=== PATIENT | male | born 1945 | race Asian ===

== ENCOUNTER 2017-09-19 14:56 | Inpatient (IN) | payer MEDICARE, BC ==
[~2017-09-19] VITALS: Ht 167.6 cm; Wt 39.5 kg
--- NOTE | 2017-09-19 15:08 | NUR ---
ANGEL FROM HOME DT SOB AND GENERALIZED WEAKNESS X 4 WEEKS. PATIENT IS AWAKE AND ALERT. NOT IN DISTRESS. SKIN IS WARM TO TOUCH AND NON DIAPHORETIC. PT IS AFEBRILE, PATIENT REPORTED HAVING POOR APETITE. GOWNED PT AND PLACED ON TELE MONITOR. VSS.
--- NOTE | 2017-09-19 15:39 | NUR ---
EKG IN PROGRESS
--- NOTE | 2017-09-19 15:41 | NUR ---
CALLED RT FOR BREATHING TX
[2017-09-19 15:45] LABS: BASOPHILS # (AUTO) 0.2 /CMM (0.0-0.2); BASOPHILS % (AUTO) 3.1 % (0.0-2.0); HEMATOCRIT 34 % (39-51); HEMOGLOBIN 11.6 g/dL (13.5-17.5); LYMPHOCYTES # (AUTO) 0.4 /CMM (0.8-4.8); LYMPHOCYTES % (AUTO) 5.8 % (20.0-44.0); MEAN CORPUSCULAR HEMOGLOBIN 28 PG (26.0-33.0); MEAN CORPUSCULAR HGB CONC 34 g/dl (31.0-36.0); MEAN CORPUSCULAR VOLUME 82 fL (80-96); MONOCYTES # (AUTO) 0.6 /CMM (0.1-1.30); MONOCYTES % (AUTO) 7.7 % (2.0-12.0); NEUTROPHILS # (AUTO) 6.3 /CMM (1.8-8.9); NEUTROPHILS % (AUTO) 82.4 % (43.0-81.0); PLATELET COUNT (AUTO) 554 /CMM (150-450); RDW COEFFICIENT OF VARIATION 15.5 (11.5-15.0); WHITE BLOOD COUNT (AUTO) 7.6 K/uL (4.3-11.0)
[2017-09-19] MEDS ORDERED: IPRATROPIUM NEB FS 0.5 MG/2.5 ML AMPUL.NEB ONE (15:52)
[2017-09-19] MEDS ORDERED: ALBUTEROL FS 2.5 MG/3 ML VIAL.NEB ONE (15:52)
[2017-09-19 15:57] LABS: CARBON DIOXIDE 25 mmol/L (21-32); CHLORIDE 96 mmol/L (98-107); CREATININE 0.8 mg/dL (0.6-1.3); GLUCOSE 112 mg/dL (74-106); POTASSIUM 4.1 mmol/L (3.5-5.1); SODIUM SERUM 127 mmol/L (136-145); UREA NITROGEN, BLOOD 18 mg/dL (7-18)
[2017-09-19] MEDS ORDERED: ALBUTEROL FS 2.5 MG/3 ML VIAL.NEB NEB ONE (16:00)
[2017-09-19] MEDS ORDERED: IPRATROPIUM NEB FS 0.5 MG/2.5 ML AMPUL.NEB NEB ONE (16:00)
[2017-09-19] MEDS ORDERED: IV NS 0.9% 1,000 ML BAG IV ONE (16:00)
[2017-09-19 16:05] LABS: TROPONIN I < 0.017 ng/mL (0.00-0.056)
[2017-09-19 16:09] LABS: ALANINE AMINOTRANSFERASE 20 U/L (12-78); ALBUMIN 1.6 g/dL (3.4-5.0); ALKALINE PHOSPHATASE 180 U/L (46-116); ASPARTATE AMINOTRANSFERASE 16 U/L (15-37); B-TYPE NATRIURETIC PEPTIDE 832 PG/ML (0-125); BILIRUBIN,DIRECT 0.1 mg/dL (0.0-0.2); BILIRUBIN,TOTAL 0.3 mg/dL (0.2-1.0); TOTAL PROTEIN, SERUM 5.9 g/dL (6.4-8.2)
--- NOTE | 2017-09-19 16:32 | NUR ---
CALLED NURSING SUP. FOR TELE BED
[2017-09-19] MEDS ORDERED: BECL10.62 IH (16:34)
[2017-09-19] MEDS ORDERED: ALBU18HF2 INH (16:34)
[2017-09-19] MEDS ORDERED: FERR325T24 PO (16:34)
[2017-09-19] MEDS ORDERED: CEFD300C3 PO (16:34)
[2017-09-19] MEDS ORDERED: MELO-105 PO (16:34)
[2017-09-19] MEDS ORDERED: TRIA1CAP2 PO (16:34)
--- NOTE | 2017-09-19 16:36 | NUR ---
TELE 104 FOR COPD EXACERBATION, GENERALIZED WEAKNESS, FAILURE TO THRIVE, ALLY PEREZ ADMITTING
--- NOTE | 2017-09-19 17:51 | NUR ---
PT TRANSPORTED TO [facility]
[2017-09-19 18:26] VITALS: BP 95/60
--- NOTE | 2017-09-19 18:50 | NUR ---
TITRATOR PATIENT ADMITTED TO ROOM 104, UNDER THE CARE OF ALLY PEREZ, STILL WAITING FOR ADMISSION ORDERS. PATIENT A/OX4, AZERBAIJANI AND YAKUT SPEAKER, DENIES PAIN OR DISCOMFORT AT THIS TIME, ON O2 AT 2LPM VIA NC, SKIN ASSESSMENT DONE, PHOTOS AND TAKEN AND PLACED IN CHART. PATIENT VERBALIZED FEELING SHORT OF BREATH, NEEDS ATTENDED, CALL LIGHT WITHIN REACH, WILL ENDORSE TO SONG PLUGGER FOR ERNESTINA.
[2017-09-19] MEDS ORDERED: IV NS 0.9% 1,000 ML IV PRN (18:57)
[2017-09-19] MEDS ORDERED: MAG HYDROX/AL HYDROX/SIMETH 30 ML UDC PO PRN (19:00)
[2017-09-19] MEDS ORDERED: ONDANSETRON HCL/PF 4 MG/2 ML VIAL IVP PRN (19:00)
[2017-09-19] MEDS ORDERED: MAGNESIUM HYDROXIDE 30 ML UDC PO PRN (19:00)
[2017-09-19] MEDS ORDERED: Z GUARD REMEDY 2 OZ OINT TP PRN (19:00)
[2017-09-19] MEDS ORDERED: HYDROCODONE/APAP 5/325MG 1 EACH TABLET PO PRN (19:00)
[2017-09-19] MEDS ORDERED: ZOLPIDEM TARTRATE 5 MG TABLET PO PRN (19:00)
[2017-09-19 20:00] VITALS: BP 112/58
[2017-09-19] MEDS ORDERED: LEVOFLOXACIN 500 MG /D5W 100ML 500 MG in PREMIX 1 EA IV SCH (20:00)
--- NOTE | 2017-09-19 20:00 | NUR ---
GERMAN RN NOTES RECEIVED PATIENT REPORT FROM AM NURSE. PT. IS A/O X4 ON 2L OXYGEN VIA NC WITH SPO2 OF 98%. PT DENIES ANY PAIN OR DISCOMFORT AT THIS TIME. SPUTUM AND URINE SPECIMENS ARE COLLECTED BY MD ORDER. PT IS PLACED ON AIRBORNE PRECAUTION BY MD ORDER. ALL SAFETY PRECAUTIONS ARE IMPLEMENTED, BED IN LOW, LOCKED POSITION, CALL LIGHT IN REACH. WILL CONT. TO MONITOR.
[2017-09-19] MEDS: ENOXAPARIN SODIUM 30 MG/0.3 ML DISP.SYRIN SQ SCH (21:04)
--- NOTE | 2017-09-19 23:00 | NUR ---
2300 BRANDON PEREZ CALLED WITH ORDER TO PUT PATIENT ON AIRBORNE ISOLATION FOR R/O TB, ORDER NOTED AND CARRIED OUT.
[2017-09-20] VITALS: BP 95/60
[2017-09-20 04:00] VITALS: BP 92/60
[2017-09-20 07:10] LABS: APPEARANCE,URINE TURBID (CLEAR); BILIRUBIN,URINE NEGATIVE (NEGATIVE); BLOOD, URINE NEGATIVE Ery/uL (NEGATIVE); COLOR,URINE DARK YELLO (YELLOW); KETONES,URINE NEGATIVE (NEGATIVE); LEUKOCYTE ESTERASE ,URINE NEGATIVE (NEGATIVE); NITRITE, URINE NEGATIVE (NEGATIVE); UGLUCOSE NEGATIVE (NEGATIVE); UROBILINOGEN,URINE 0.2 EU/dL (0.2)
--- NOTE | 2017-09-20 07:10 | NUR ---
RN INITIAL NOTES: REC'D AWAKE ON BED, NOT IN ANY DISTRESS, A/O X 4, DENIES ANY PAIN/DISCOMFORT. ON NC/2LPM, NO SOB. ON TELEMONITOR, SR 89 BPM. HAS R AC G20, PL, NS X 75 CC/HR INFUSING WELL, NO S/SX OF INFECTION/INFILTRATION NOTED. ISOLATION PREC OBSERVED. PROVIDED COMFORT & SAFETY MEASURES. BED KEPT LOW & IN LOCKED POS. CALL LIGHT PLACED W/IN REACH. WILL CONT TO MONITOR & ATTEND PT NEEDS.
[2017-09-20 07:13] LABS: PROTEIN,URINE TRACE mg/dl (NEGATIVE)
[2017-09-20 07:17] LABS: BACTERIA,URINE Few /HPF (None Seen); RBC,URINE 0-2 /HPF (0-2); WBC,URINE 0-2 /HPF (0-3)
[2017-09-20 07:18] LABS: CALCIUM OXALATE CRYSTALS,UR Many /HPF (None Seen); SQUAMOUS EPITHELIAL CELL,UR Rare /HPF (None Seen); URINE AMORPHOUS URATE Many /HPF (None Seen)
[2017-09-20 07:31] LABS: BILIRUBIN,TOTAL 0.2 mg/dL (0.2-1.0); CALCIUM, SERUM 7.5 mg/dL (8.5-10.1); CREATININE 0.7 mg/dL (0.6-1.3); MAGNESIUM 1.7 mg/dL (1.8-2.4); PHOSPHORUS 2.8 mg/dL (2.5-4.9); POTASSIUM 3.9 mmol/L (3.5-5.1); TOTAL PROTEIN, SERUM 5.5 g/dL (6.4-8.2)
[2017-09-20 07:32] LABS: BASOPHILS % (AUTO) 0.4 % (0.0-2.0); EOSINOPHILS % (AUTO) 0.5 % (0.0-6.0); HEMATOCRIT 33 % (39-51); HEMOGLOBIN 10.8 g/dL (13.5-17.5); LYMPHOCYTES # (AUTO) 0.4 /CMM (0.8-4.8); LYMPHOCYTES % (AUTO) 6.6 % (20.0-44.0); MEAN CORPUSCULAR HEMOGLOBIN 28 PG (26.0-33.0); MEAN CORPUSCULAR HGB CONC 33 g/dl (31.0-36.0); MEAN CORPUSCULAR VOLUME 87 fL (80-96); MONOCYTES # (AUTO) 0.6 /CMM (0.1-1.30); NEUTROPHILS # (AUTO) 5.3 /CMM (1.8-8.9); NEUTROPHILS % (AUTO) 83.5 % (43.0-81.0); PLATELET COUNT (AUTO) 460 /CMM (150-450); RDW COEFFICIENT OF VARIATION 16.8 (11.5-15.0); RED BLOOD CELL COUNT(AUTO) 3.82 MIL/uL (4.5-6.0); WHITE BLOOD COUNT (AUTO) 6.3 K/uL (4.3-11.0)
[2017-09-20 07:46] LABS: ALBUMIN 1.4 g/dL (3.4-5.0)
--- NOTE | 2017-09-20 07:49 | NUR ---
WOUND CARE CONSULT: PT PRESENTS EXTREMELY CACHECTIC WITH VERY BONY SACRAL AREA AND BLANCHABLE REDNESS, PRESENT ON ADMISSION. PT ON FIRST STEP MATTRESS. ALL SKIN PROTECTION MEASURES IN PLACE AND DISCUSSED WITH NURSING STAFF. WILL SEE PRN. ARMANDO IN AGREEMENT WITH PLAN OF CARE. Addendum: 09/20/17 at 0750 by JUAQUIN BELL WNDNU Amended: Links added.
[2017-09-20 08:00] VITALS: BP 135/60
[2017-09-20] MEDS: PANTOPRAZOLE 40 MG TABLET.DR PO SCH (08:17)
[2017-09-20] MEDS: MEGESTROL ACETATE SUSP 400 MG/10 ML UDC PO SCH ×2 (08:17→17:05)
[2017-09-20] MEDS: FERROUS SULFATE (325 MG) 325 MG/TAB TABLET PO SCH (08:17)
[2017-09-20] MEDS: methylPREDNISolone SOD SUCC 40 MG/ML VIAL IV SCH ×2 (08:17→17:05)
[2017-09-20] MEDS: MELOXICAM 7.5 MG TABLET PO SCH (08:17)
[2017-09-20] MEDS: ENSURE ENLIVE CHOC 237 ML CAN PO SCH ×2 (09:02→17:06)
[2017-09-20] MEDS ORDERED: FUROSEMIDE 20 MG/2 ML VIAL IV ONE (09:30)
--- NOTE | 2017-09-20 11:00 | NUR ---
RN NOTES: REC'D INSTRUCTIONS FROM CN TO ORDER AFB W/ CS FOR TODAY & AFB TOMORROW AT 6AM & 6PM. SPUTUM COLLECTED BY RT.
[2017-09-20] MEDS: Magnesium 1GM/D5W 100ML PREMIX 100 ML IV SCH ×2 (11:24→12:23)
[2017-09-20 12:00] VITALS: BP 109/73
[2017-09-20 15:31] LABS: URINE SODIUM, RANDOM 30 mmol/l (40-220)
--- NOTE | 2017-09-20 15:45 | NUR ---
RN NOTES: PT INFORMED THAT DR. NIETO WANTED PREVIOUS CXR RESULTS PRIOR TO HOSPITALIZATION. PER PT, HE WILL CALL HIS EX- MARJORIE TO ASK FOR THIS RECORDS. CONSENT SECURED FOR CT SCAN OF THE CHEST W/ CONTRAST. Addendum: 09/20/17 at 1755 by RENE MERCADO RN ADDENDUM: MARJORIE WAS ABLE TO BRING PT'S PREVIOUS CT SCAN W/ CD. PLACED IN THE CHART.
[2017-09-20] MEDS ORDERED: IOHEXOL-300 100 ML VIAL IV ONE (15:47)
[2017-09-20] MEDS ORDERED: IV NS 0.9% 250 ML IV ONE (15:47)
[2017-09-20] MEDS ORDERED: CT SWABBABLE VALVE TRANS SET 1 EA INFUS.SET MC ONE (15:47)
[2017-09-20 16:00] VITALS: BP 97/68
[2017-09-20 17:43] LABS: OSMOLALITY,URINE 685 mOS/kg (340-1090)
--- NOTE | 2017-09-20 18:30 | NUR ---
RN CLOSING NOTES: NO ACUTE CHANGES NOTED W/IN SHIFT. PT TOLERATED NC/2LPM, NO SOB. ON TELEMONITOR, STILL SR. R AC G20, SL, KEPT PATENT & INTACT. ISOLATION PREC OBSERVED. KEPT WELL RESTED. NEEDS ATTENDED. BED KEPT LOW & IN LOCKED POS. CALL LIGHT PLACED W/IN REACH. WILL ENDORSE TO PM RN FOR ERNESTINA.
[2017-09-20 20:00] VITALS: BP 98/68
[2017-09-20] MEDS ORDERED: LEVOFLOXACIN 250 MG /D5W 50 ML 250 MG in PREMIX 1 EA IV SCH (20:00)
--- NOTE | 2017-09-20 20:50 | NUR ---
RN NOTES PATIENT WITH LOW TEMPERATURE RECTALLY. OBTAINED NEW ORDER FOR NITZA HUGGER AND APPLIED TO PATIENT. WILL CONTINUE TO MONITOR
[2017-09-20] MEDS ORDERED: ACETYLCYSTEINE 20% ORAL SOLN 6,000 MG/30 ML VIAL PO SCH (21:00)
[2017-09-20] MEDS: ENOXAPARIN SODIUM 30 MG/0.3 ML DISP.SYRIN SQ SCH (21:22)
[2017-09-21] VITALS: BP 125/75
[2017-09-21 04:00] VITALS: BP 113/67
--- NOTE | 2017-09-21 06:35 | NUR ---
RN NOTES RT SESAR ATTEMPTED TO COLLECT AFB SPUTUM CULTURE. UNABLE TO COLLECT DUE TO NOT ENOUGH SECRETIONS AND PATIENT REFUSED DEEP SUCTIONING PER RT. RN EXPLAINED RISKS AND BENEFITS X 3 AND STILL REFUSED
[2017-09-21 07:06] LABS: CALCIUM, SERUM 8.7 mg/dL (8.5-10.1); CREATININE 0.8 mg/dL (0.6-1.3); MAGNESIUM 2.4 mg/dL (1.8-2.4); PHOSPHORUS 3.8 mg/dL (2.5-4.9); POTASSIUM 3.8 mmol/L (3.5-5.1)
--- NOTE | 2017-09-21 07:10 | NUR ---
RN INITIAL NOTES: REC'D PT ASLEEP ON BED, EASILY AROUSABLE, NOT IN ANY DISTRESS, A/O X 4, DENIES ANY PAIN/DISCOMFORT AT THIS TIME. ON NC/2LPM, NO SOB. ON TELEMONITOR, SR 78 BPM. HAS R AC G20, SL, PATENT & INTACT, NO S/SX OF INFECTION/INFILTRATION NOTED. ISOLATION PREC OBSERVED. PROVIDED COMFORT & SAFETY MEASURES. BED KEPT LOW & IN LOCKED POS. CALL LIGHT PLACED W/IN REACH. WILL CONT TO MONITOR & ATTEND PT NEEDS. RT INFORMED TO COLLECT SPUTUM SPECIMEN FOR AFB TEST.
[2017-09-21 07:15] LABS: THYROID STIMULATING HORMONE 1.17 uIU/mL (0.358-3.74); URIC ACID 5.4 mg/dL (2.6-7.2)
[2017-09-21 07:17] LABS: THYROID STIMULATING HORMONE 1.13 uIU/mL (0.358-3.74)
[2017-09-21 08:00] VITALS: BP 120/76
[2017-09-21] MEDS: MELOXICAM 7.5 MG TABLET PO SCH (08:17)
[2017-09-21] MEDS: MEGESTROL ACETATE SUSP 400 MG/10 ML UDC PO SCH ×2 (08:17→16:56)
[2017-09-21] MEDS: PANTOPRAZOLE 40 MG TABLET.DR PO SCH (08:17)
[2017-09-21] MEDS: FERROUS SULFATE (325 MG) 325 MG/TAB TABLET PO SCH (08:17)
[2017-09-21] MEDS: methylPREDNISolone SOD SUCC 40 MG/ML VIAL IV SCH ×2 (08:17→16:56)
[2017-09-21] MEDS: ENSURE ENLIVE CHOC 237 ML CAN PO SCH ×2 (08:22→18:30)
[2017-09-21] MEDS: ACETYLCYSTEINE 20% ORAL SOLN 6,000 MG/30 ML VIAL PO SCH ×2 (08:23→22:59)
--- NOTE | 2017-09-21 10:45 | NUR ---
RN NOTES: DR. NIETO MADE AWARE THAT WE TRIED CONTACTING PT'S PREVIOUS MD RE: CXR RESULTS. BUT PER NETWORK CONTROL TECHNICIAN, PT DOESN'T HAVE ANY CXR RESULT. (ONLY CT SCAN - WHICH DR. NIETO ALREADY REVIEWED)
[2017-09-21 12:00] VITALS: BP 114/72
[2017-09-21] MEDS ORDERED: CT SWABBABLE VALVE TRANS SET 1 EA INFUS.SET MC ONE (14:03)
[2017-09-21] MEDS ORDERED: IV NS 0.9% 250 ML IV ONE (14:03)
[2017-09-21] MEDS ORDERED: IOHEXOL-300 100 ML VIAL IV ONE (14:03)
[2017-09-21 16:00] VITALS: BP 141/95
[2017-09-21 16:48] LABS: OCCULT BLOOD STOOL POSITIVE (NEGATIVE)
--- NOTE | 2017-09-21 18:30 | NUR ---
RN CLOSING NOTES: NO ACUTE CHANGES NOTED W/IN SHIFT. PT TOLERATED NC/2LPM, NO SOB. ON TELEMONITOR, STILL SR. LFA G20, SL, KEPT PATENT & INTACT. ISOLATION PREC OBSERVED. KEPT WELL RESTED. NEEDS ATTENDED. BED KEPT LOW & IN LOCKED POS. CALL LIGHT PLACED W/IN REACH. WILL ENDORSE TO PM RN FOR ERNESTINA.
--- NOTE | 2017-09-21 19:30 | NUR ---
RN/TELE NOTES: RECEIVED PT. IN BED W/ HOB ELEVATED. A/O X 4. W/ O2 @ 2LPM VIA N/C SAT 95%. ON TELE MONITOR W/ SR @70. DENIES ANY C/O CHEST PAIN OR SOB AT PRESENT. CONTINENT OF B/B. USES URINAL AND ABLE TO AMBULATE TO BATHROOM. LFA G 20 PATENT AND INTACT W/ NO S/S OF INFECTION/INFILTRATION NOTED. BEDS LOCKED AND IN LOW POSITION. CALL LIGHT W/ REACH. ISOLATION PRECAUTION OBSERVED. WILL CONTINUE TO MONITOR.
[2017-09-21 20:00] VITALS: BP_SYST 104; BP_SYST 121; BP_DIAS 68; BP_DIAS 75
[2017-09-21] MEDS: LEVOFLOXACIN (250MG) 250 MG TABLET PO SCH (21:36)
[2017-09-21] MEDS: ENOXAPARIN SODIUM 30 MG/0.3 ML DISP.SYRIN SQ SCH (21:46)
[2017-09-22] VITALS: BP 108/74
[2017-09-22 04:00] VITALS: BP 107/68
--- NOTE | 2017-09-22 06:29 | NUR ---
TELE/RN NOTES: NO ACUTE CHANGES NOTED DURING THIS SHIFT. REPORT GIVEN TO AM NURSE FOR ERNESTINA.
--- NOTE | 2017-09-22 07:00 | NUR ---
RN NOTES: RECEIVED PT. ON BED , A/Ox4, RESPIRATION ZELDA AND UNLABORED, ON 2L O2 N/C , NO SOB NOTED , ON TELE HR IN 70' SR , LFA IV SITE G 20 CDI, ISOLATION PRECAUTION OBSERVED, SR UP x3, CALL LIGHT WITHIN EASY REACH, BED LOCKED AND IN LOWEST POSITION. CONTINUE TO MONITOR.
[2017-09-22 07:19] LABS: CALCIUM, SERUM 8.7 mg/dL (8.5-10.1); CREATININE 0.9 mg/dL (0.6-1.3); MAGNESIUM 2.3 mg/dL (1.8-2.4); PHOSPHORUS 3.2 mg/dL (2.5-4.9); POTASSIUM 3.9 mmol/L (3.5-5.1)
[2017-09-22 08:00] VITALS: BP 103/79
[2017-09-22 08:09] LABS: IMMUNOGLOBULIN A, SERUM 292 mg/dL (61-437); IMMUNOGLOBULIN G, SERUM 1252 mg/dL (700-1600); IMMUNOGLOBULIN M, SERUM 63 mg/dL (20-172)
[2017-09-22] MEDS: MEGESTROL ACETATE SUSP 400 MG/10 ML UDC PO SCH ×2 (08:20→16:29)
[2017-09-22] MEDS: MELOXICAM 7.5 MG TABLET PO SCH (08:20)
[2017-09-22] MEDS: PANTOPRAZOLE 40 MG TABLET.DR PO SCH (08:20)
[2017-09-22] MEDS: methylPREDNISolone SOD SUCC 40 MG/ML VIAL IV SCH ×2 (08:20→16:29)
[2017-09-22] MEDS: FERROUS SULFATE (325 MG) 325 MG/TAB TABLET PO SCH (08:20)
[2017-09-22] MEDS: ACETYLCYSTEINE 20% ORAL SOLN 6,000 MG/30 ML VIAL PO SCH ×2 (08:21→21:50)
[2017-09-22] MEDS: ENSURE ENLIVE CHOC 237 ML CAN PO SCH ×2 (08:30→16:30)
[2017-09-22 09:06] LABS: HEMATOCRIT 33 % (39-51); HEMOGLOBIN 11.3 g/dL (13.5-17.5); LYMPHOCYTES # (AUTO) 0.2 /CMM (0.8-4.8); LYMPHOCYTES % (AUTO) 1.9 % (20.0-44.0); MEAN CORPUSCULAR HEMOGLOBIN 29 PG (26.0-33.0); MEAN CORPUSCULAR HGB CONC 34 g/dl (31.0-36.0); MEAN CORPUSCULAR VOLUME 84 fL (80-96); MONOCYTES # (AUTO) 0.5 /CMM (0.1-1.30); MONOCYTES % (AUTO) 5.9 % (2.0-12.0); NEUTROPHILS # (AUTO) 7.5 /CMM (1.8-8.9); NEUTROPHILS % (AUTO) 92.2 % (43.0-81.0); PLATELET COUNT (AUTO) 471 /CMM (150-450); RDW COEFFICIENT OF VARIATION 15.9 (11.5-15.0); RED BLOOD CELL COUNT(AUTO) 3.94 MIL/uL (4.5-6.0); WHITE BLOOD COUNT (AUTO) 8.2 K/uL (4.3-11.0)
[2017-09-22 10:19] LABS: AFP, TUMOR MARKER 4.1 ng/mL (0.0-8.3)
--- NOTE | 2017-09-22 10:34 | NUR ---
RT SPUTUM SAMPLE OBTAINED AND PLACED IN [facility]. LAB CALLED FOR PHOTOENGRAVING FINISHER.
[2017-09-22 12:00] VITALS: BP 99/66
--- NOTE | 2017-09-22 12:00 | NUR ---
RN NOTES PT STABLE , CONTINUE TO MONITOR .
[2017-09-22 16:00] VITALS: BP 125/71
[2017-09-22 16:15] LABS: QFT MITOGEN VALUE 0.81 IU/mL (.); QFT TB AG MINUS NIL VALUE 0.01 IU/mL (.); QFT TB AG VALUE 0.17 IU/mL (.); QFT TB GOLD Negative (Negative)
--- NOTE | 2017-09-22 18:00 | NUR ---
RN NOTES RESPIRATION EVEN AND UNLABORED, DENIES ANY DISTRESS AT THIS TIME, TOLERATING REGULAR DIET WELL, SR UP x2, CALL LIGHT WITHIN EASY REACH , WILL ENDOSE TO LABOR SERVICE REPRESENTATIVE NURSE FOR ERNESTINA .
--- NOTE | 2017-09-22 19:20 | NUR ---
RN NOTES RECEIVED PT AWAKE, HOB ELEVATED, WITH O2 INHALATION AT 2LPM VIA NC AND TOLERATED WELL. PT ALERT ANC ORIENTED X4, DENIES ANY PAIN AND DISCOMFORT AT THIS TIME. TELEMONITOR READS SINUS RHYTHM WITH HEART RATE AT 62. ISOLATION PRECAUTION OBSERVED FOR POSSIBLE TB. KEPT COMFORTABLE AND ATTENDED. WILL CONTINUE TO MONITOR PT.
[2017-09-22 20:00] VITALS: BP 123/73
[2017-09-22] MEDS ORDERED: ACETYLCYSTEINE 20% SOLN 800 MG/4 ML VIAL ONE (21:15)
[2017-09-22] MEDS: ENOXAPARIN SODIUM 30 MG/0.3 ML DISP.SYRIN SQ SCH (21:51)
[2017-09-22] MEDS: LEVOFLOXACIN (250MG) 250 MG TABLET PO SCH (22:02)
[2017-09-23] VITALS: BP 119/68
[2017-09-23 04:00] VITALS: BP 104/65
--- NOTE | 2017-09-23 06:54 | NUR ---
RN NOTES PT ASLEEP, NO SIGNS OF DISTRESS AND DISCOMFORT, ON 2LPM O2 VIA NC AND TOLERATED WELL. VITAL SIGNS STABLE, AFEBRILE. NO SIGNIFICANT CHANGE IN CONDITION NOTED. ISOLATION PRECAUTION OBSERVED. ALL NEEDS ATTENDED. WILL ENDORSE TO MORNING RN FOR CONTINUITY OF CARE.
--- NOTE | 2017-09-23 07:00 | NUR ---
RN NOTES RECEIVED PT ON BED, A/Ox4, RESPIRATION EVEN AND UNLABORED, ON 2L O2 N/C , NO SOB NOTED, ON TELE HR IN 80'S , SR , L FA IV SITE CDI, SR UP x3, CALL LIGHT WITHIN EASY REACH, ISOLATION PRECAUTION OBSERVED , HOB ELEVATED, WILL CONTINUE TO MONITOR PT ROBIN .
[2017-09-23 07:08] LABS: EOSINOPHILS % (AUTO) 0.1 % (0.0-6.0); HEMATOCRIT 29 % (39-51); HEMOGLOBIN 9.8 g/dL (13.5-17.5); LYMPHOCYTES # (AUTO) 0.2 /CMM (0.8-4.8); MEAN CORPUSCULAR HEMOGLOBIN 29 PG (26.0-33.0); MEAN CORPUSCULAR HGB CONC 34 g/dl (31.0-36.0); MEAN CORPUSCULAR VOLUME 85 fL (80-96); MONOCYTES # (AUTO) 0.5 /CMM (0.1-1.30); MONOCYTES % (AUTO) 6.3 % (2.0-12.0); NEUTROPHILS # (AUTO) 7.6 /CMM (1.8-8.9); NEUTROPHILS % (AUTO) 90.6 % (43.0-81.0); PLATELET COUNT (AUTO) 418 /CMM (150-450); RDW COEFFICIENT OF VARIATION 15.9 (11.5-15.0); RED BLOOD CELL COUNT(AUTO) 3.43 MIL/uL (4.5-6.0); WHITE BLOOD COUNT (AUTO) 8.3 K/uL (4.3-11.0)
[2017-09-23 07:22] LABS: CALCIUM, SERUM 8.1 mg/dL (8.5-10.1); CREATININE 0.7 mg/dL (0.6-1.3); MAGNESIUM 2.1 mg/dL (1.8-2.4); PHOSPHORUS 2.3 mg/dL (2.5-4.9); POTASSIUM 4.1 mmol/L (3.5-5.1)
[2017-09-23 08:00] VITALS: BP 98/65
[2017-09-23 08:10] LABS: *SPE A/G RATIO 0.6 (0.7-1.7); *SPE ALPHA-1-GLOBULIN 0.5 g/dL (0.0-0.4); *SPE GLOBULIN, TOTAL 3.6 g/dL (2.2-3.9); *SPE M-SPIKE Not Observed g/dL (Not Observed); *SPEGAMMA GLOBULIN 1.1 g/dL (0.4-1.8)
[2017-09-23] MEDS: PANTOPRAZOLE 40 MG TABLET.DR PO SCH (08:17)
[2017-09-23] MEDS: MEGESTROL ACETATE SUSP 400 MG/10 ML UDC PO SCH ×2 (08:17→16:29)
[2017-09-23] MEDS: MELOXICAM 7.5 MG TABLET PO SCH (08:17)
[2017-09-23] MEDS: FERROUS SULFATE (325 MG) 325 MG/TAB TABLET PO SCH (08:18)
[2017-09-23] MEDS: methylPREDNISolone SOD SUCC 40 MG/ML VIAL IV SCH ×2 (08:18→16:29)
[2017-09-23] MEDS: ENSURE ENLIVE CHOC 237 ML CAN PO SCH ×2 (08:19→16:30)
[2017-09-23 12:00] VITALS: BP 93/55
--- NOTE | 2017-09-23 12:00 | NUR ---
RN NOTES PT UP TO THE BATH ROOM , STABLE , CONTINUE TO MONITOR.
[2017-09-23] MEDS ORDERED: K PHOS NEUTRAL 250 MG TABLET PO ONE (15:00)
[2017-09-23 16:00] VITALS: BP 97/58
--- NOTE | 2017-09-23 18:08 | NUR ---
RN NOTES VSS STABLE , PT AT REST , L FA IV SITE CDI, , SR UP x2, CALL LIGHT WITHIN EASY REACH, WILL ENDORSE TO SECONDARY MARKET MANAGER NURSE FOR ERNESTINA .
[2017-09-23 20:00] VITALS: BP 120/65
[2017-09-23] MEDS: LEVOFLOXACIN (250MG) 250 MG TABLET PO SCH (21:07)
[2017-09-23] MEDS: ENOXAPARIN SODIUM 30 MG/0.3 ML DISP.SYRIN SQ SCH (21:08)
[2017-09-24] VITALS: BP 106/58
[2017-09-24 04:00] VITALS: BP 127/80
--- NOTE | 2017-09-24 07:30 | NUR ---
ROPE TOW OPERATOR INITIAL NOTES: RECEIVED PT IN BED, AWAKE. A&O X4. REMAINS OR ISOLATION TO R/O TB. O2 VIA NC AT 2LPM, PT SATURATING WELL AND NO SOB NOTED AT THIS TIME. PT ON TELE MONITOR SR. IV TO LFA #20 GAUGE PATENT AND IN TACT. DENIES ANY PAIN OR DISCOMFORT AT THIS TIME. BED IN LOW LOCKED POSITION, CALL LIGHT WITHIN REACH. PLAN OF CARE DISCUSSED WITH PT. WILL CONTINUE TO MONITOR.
[2017-09-24 08:00] VITALS: BP 124/78
[2017-09-24 08:02] LABS: CALCIUM, SERUM 8.5 mg/dL (8.5-10.1); CREATININE 0.6 mg/dL (0.6-1.3); MAGNESIUM 2.1 mg/dL (1.8-2.4); PHOSPHORUS 2.6 mg/dL (2.5-4.9); POTASSIUM 3.6 mmol/L (3.5-5.1)
[2017-09-24] MEDS: MELOXICAM 7.5 MG TABLET PO SCH (08:15)
[2017-09-24] MEDS: MEGESTROL ACETATE SUSP 400 MG/10 ML UDC PO SCH ×2 (08:15→16:17)
[2017-09-24] MEDS: ENSURE ENLIVE CHOC 237 ML CAN PO SCH ×2 (08:15→16:17)
[2017-09-24] MEDS: FERROUS SULFATE (325 MG) 325 MG/TAB TABLET PO SCH (08:15)
[2017-09-24] MEDS: PANTOPRAZOLE 40 MG TABLET.DR PO SCH (08:16)
[2017-09-24] MEDS: methylPREDNISolone SOD SUCC 40 MG/ML VIAL IV SCH ×2 (08:16→16:17)
[2017-09-24 12:00] VITALS: BP 108/66
[2017-09-24 16:00] VITALS: BP 110/64
--- NOTE | 2017-09-24 18:45 | NUR ---
INTERPRETER DEAF END NOTES: PT REMAINS IN BED AWAKE, A&O X4. DENIES ANY PAIN OR DISCOMFORT AT THIS TIME. REMAINS ON O2 VIA NC, SATURATING >95%. ALL DUE MEDS GIVEN ORDERED WITHOUT COMPLICATIONS. BED IN LOW LOCKED POSITION, CALL LIGHT WITHIN REACH. WILL ENDORSE TO PM SHIFT FOR CONTINUITY OF CARE.
[2017-09-24 20:00] VITALS: BP 109/69
[2017-09-24] MEDS: LEVOFLOXACIN (250MG) 250 MG TABLET PO SCH (21:16)
[2017-09-24] MEDS: ENOXAPARIN SODIUM 30 MG/0.3 ML DISP.SYRIN SQ SCH (21:17)
[2017-09-25] VITALS (7 sets, daily range): BP systolic 111–144; BP diastolic 60–81
--- NOTE | 2017-09-25 07:54 | NUR ---
RN NOTE: PATIENT RECEIVED ALERT AWAKE ORIENTED X4. DENIES PAIN & DISCOMFORT. ON TELE MONITOR SINUS RHYTHM. IV CATH, INTACT, DRESSING DRY & CLEAN. SAFETY MEASURES OBSERVED, CALL LIGHT WITHIN REACH. WILL CONTINUE TO MONITOR.
[2017-09-25] MEDS: FERROUS SULFATE (325 MG) 325 MG/TAB TABLET PO SCH (08:46)
[2017-09-25] MEDS: PANTOPRAZOLE 40 MG TABLET.DR PO SCH (08:47)
[2017-09-25] MEDS: methylPREDNISolone SOD SUCC 40 MG/ML VIAL IV SCH ×2 (08:47→16:55)
[2017-09-25] MEDS: MELOXICAM 7.5 MG TABLET PO SCH (08:47)
[2017-09-25] MEDS: MEGESTROL ACETATE SUSP 400 MG/10 ML UDC PO SCH ×2 (08:47→16:55)
[2017-09-25] MEDS: ENSURE ENLIVE CHOC 237 ML CAN PO SCH ×2 (08:54→16:56)
[2017-09-25 10:17] LABS: CALCIUM, SERUM 8.2 mg/dL (8.5-10.1); CREATININE 0.6 mg/dL (0.6-1.3); MAGNESIUM 1.9 mg/dL (1.8-2.4); PHOSPHORUS 2.7 mg/dL (2.5-4.9); POTASSIUM 3.8 mmol/L (3.5-5.1)
[2017-09-25 10:22] LABS: HEMOGLOBIN 11.1 g/dL (13.5-17.5); RED BLOOD CELL COUNT(AUTO) 4.01 MIL/uL (4.5-6.0); WHITE BLOOD COUNT (AUTO) 8.2 K/uL (4.3-11.0)
[2017-09-25 10:23] LABS: BASOPHILS % (AUTO) 0.1 % (0.0-2.0); EOSINOPHILS % (AUTO) 0.1 % (0.0-6.0); HEMATOCRIT 34 % (39-51); LYMPHOCYTES % (AUTO) 5.4 % (20.0-44.0); MEAN CORPUSCULAR HEMOGLOBIN 28 PG (26.0-33.0); MEAN CORPUSCULAR HGB CONC 32 g/dl (31.0-36.0); MEAN CORPUSCULAR VOLUME 86 fL (80-96); MONOCYTES % (AUTO) 9.4 % (2.0-12.0); PLATELET COUNT (AUTO) 446 /CMM (150-450); RDW COEFFICIENT OF VARIATION 17.1 (11.5-15.0)
--- NOTE | 2017-09-25 16:31 | NUR ---
CHARGE NURSE NOTE PER DR. DALY [PULMO] AFB SMEAR REVIEWED, NEGATIVE X 3 - WILL DC ISOLATION.
--- NOTE | 2017-09-25 18:41 | NUR ---
RN NOTE: PT REMAINS ALERT AWAKE ORIENTED. DERRICK PAIN & DISCOMFORT. NO EPISODE OF COUGH NOTED. VITAL SIGNS WNL. SEEN & ASSESSED BY DR. DALY AT BEDSIDE. RECEIVED VERBAL ORDERS TO D/C ISOLATION. NO FALL/INJURY NOTED DURING SHIFT. SAFETY MEASURES OBSERVED. CALL LIGHT WITHIN REACH. WILL ENDORSE TO PM SHIFT FOR CONTINUITY OF CARE.
--- NOTE | 2017-09-25 19:30 | NUR ---
CEMETERY COUNSELOR INITIAL NOTE, RECEIVED PT IN BED, AWAKE, ALERT AND ORIENTED, ABLE TO COMMUNICATE NEEDS AND CONCERNS, ISOLATION DC ALREADY PER MD, BREATHING EVEN AND UNLABORED, NO S/S OF ACUTE DISTRESS/SOB AT THIS TIME, O2 VIA NC AT 2LPM, SR IN TELE MONITOR, IV TO LFA #20 GAUGE PATENT AND INTACT, NO S/S OF INFILTRATION AT SITE, DENIES ANY PAIN OR DISCOMFORT AT THIS TIME, BED LOCKED AND IN LOWEST POSITION, CALL LIGHT WITHIN REACH, WILL CONTINUE TO MONITOR CLOSELY.
[2017-09-25] MEDS: LEVOFLOXACIN (250MG) 250 MG TABLET PO SCH (20:47)
[2017-09-25] MEDS: ENOXAPARIN SODIUM 30 MG/0.3 ML DISP.SYRIN SQ SCH (20:48)
[2017-09-26] VITALS (8 sets, daily range): BP systolic 127–149; BP diastolic 72–93
--- NOTE | 2017-09-26 06:50 | NUR ---
RN MS CLOSING NOTES, RECEIVED PT IN BED, SLEEPING AT THIS TIME, BREATHING EVEN AND UNLABORED, NO S/S OF ACUTE DISTRESS/SOB AT THIS TIME, O2 VIA NC AT 2LPM, SR IN TELE MONITOR, IV TO LFA #20 GAUGE PATENT AND INTACT, DENIES ANY PAIN OR DISCOMFORT AT THIS TIME, BED LOCKED AND IN LOWEST POSITION, CALL LIGHT WITHIN REACH, NO SIGNIFICANT CHANGE OF CONDITION THROUGHOUT THE NIGHT, WILL ENDORSE CONTINUITY OF CARE TO ONCOMING NURSE.
--- NOTE | 2017-09-26 07:00 | NUR ---
RN NOTES RECEIVED PT ON BED, A/Ox4, RESPIRATION EVEN AND UNLABORED, ON 2L O2 N/C , NO SOB NOTED, HR IN 70'S, SR , LFA #20 IV SITE G 20 , CDI, NO S/S OF INFILTRATION NOTED, SR UP x2, BED LOCKED AND IN LOWEST POSITION, CALL LIGHT WITHIN EASY REACH, WILL CONTINUE TO MONITOR CLOSELY.
[2017-09-26] MEDS: PANTOPRAZOLE 40 MG TABLET.DR PO SCH (08:11)
[2017-09-26] MEDS: MELOXICAM 7.5 MG TABLET PO SCH (08:11)
[2017-09-26] MEDS: MEGESTROL ACETATE SUSP 400 MG/10 ML UDC PO SCH ×2 (08:11→16:09)
[2017-09-26] MEDS: methylPREDNISolone SOD SUCC 40 MG/ML VIAL IV SCH ×2 (08:11→16:09)
[2017-09-26] MEDS: FERROUS SULFATE (325 MG) 325 MG/TAB TABLET PO SCH (08:11)
[2017-09-26] MEDS: ENSURE ENLIVE CHOC 237 ML CAN PO SCH ×2 (08:12→16:11)
[2017-09-26] MEDS ORDERED: SODIUM CL FOR INHALATION 3% 15 ML VIAL.NEB IH ONE (10:30)
--- NOTE | 2017-09-26 11:10 | NUR ---
RN NOTES SPUTUM FOR AFB AND CYTOLOGY ALONG WITH THE REQUEST FORM SENT TO THE LAB PER DR GERSON MENESES .
--- NOTE | 2017-09-26 14:00 | NUR ---
KRYSTAL KAMARA CONSENT OBTAINED FOR BRONCHOSCOPY IN AM .
--- NOTE | 2017-09-26 17:00 | NUR ---
RN NOTES VSS STABLE , PT REFUSED AM LAB FOR SECOND TIME , ALLY PEREZ BRANCH BILLING PAYROLL CLERK NOTIFED
--- NOTE | 2017-09-26 18:26 | NUR ---
RN NOTES PT STABLE , NO DISTRESS NOTED, OUT OF BED TO BR , VSS STABLE , NO SIGNIFICANT CHANGES NOTED ON THIS SHIFT.
--- NOTE | 2017-09-26 19:30 | NUR ---
COMB FIXER INITIAL NOTE, RECEIVED PT IN BED, AWAKE, ALERT AND ORIENTED, ABLE TO COMMUNICATE NEEDS AND CONCERNS, BREATHING EVEN AND UNLABORED, NO S/S OF ACUTE DISTRESS/SOB AT THIS TIME, NO C/O PAIN OER DISCOMFORT REPORTED, O2 VIA NC AT 2LPM, SR IN THE TELE MONITOR, IV TO LFA #20 GAUGE PATENT AND INTACT, NO S/S OF INFILTRATION AT SITE, DENIES ANY PAIN OR DISCOMFORT AT THIS TIME, WILL START IVF AT MIDNIGHT ORDERED, BED LOCKED AND IN LOWEST POSITION, CALL LIGHT WITHIN REACH, WILL HAVE BRONCHOSCOPY IN THE MORNING, PATIENT EDUCATION PROVIDED REGARDING PROCEDURE AND THAT WILL BE NPO AFTER SPECIFIC TIME, PATIENT VERBALIZED UNDERSTANDING, WILL CONTINUE TO MONITOR CLOSELY.
[2017-09-26] MEDS: LEVOFLOXACIN (250MG) 250 MG TABLET PO SCH (20:32)
[2017-09-26] MEDS: ENOXAPARIN SODIUM 30 MG/0.3 ML DISP.SYRIN SQ SCH (20:32)
[2017-09-26] MEDS: TEMAZEPAM 15 MG CAPSULE PO PRN (23:45)
[2017-09-26] MEDS ORDERED: IV D5/ 0.9% NACL 1,000 ML IV SCH (23:59)
[2017-09-27] VITALS: BP 123/69
[2017-09-27 04:00] VITALS: BP 130/82
--- NOTE | 2017-09-27 05:10 | NUR ---
TOOL CARRIER NOTES, ATTEMPTED TO COLLECT SPUTUM AT THIS TIME, AND PATIENT REFUSED, HE STATED THAT HE WILL DO THAT LATER IN THE MORNING.
--- NOTE | 2017-09-27 05:30 | NUR ---
PUNCHING MACHINE OPERATOR NOTES, PATIENT WILLING TO ATTEMPT COLLECTION OF SPUTUM, COLLECTED.
--- NOTE | 2017-09-27 06:24 | NUR ---
SUPERVISOR PHOTOSTAT CLOSING NOTES, PATIENT AWAKE, ALERT AND ORIENTED, ABLE TO COMMUNICATE NEEDS AND CONCERNS, BREATHING EVEN AND UNLABORED, NO S/S OF ACUTE DISTRESS/SOB AT THIS TIME, O2 VIA NC AT 2LPM, SR IN TELE MONITOR, IV TO LFA #20 GAUGE PATENT AND INTACT, IVF INFUSING WELL AND PATIENT TOLERATED WELL, NPO SINCE 5AM FOR BRONCHOSCOPY TODAY, DENIES ANY PAIN OR DISCOMFORT AT THIS TIME, BED LOCKED AND IN LOWEST POSITION, CALL LIGHT WITHIN REACH, NO SIGNIFICANT CHANGE OF CONDITION THROUGHOUT THE NIGHT, SPUTUM COLLECTED, WILL ENDORSE CONTINUITY OF CARE TO ONCOMING NURSE.
--- NOTE | 2017-09-27 07:00 | NUR ---
RN NOTES RECEIVED PT ON BED, A/Ox4. ON RA ,RESPIRATION EVEN AND UNLABORED, NO DISTRESS NOTED, ON TELE HR IN 90'S , SR , PT IS NPO FOR BRONCHOSCOPY TODAY , D5NS AT 75CC/HR RUNNING VIA L FA IV SITE, SR UP x3, CALL LIGHT WITHIN EASY REACH , BED LOCKED AND IN LOWEST POSITION, CONTINUE TO MONITOR
[2017-09-27 07:19] LABS: CALCIUM, SERUM 7.9 mg/dL (8.5-10.1); CREATININE 0.5 mg/dL (0.6-1.3); POTASSIUM 3.6 mmol/L (3.5-5.1)
[2017-09-27 07:20] LABS: BASOPHILS % (AUTO) 0.1 % (0.0-2.0); EOSINOPHILS % (AUTO) 0.1 % (0.0-6.0); HEMATOCRIT 28 % (39-51); HEMOGLOBIN 9.7 g/dL (13.5-17.5); LYMPHOCYTES # (AUTO) 0.2 /CMM (0.8-4.8); LYMPHOCYTES % (AUTO) 4.4 % (20.0-44.0); MEAN CORPUSCULAR HEMOGLOBIN 30 PG (26.0-33.0); MEAN CORPUSCULAR HGB CONC 34 g/dl (31.0-36.0); MEAN CORPUSCULAR VOLUME 86 fL (80-96); MONOCYTES # (AUTO) 0.6 /CMM (0.1-1.30); MONOCYTES % (AUTO) 11.4 % (2.0-12.0); NEUTROPHILS # (AUTO) 4.5 /CMM (1.8-8.9); PLATELET COUNT (AUTO) 346 /CMM (150-450); RDW COEFFICIENT OF VARIATION 16.5 (11.5-15.0); RED BLOOD CELL COUNT(AUTO) 3.29 MIL/uL (4.5-6.0); WHITE BLOOD COUNT (AUTO) 5.3 K/uL (4.3-11.0)
[2017-09-27 08:00] VITALS: BP 146/83
[2017-09-27] MEDS: ENSURE ENLIVE CHOC 237 ML CAN PO SCH ×2 (08:00→16:50)
[2017-09-27] MEDS: MELOXICAM 7.5 MG TABLET PO SCH (08:19)
[2017-09-27] MEDS: MEGESTROL ACETATE SUSP 400 MG/10 ML UDC PO SCH ×2 (08:19→16:49)
[2017-09-27] MEDS: PANTOPRAZOLE 40 MG TABLET.DR PO SCH (08:19)
[2017-09-27] MEDS: FERROUS SULFATE (325 MG) 325 MG/TAB TABLET PO SCH (08:19)
[2017-09-27] MEDS: methylPREDNISolone SOD SUCC 40 MG/ML VIAL IV SCH ×2 (08:19→16:49)
[2017-09-27] MEDS ORDERED: IV D5/ 0.9% NACL 1,000 ML IV PRN (09:56)
[2017-09-27 11:18] LABS: LYMPHOCYTES % (MANUAL) 14 % (16-48); MONOCYTES % (MANUAL) 3 % (0-11.0); NEUTROPHILS % (MANUAL) 83 (42-76)
[2017-09-27 12:00] VITALS: BP 136/83
--- NOTE | 2017-09-27 14:31 | NUR ---
RN NOTES PT TO OR FOR BRONCHOSCOPY AT THIS TIME IN STABLE CONDITION .
[2017-09-27] MEDS ORDERED: FENTANYL PF 100MCG/2ML AMPUL ONE (14:32)
[2017-09-27] MEDS ORDERED: ROCURONIUM BROMIDE 50 MG/5 ML ONE (14:32)
[2017-09-27] MEDS ORDERED: MIDAZOLAM HCL 2 MG/2ML VIAL ONE (14:32)
[2017-09-27] MEDS ORDERED: ALBUTEROL FS 2.5 MG/3 ML VIAL.NEB ONE (15:31)
[2017-09-27] MEDS ORDERED: ALBUTEROL 17GM INHALER ONE (15:33)
[2017-09-27] MEDS ORDERED: ALBUTEROL HALF STRENGTH 1.25 MG/3 ML VIAL.NEB ONE (15:46)
[2017-09-27] MEDS ORDERED: ALBUTEROL HALF STRENGTH 1.25 MG/3 ML VIAL.NEB NEB ONE (16:00)
[2017-09-27 16:49] VITALS: BP 140/89
--- NOTE | 2017-09-27 16:49 | NUR ---
RN NOTES PT BACK FROM OR , VSS STABLE , CONTINUE TO MONITOR
[2017-09-27] MEDS ORDERED: IPRATROPIUM NEB FS 0.5 MG/2.5 ML AMPUL.NEB NEB ONE (17:30)
[2017-09-27] MEDS ORDERED: ALBUTEROL FS 2.5 MG/3 ML VIAL.NEB NEB ONE (17:30)
--- NOTE | 2017-09-27 18:26 | NUR ---
RN NOTES VSS STABLE , PT STABLE , EATING DINNER , IVF D/LANE PER ALLY WASTE REDUCTION COORDINATOR. BED LOCKED AND IN LOWEST POSITION , WILL ENDORSE TO RUBBER MOLD MAKER NURSE FOR ERNESTINA .
[2017-09-27 20:00] VITALS: BP 122/80
--- NOTE | 2017-09-27 20:00 | NUR ---
RN INITIAL NOTES RECEIVED PT AWAKE ON BED, FAMILY AT BEDSIDE. PT IS A/O X3, ON 2L NASAL CANNULA, NO S/S OF RESP DISTRESS, SATURATING WELL. COMPLAINTS OF ACHING THROAT PAIN 5/10 DUE TO BRONCHOSCOPY THAT WAS DONE EARLIER TODAY. CURRENTLY SINUS TACH ON THE MONITOR, HR 120'S. PT IS CONTINENT AND ABLE TO USE THE URINAL NEEDED. LEFT FOREARM 20G SL FLUSHED AND PATENT, NO S/S OF INFILTRATION/INFECTION, DRESSING CDI. BED LOW AND LOCKED, SIDERAILS UP, BED ALARM ON, CALL LIGHT WITHIN REACH. WILL MONITOR
[2017-09-27] MEDS: HYDROCODONE BIT/HOMATROPINE 5 ML UDC PO PRN ×2 (20:07→23:30)
[2017-09-27] MEDS: LEVOFLOXACIN (250MG) 250 MG TABLET PO SCH (20:07)
[2017-09-27] MEDS: ENOXAPARIN SODIUM 30 MG/0.3 ML DISP.SYRIN SQ SCH (20:08)
[2017-09-27] MEDS: IPRATROPIUM NEB FS 0.5 MG/2.5 ML AMPUL.NEB NEB PRN ×2 (20:16→23:12)
[2017-09-27] MEDS: ALBUTEROL FS 2.5 MG/0.5 ML VIAL.NEB NEB PRN ×2 (20:17→23:12)
[2017-09-27] MEDS: TEMAZEPAM 15 MG CAPSULE PO PRN (23:33)
[2017-09-28] VITALS: BP 113/66
[2017-09-28 04:00] VITALS: BP 122/83
--- NOTE | 2017-09-28 06:35 | NUR ---
RN CLOSING NOTES PT REMAINS STABLE OF THE MOMENT. ALL DUE MEDS GIVEN, AM CARE PROVIDED. WILL ENDORSE ERNESTINA TO AM RN
--- NOTE | 2017-09-28 07:10 | NUR ---
TELE/RN INITIAL NOTES RECEIVED PT IN BED, A/O X4, ON 2L O2 VIA NC, TOLERATING WELL, NO SOB NOTED. SINUS TACHY ON TELEMONITOR. NO C/O PAIN AT THIS TIME. WITH INTACT AND PATENT LFA SL, NO SIGNS OF INFECTION/INFILTRATION NOTED. HOB ELEVATED. SAFETY MEASURES IN PLACED. CALL LIGHT WITHIN REACH. WILL CONT TO MONITOR
[2017-09-28 08:00] VITALS: BP 127/89
[2017-09-28] MEDS: ENSURE ENLIVE CHOC 237 ML CAN PO SCH ×2 (08:17→16:34)
[2017-09-28] MEDS: PANTOPRAZOLE 40 MG TABLET.DR PO SCH (08:21)
[2017-09-28] MEDS: methylPREDNISolone SOD SUCC 40 MG/ML VIAL IV SCH ×2 (08:41→16:34)
[2017-09-28] MEDS: HYDROCODONE BIT/HOMATROPINE 5 ML UDC PO PRN ×2 (08:41→16:54)
[2017-09-28] MEDS: MEGESTROL ACETATE SUSP 400 MG/10 ML UDC PO SCH ×2 (08:41→16:34)
[2017-09-28] MEDS: MELOXICAM 7.5 MG TABLET PO SCH (08:41)
[2017-09-28] MEDS: FERROUS SULFATE (325 MG) 325 MG/TAB TABLET PO SCH (08:41)
[2017-09-28] MEDS: IPRATROPIUM NEB FS 0.5 MG/2.5 ML AMPUL.NEB NEB PRN (09:28)
[2017-09-28] MEDS: ALBUTEROL FS 2.5 MG/0.5 ML VIAL.NEB NEB PRN (09:28)
--- NOTE | 2017-09-28 09:30 | NUR ---
RN NOTES NOTIFIED RT SARAHI THAT PT FOR AFB. UNABLE TO COLLECT SAMPLE AT THIS TIME.
--- NOTE | 2017-09-28 10:30 | NUR ---
RN NOTES ATTEMPTED TO COLLECT SPUTUM, STILL UNABLE TO COLLECT SAMPLE. WILL FOLLOW UP
--- NOTE | 2017-09-28 11:15 | NUR ---
RN NOTES RECEIVED TELEPHONE ORDER FROM CONDITIONER TUMBLER OPERATOR AMY: START ON CLEAR LIQUIDS DIET; NPO POST MIDNIGHT; STAT GOLYTELY X1 BOTTLE, STAT MAGNESIUM CITRATE X 1 BOTTLE; FLEET ENEMA X2 PRN IF STOOL NOT CLEAR BY TOMORROW AM; CONSENT FOR EGD AND COLONOSCOPY
[2017-09-28] MEDS ORDERED: MAGNESIUM CITRATE 296 ML BOTTLE PO STA ×2 (11:20→11:56)
[2017-09-28] MEDS ORDERED: NA PHOS,M-B/NA PHOS,DI-BA 1 EA ENEMA RC PRN (11:30)
[2017-09-28] MEDS ORDERED: PEG 3350/NA SULF,BICARB,CL/KCL 4,000 ML BOTTLE PO STA (11:38)
[2017-09-28 12:00] VITALS: BP 129/76
[2017-09-28] MEDS ORDERED: LORAZEPAM INJ 2 MG/ML VIAL IV PRN (12:30)
[2017-09-28] MEDS ORDERED: MORPHINE SULFATE SOLN CONCENTRATED 20 MG/ML SL PRN (12:30)
[2017-09-28] MEDS ORDERED: ATROPINE SULFATE OPHTH SOLN 15 ML BOTTLE SL PRN (12:30)
[2017-09-28] MEDS: LEVOFLOXACIN (750 MG) 750 MG TABLET PO SCH (15:40)
[2017-09-28 16:00] VITALS: BP 129/83
--- NOTE | 2017-09-28 16:35 | NUR ---
RN NOTES HELD DUE ENSURE. PT IS ON CLEAR LIQUID DIET
--- NOTE | 2017-09-28 19:03 | NUR ---
RN NOTES PT REMAINED IN STABLE CONDITION. NO ACUTE DISTRESS NOTED THROUGHOUT SHIFT. SAFETY MEASURES OBSERVED AT ALL TIMES. ALL NEEDS ANTICIPATED, ENDORSED TO PM SHIFT NURSE FOR ERNESTINA
--- NOTE | 2017-09-28 19:30 | NUR ---
MEDICAL SALES ASSOCIATE NOTE PT RECEIVED AWAKE AND ALERT. ON 2L OF O2 VIA NC AND SATURATING WELL. EXPLAINED TO PT ABOUT DRINKING ALL OF GOLYTELY BOTTLE UNTIL HAVING CLEAR BOWEL MOVEMENTS. PT VERBALIZED UNDERSTANDING. NPO AT MIDNIGHT. WILL MONITOR.
[2017-09-28 20:00] VITALS: BP 135/82
[2017-09-28] MEDS: ENOXAPARIN SODIUM 30 MG/0.3 ML DISP.SYRIN SQ SCH (20:56)
--- NOTE | 2017-09-28 22:00 | NUR ---
PLATE MAKER NOTE PT REFUSING TO DRINK GOLYTELY C/O DIZZINESS. EXPLAINED RISKS AND BENEFITS. PT SAID HE WOULD DRINK A LITTLE BIT MORE.
[2017-09-29] VITALS: BP 145/77
--- NOTE | 2017-09-29 03:30 | NUR ---
DIGGING MACHINE OPERATOR NOTE PT REFUSING TO DRINK GOLYTELY. ENCOURAGED TO DRINK. LEFT MESSAGE TO DR. MILLS. AWAITING CALL BACK.
[2017-09-29 04:00] VITALS: BP 136/74
[2017-09-29] MEDS ORDERED: MAGNESIUM CITRATE 296 ML BOTTLE PO ONE (04:00)
[2017-09-29] MEDS ORDERED: NA PHOS,M-B/NA PHOS,DI-BA 1 EA ENEMA RC ONE (04:00)
--- NOTE | 2017-09-29 04:00 | NUR ---
RESIDENTIAL REAL ESTATE SALES MANAGER NOTE RECEIVED CALL BACK FROM DR MILLS WITH ORDERS FOR 2 FLEET ENEMAS NOW AND 1 BOTTLE OF MAG CITRATE. ORDERS NOTED AND CARRIED OUT. PT WELL TOLERATED. WILL MONITOR.
--- NOTE | 2017-09-29 07:13 | NUR ---
CHECKROOM ATTENDANT NOTES: RECEIVED PT ON BED ALERT, AWAKE AND ORIENTED X3. ABLE TO MAKE NEEDS KNOWN. NO ACUTE DISTRESS NOTED. NO COMPLAINTS OF PAIN OR DISCOMFORT AT THIS TIME. BREATHING EVEN AND UNLABORED WITH NORMAL RESPIRATIONS. IV ON LEFT FOREARM G20 INTACT AND PATENT. KEPT CLEAN, DRY AND COMFORTABLE. SAFETY AND FALL PRECAUTIONS OBSERVED AND MAINTAINED. CALL LIGHT WITHIN REACH. ALL NEEDS ATTENDED. WILL CONTINUE TO MONITOR PT.
[2017-09-29] MEDS: PANTOPRAZOLE 40 MG TABLET.DR PO SCH (07:30)
[2017-09-29 08:00] VITALS: BP 135/75
[2017-09-29] MEDS: ENSURE ENLIVE CHOC 237 ML CAN PO SCH ×2 (08:00→17:55)
--- NOTE | 2017-09-29 09:00 | NUR ---
CRYPTOANALYSIS TEACHER NOTES: PT CAME BACK FROM OR, ALERT AND AWAKE. IN NO APPARENT DISTRESS. VITAL SIGNS WNL. SINUS RHYTHM IN TELE MONITOR, HR 89. DENIES PAIN AT THIS TIME. NO SOB NOTED. CALL LIGHT WITHIN REACH. SAFETY AND FALL PRECAUTIONS OBSERVED AND MAINTAINED. WILL CONTINUE TO MONITOR PT.
[2017-09-29] MEDS: MELOXICAM 7.5 MG TABLET PO SCH (09:20)
[2017-09-29] MEDS: MEGESTROL ACETATE SUSP 400 MG/10 ML UDC PO SCH ×2 (09:20→17:45)
[2017-09-29] MEDS: FERROUS SULFATE (325 MG) 325 MG/TAB TABLET PO SCH (09:20)
[2017-09-29] MEDS: methylPREDNISolone SOD SUCC 40 MG/ML VIAL IV SCH ×2 (09:20→17:45)
[2017-09-29 12:00] VITALS: BP 130/73
[2017-09-29 16:00] VITALS: BP 120/74
--- NOTE | 2017-09-29 18:28 | NUR ---
TOP CAGER ENDING NOTES PT RESTING IN BED WITH NO ACUTE DISTRESS OR SOB, ALL DUE MEDS GIVEN, ALL NEEDS MET, PTS IV SITE LT FA 20 G IS INFILTRATED, CHECKED AND IV SITE IS NOT PATENT ANYMORE, WILL NEED NEW IV INSERTION, A&O X4 THAI, WILL CONTINUE CARE.
[2017-09-29 20:00] VITALS: BP 133/85
[2017-09-29] MEDS: ENOXAPARIN SODIUM 30 MG/0.3 ML DISP.SYRIN SQ SCH (21:43)
[2017-09-30] VITALS: BP 134/93
[2017-09-30] MEDS: TEMAZEPAM 15 MG CAPSULE PO PRN ×2 (00:44→22:50)
[2017-09-30] MEDS: HYDROCODONE BIT/HOMATROPINE 5 ML UDC PO PRN (00:46)
[2017-09-30 04:00] VITALS: BP 126/79
[2017-09-30 06:56] LABS: EOSINOPHILS % (AUTO) 0.1 % (0.0-6.0); HEMATOCRIT 27 % (39-51); HEMOGLOBIN 8.5 g/dL (13.5-17.5); LYMPHOCYTES # (AUTO) 0.3 /CMM (0.8-4.8); LYMPHOCYTES % (AUTO) 3.5 % (20.0-44.0); MEAN CORPUSCULAR HEMOGLOBIN 28 PG (26.0-33.0); MEAN CORPUSCULAR HGB CONC 32 g/dl (31.0-36.0); MEAN CORPUSCULAR VOLUME 88 fL (80-96); MONOCYTES # (AUTO) 0.6 /CMM (0.1-1.30); NEUTROPHILS # (AUTO) 6.6 /CMM (1.8-8.9); NEUTROPHILS % (AUTO) 88.4 % (43.0-81.0); PLATELET COUNT (AUTO) 315 /CMM (150-450); RDW COEFFICIENT OF VARIATION 19.1 (11.5-15.0); RED BLOOD CELL COUNT(AUTO) 3.03 MIL/uL (4.5-6.0); WHITE BLOOD COUNT (AUTO) 7.5 K/uL (4.3-11.0)
--- NOTE | 2017-09-30 07:09 | NUR ---
CHILD CARE WORKER NOTES: RECEIVED PT ON BED ALERT AND AWAKE, NO ACUTE DISTRESS NOTED. DENIES PAIN AT THIS TIME. BREATHING EVEN AND UNLABORED WITH NORMAL RESPIRATIONS. ON TELE MONITOR, SINUS RHYTHM HR 75. KEPT CLEAN, DRY AND COMFORTABLE. CALL LIGHT PLACED WITHIN REACH. SAFETY AND FALL PRECAUTIONS OBSERVED AND MAINTAINED. ENCOURAGED TO VERBALIZE NEEDS AND CONCERNS AND TO CALL FOR ASSISTANCE IF NEEDED. WILL CONTINUE TO MONITOR PT.
[2017-09-30 07:12] LABS: CALCIUM, SERUM 7.5 mg/dL (8.5-10.1); CREATININE 0.5 mg/dL (0.6-1.3); POTASSIUM 4.2 mmol/L (3.5-5.1)
[2017-09-30] MEDS: PANTOPRAZOLE 40 MG TABLET.DR PO SCH (07:53)
[2017-09-30 08:00] VITALS: BP 127/73
--- NOTE | 2017-09-30 08:00 | NUR ---
COMMERCIAL PRINT SALESMAN NOTES: RECEIVED A CALL FROM INFECTIOUS DSE REGARDING PATIENT'S POSITIVE RESULT FROM BRONCHIAL BRUSHING. AIRBORNE ISOLATION IMPLEMENTED. WILL CONTINUE TO MONITOR PT.
[2017-09-30] MEDS: methylPREDNISolone SOD SUCC 40 MG/ML VIAL IV SCH ×2 (08:18→16:36)
[2017-09-30] MEDS: FERROUS SULFATE (325 MG) 325 MG/TAB TABLET PO SCH (08:18)
[2017-09-30] MEDS: MELOXICAM 7.5 MG TABLET PO SCH (08:18)
[2017-09-30] MEDS: ENSURE ENLIVE CHOC 237 ML CAN PO SCH ×2 (08:18→16:38)
[2017-09-30] MEDS: MEGESTROL ACETATE SUSP 400 MG/10 ML UDC PO SCH ×2 (08:18→16:36)
[2017-09-30 12:00] VITALS: BP 120/78
--- NOTE | 2017-09-30 14:00 | NUR ---
CALENDERER NOTES: RECEIVED A CALL FROM THE LAB REGARDING PTS POSITIVE AFB RESULT ON SPUTUM SAMPLE THAT WAS SENT LAST . PRODUCT DEMONSTRATOR ALLY PEREZ AND ID NURSE MADE AWARE. WILL CONTINUE TO MONITOR PT.
[2017-09-30] MEDS: LEVOFLOXACIN (750 MG) 750 MG TABLET PO SCH (15:04)
[2017-09-30 16:00] VITALS: BP 129/79
--- NOTE | 2017-09-30 16:14 | NUR ---
MARKING CLERK NOTES: SPOKE TO MENA FROM LAB REGARDING DR. WYNN'S ORDER FOR TB AND MAC PCR PROBE TESTING ON RECENT AFB POS STAIN FROM [facility], PER MENA SHE WILL TRY TO CALL [facility] AND ASK IF THEY CAN DO THE TEST. WILL FOLLOW UP.
[2017-09-30] MEDS: AZITHROMYCIN 250 MG TABLET PO SCH (16:36)
--- NOTE | 2017-09-30 17:12 | NUR ---
RN GYNECOLOGY NOTES: RECEIVED A CALL FROM LAB REGARDING THE RESPONSE OF [facility] STATING THAT FRESH SPECIMEN SHOULD BE COLLECTED AGAIN AND THEY CAN'T DO AN ADD ON ON THE TEST THAT THEY ALREADY RECEIVED. DR. WYNN NOTIFIED.
[2017-09-30] MEDS: ETHAMBUTOL HCL (400 MG) 400 MG TABLET PO SCH (18:11)
[2017-09-30] MEDS: CEFTRIAXONE 1 G in IV D5W 50 ML IV SCH (18:11)
--- NOTE | 2017-09-30 18:30 | NUR ---
SALES DEVELOPMENT EXECUTIVE NOTES: SPOKE WITH DR. WYNN, NEW ORDER FOR AF[employer] SPUTUM TB AND MAC PCR PROBE TESTING. ORDER CARRIED OUT.
--- NOTE | 2017-09-30 19:30 | NUR ---
REGIONAL MERCHANDISING MANAGER NOTES: PT ON BED. NO ACUTE DISTRESS NOTED. NO COMPLAINTS OF PAIN OR DISCOMFORT. NO SOB NOTED. WILL ENDORSE TO SENIOR COMPLIANCE OFFICER FOR CONTINUITY OF CARE.
--- NOTE | 2017-09-30 19:30 | NUR ---
TELE/RN NOTES: RECEIVED PT. IN BED W/ RESPIRATIONS EVEN AND UNLABORED. A/O X 3-4. W/ O2 @2LPM VIA N/C SAT. 98%. ON TELE MONITOR W/ SR @ 84. ON NEGATIVE PRESSURE FOR TB. USES URINAL AND BRP NEEDED. HAS RFA G #22 SL PATENT AND INTACT W/ NO S/S OF INFECTION/INFILTRATION NOTED. CALL LIGHT W/REACH. WILL CONTINUE TO MONITOR.
[2017-09-30 20:00] VITALS: BP 110/67
[2017-09-30] MEDS: ENOXAPARIN SODIUM 30 MG/0.3 ML DISP.SYRIN SQ SCH (21:24)
[2017-09-30] MEDS: PYRAZINAMIDE 500 MG TABLET PO SCH (21:25)
[2017-09-30] MEDS: ISONIAZID (300 MG) 300 MG TABLET PO SCH (21:25)
[2017-09-30] MEDS: RIFAMPIN 300 MG CAPSULE PO SCH (21:25)
[2017-09-30] MEDS: ALBUTEROL FS 2.5 MG/0.5 ML VIAL.NEB NEB PRN (22:38)
[2017-09-30] MEDS: IPRATROPIUM NEB FS 0.5 MG/2.5 ML AMPUL.NEB NEB PRN (22:38)
--- NOTE | 2017-09-30 23:30 | NUR ---
MORTGAGE ORIGINATOR OPENING NOTES: RECEIVED PT FROM RN, MARGE. PT IS ON 2LPM VIA NC. PT HAS IV ON R FOREARM #22G AND IS PATENT AND INTACT. CURRENTLY S/L. PT ON TELE BOX AND READING SHOWS SR 81. NO SOB NOTED. NO S/S OF DISTRESS. PT IS A/OX4. PT IS ABOUT TO GO TO SLEEP. CALL LIGHT WITHIN PT'S REACH. BED KEPT IN LOW, LOCKED POSITION, AND SIDE RAILSX 2 UP. WILL CONTINUE TO MONITOR PT.
--- NOTE | 2017-09-30 23:30 | NUR ---
SPECIAL DELIVERY WORKER NOTES: REPORT GIVEN TO RN. VILLEDA FOR ERNESTINA.
[2017-10-01] VITALS: BP 144/80
[2017-10-01 04:00] VITALS: BP 133/72
[2017-10-01 06:52] LABS: HEMATOCRIT 29 % (39-51); HEMOGLOBIN 9.2 g/dL (13.5-17.5); LYMPHOCYTES # (AUTO) 0.2 /CMM (0.8-4.8); LYMPHOCYTES % (AUTO) 2.3 % (20.0-44.0); MEAN CORPUSCULAR HEMOGLOBIN 29 PG (26.0-33.0); MEAN CORPUSCULAR HGB CONC 32 g/dl (31.0-36.0); MEAN CORPUSCULAR VOLUME 89 fL (80-96); MONOCYTES # (AUTO) 0.5 /CMM (0.1-1.30); MONOCYTES % (AUTO) 6.7 % (2.0-12.0); NEUTROPHILS # (AUTO) 7.2 /CMM (1.8-8.9); PLATELET COUNT (AUTO) 324 /CMM (150-450); RDW COEFFICIENT OF VARIATION 19.3 (11.5-15.0); RED BLOOD CELL COUNT(AUTO) 3.23 MIL/uL (4.5-6.0); WHITE BLOOD COUNT (AUTO) 7.9 K/uL (4.3-11.0)
--- NOTE | 2017-10-01 06:59 | NUR ---
RN PROGRESSIVE CARE UNIT CLOSING NOTES: ALL NEEDS WERE ATTENDED AND ANTICIPATED FOR. PT ON 2LPM VIA NC AND IS TOLERATING WELL. PT ASLEEP AT THIS TIME. PT IS ASLEEP AT THIS TIME. PT ON TELE BOX AND READING SHOWS ST 117. CALL LIGHT WITHIN PT'S REACH. BED KEPT IN LOW, LOCKED POSITION, AND SIDE RAILS X 2UP. AFB SPUTUM COLLECTED AND COLLECTED BY LAB. TB PRECAUTIONS MADE. WILL ENDORSE TO AM NURSE FOR ERNESTINA.
[2017-10-01 07:09] LABS: CALCIUM, SERUM 7.8 mg/dL (8.5-10.1); CREATININE 0.6 mg/dL (0.6-1.3); POTASSIUM 3.7 mmol/L (3.5-5.1)
[2017-10-01 08:00] VITALS: BP 103/72
--- NOTE | 2017-10-01 08:30 | NUR ---
SOLAR TECH NOTES PT IN BED, AWAKE, ALERT AND ORIENTED, NO COMPLAINT OF PAIN, RESPIRATIONS NORMAL, CALL LIGHT WITHIN REACH, NEEDS ATTENDED, ISOLATION PRECAUTIONS OBSERVED.
[2017-10-01] MEDS: methylPREDNISolone SOD SUCC 40 MG/ML VIAL IV SCH (09:34)
[2017-10-01] MEDS: PANTOPRAZOLE 40 MG TABLET.DR PO SCH (09:34)
[2017-10-01] MEDS: FERROUS SULFATE (325 MG) 325 MG/TAB TABLET PO SCH (09:34)
[2017-10-01] MEDS: MELOXICAM 7.5 MG TABLET PO SCH (09:35)
[2017-10-01] MEDS: ENSURE ENLIVE CHOC 237 ML CAN PO SCH ×2 (09:35→17:32)
[2017-10-01] MEDS: MEGESTROL ACETATE SUSP 400 MG/10 ML UDC PO SCH ×2 (09:35→17:32)
[2017-10-01 12:00] VITALS: BP_SYST 135; BP_SYST 97; BP_DIAS 72; BP_DIAS 75
[2017-10-01] MEDS: HYDROCODONE BIT/HOMATROPINE 5 ML UDC PO PRN (12:17)
--- NOTE | 2017-10-01 13:30 | NUR ---
LEAN MANUFACTURING SPECIALIST NOTES PT IN BED, AWAKE, ALERT AND ORIENTED, NOT IN PAIN OR DISTRESS, SEEN BY ALLY HAT FINISHING MATERIALS PREPARER, PLAN OF CARE DISCUSSED WITH PT, VERBALIZED UNDERSTANDING, CALL LIGHT WITHIN REACH, NEEDS ATTENDED.
[2017-10-01] MEDS: AZITHROMYCIN 250 MG TABLET PO SCH (15:06)
[2017-10-01 16:00] VITALS: BP 134/75
[2017-10-01] MEDS: ETHAMBUTOL HCL (400 MG) 400 MG TABLET PO SCH (17:32)
[2017-10-01] MEDS: CEFTRIAXONE 1 G in IV D5W 50 ML IV SCH (17:34)
--- NOTE | 2017-10-01 18:47 | NUR ---
CROWN IRONER NOTES PT IN BED, AWAKE, ALERT AND ORIENTED, WATCHING TV, DENIES PAIN, NOT IN DISTRESS, ON O2 AT 2LPM VIA NASAL CANULA, PM MEDS GIVEN, TOLERATING CURRENT DIET WELL, NOTED WITH GOOD APPETITE, COMPLIANT WITH NURSING CARE AND INTERVENTIONS, ALL NEEDS ATTENDED.
[2017-10-01 20:00] VITALS: BP 147/91
--- NOTE | 2017-10-01 20:00 | NUR ---
RN INITIAL NOTES: RECEIVED PT RESTING IN BED. PT IS ON 2LPM VIA NC. PT HAS IV ON R FOREARM #22G AND IS PATENT AND INTACT. CURRENTLY S/L. PT ON TELE BOX AND READING SHOWS ST 100-115. NO SOB NOTED. NO S/S OF DISTRESS. PT IS A/OX4. CALL LIGHT WITHIN PT'S REACH. BED KEPT IN LOW, LOCKED POSITION, AND SIDE RAILSX 2 UP. WILL CONTINUE TO MONITOR PT.
[2017-10-01] MEDS: TEMAZEPAM 15 MG CAPSULE PO PRN (21:31)
[2017-10-01] MEDS: PYRAZINAMIDE 500 MG TABLET PO SCH (21:31)
[2017-10-01] MEDS: RIFAMPIN 300 MG CAPSULE PO SCH (21:31)
[2017-10-01] MEDS: ISONIAZID (300 MG) 300 MG TABLET PO SCH (21:32)
[2017-10-01] MEDS: ENOXAPARIN SODIUM 30 MG/0.3 ML DISP.SYRIN SQ SCH (21:34)
[2017-10-02] VITALS: BP 139/84
[2017-10-02] MEDS: GUAIFENESIN/D-METHORPHAN HB 5 ML UDC PO PRN ×2 (01:31→05:10)
[2017-10-02 04:00] VITALS: BP 179/99
[2017-10-02] MEDS: HYDROCODONE/APAP 10/325MG 1 EA TABLET PO PRN (05:10)
--- NOTE | 2017-10-02 06:08 | NUR ---
RN CLOSING NOTES: ALL NEEDS WERE ATTENDED AND ANTICIPATED. PT ON 2LPM VIA NC AND IS TOLERATING WELL. PT IS ASLEEP AT THIS TIME. PT ON TELE BOX AND READING SHOWS ST 100-138. CALL LIGHT WITHIN PT'S REACH. BED KEPT IN LOW, LOCKED POSITION, AND SIDE RAILS X 2UP. TB PRECAUTIONS TAKEN. WILL ENDORSE TO AM NURSE FOR ERNESTINA.
[2017-10-02 08:00] VITALS: BP 117/69
[2017-10-02] MEDS: PANTOPRAZOLE 40 MG TABLET.DR PO SCH (08:08)
[2017-10-02] MEDS: FERROUS SULFATE (325 MG) 325 MG/TAB TABLET PO SCH (08:08)
[2017-10-02] MEDS: MEGESTROL ACETATE SUSP 400 MG/10 ML UDC PO SCH ×2 (08:08→16:33)
[2017-10-02] MEDS: MELOXICAM 7.5 MG TABLET PO SCH (08:08)
[2017-10-02] MEDS: ENSURE ENLIVE CHOC 237 ML CAN PO SCH ×2 (08:14→16:33)
[2017-10-02] MEDS ORDERED: IV NS 0.9% 500 ML IV ONE (08:30)
--- NOTE | 2017-10-02 08:30 | NUR ---
PT NOTED WITH ELEVATED HR 140'S-150'S. PER PM SHIFT, PAIN MEDICATION AND COUGH MEDICATION ALREADY GIVEN. PT C/O DIZZINESS WELL. ALLY PEREZ AWARE WITH NEW ORDER FOR NS 500CC BOLUS X1. CARRIED OUT. WILL CONTINUE TO MONITOR
[2017-10-02] MEDS ORDERED: methylPREDNISolone SOD SUCC 40 MG/ML VIAL IV SCH ×2 (09:00)
--- NOTE | 2017-10-02 10:30 | NUR ---
PT SEEN MY ALLY PEREZ. NEW ORDER RECEIVED FOR ATIVAN PRN. PT RESTING AT THIS TIME, HR 122. WILL CONTINUE TO MONITOR.
[2017-10-02 12:00] VITALS: BP 126/77
[2017-10-02] MEDS: LORAZEPAM INJ 2 MG/ML VIAL IV PRN (12:49)
--- NOTE | 2017-10-02 12:55 | NUR ---
PRN ATIVAN 0.25ML GIVEN FOR PT C/O FEELING ANXIOUS, ELEVATED HR. PRIOR TO ATIVAN, BP 126/77, HR 122. WILL CONTINUE TO MONITOR
--- NOTE | 2017-10-02 14:30 | NUR ---
PT RESTING AT THIS TIME, HR 102-105. ATIVAN EFFECTIVE
[2017-10-02] MEDS: AZITHROMYCIN 250 MG TABLET PO SCH (15:00)
[2017-10-02 16:00] VITALS: BP 136/82
[2017-10-02] MEDS: ETHAMBUTOL HCL (400 MG) 400 MG TABLET PO SCH (17:49)
[2017-10-02] MEDS: CEFTRIAXONE 1 G in IV D5W 50 ML IV SCH (17:56)
--- NOTE | 2017-10-02 19:00 | NUR ---
CORE MACHINE TENDER END NOTES: PT REMAINS IN BED, AWAKE AT THIS TIME. O2 VIA NC IN PLACE, SATURATING >95% AND NO SOB NOTED. PT DENIES PAIN OR DISCOMFORT AT THIS TIME. ALL MEDS GIVEN ORDERED. CONTINUE WITH ISOLATION PRECAUTIONS. ON TELE MONITOR ST, HR 99. BED IN LOW LOCKED POSITION, CALL LIGHT WITHIN REACH. WILL ENDORSE TO PM SHIFT FOR CONTINUITY OF CARE.
[2017-10-02 20:00] VITALS: BP 142/82
[2017-10-02] MEDS: PYRAZINAMIDE 500 MG TABLET PO SCH (21:30)
[2017-10-02] MEDS: RIFAMPIN 300 MG CAPSULE PO SCH (21:31)
[2017-10-02] MEDS: ISONIAZID (300 MG) 300 MG TABLET PO SCH (21:31)
[2017-10-02] MEDS: ENOXAPARIN SODIUM 30 MG/0.3 ML DISP.SYRIN SQ SCH (21:32)
[2017-10-02] MEDS: TEMAZEPAM 15 MG CAPSULE PO PRN (21:38)
[2017-10-03] VITALS: BP 134/84
[2017-10-03 04:00] VITALS: BP 145/93
[2017-10-03 06:26] LABS: EOSINOPHILS % (AUTO) 0.5 % (0.0-6.0); HEMATOCRIT 33 % (39-51); HEMOGLOBIN 10.6 g/dL (13.5-17.5); LYMPHOCYTES # (AUTO) 0.5 /CMM (0.8-4.8); LYMPHOCYTES % (AUTO) 3.1 % (20.0-44.0); MEAN CORPUSCULAR HEMOGLOBIN 29 PG (26.0-33.0); MEAN CORPUSCULAR HGB CONC 32 g/dl (31.0-36.0); MEAN CORPUSCULAR VOLUME 88 fL (80-96); MONOCYTES # (AUTO) 0.9 /CMM (0.1-1.30); MONOCYTES % (AUTO) 5.7 % (2.0-12.0); NEUTROPHILS % (AUTO) 90.7 % (43.0-81.0); PLATELET COUNT (AUTO) 377 /CMM (150-450); RDW COEFFICIENT OF VARIATION 20.7 (11.5-15.0); WHITE BLOOD COUNT (AUTO) 15.5 K/uL (4.3-11.0)
[2017-10-03] MEDS: PANTOPRAZOLE 40 MG TABLET.DR PO SCH (06:32)
[2017-10-03 06:55] LABS: CALCIUM, SERUM 7.9 mg/dL (8.5-10.1); CREATININE 0.5 mg/dL (0.6-1.3)
--- NOTE | 2017-10-03 07:05 | NUR ---
COMPUTER SYSTEM SPECIALIST OPENING NOTE RECEIVED BEDSIDE SBAR REPORT ON THE PATIENT. PATIENT IN NEGATIVE PRESSURE ROOM, AIRBORNE PRECAUTIONS IN PLACE. PATIENT IS A/O X4, AWAKE AND RESPONSIVE IN BED. BED IS LOCKED IN LOWEST POSITION, SIDE RAILS UP X3, CALL LIGHT WITHIN REACH. EDUCATED THE PATIENT TO CALL FOR ASSISTANCE USING THE CALL LIGHT. PATIENT VERBALIZED UNDERSTANDING. PATIENT IS AMBULATORY AND ORIENTED TO OWN ABILITIES. DENIES PAIN/DISCOMFORT AT THIS TIME. EXTERNAL MONITOR READING ST 124BPM. PATIENT PRESENTS SOON AFTER ALBUTEROL TREATMENT. ALL NEEDS ARE MET. WILL CONTINUE TO ASSESS/MONITOR THROUGHOUT THE SHIFT.
--- NOTE | 2017-10-03 07:30 | NUR ---
a/a/o times 4, c/o of being sob, breathing tx requested.
[2017-10-03 08:00] VITALS: BP 147/86
[2017-10-03] MEDS: MEGESTROL ACETATE SUSP 400 MG/10 ML UDC PO SCH ×2 (09:07→17:18)
[2017-10-03] MEDS: ENSURE ENLIVE CHOC 237 ML CAN PO SCH ×2 (09:07→17:29)
[2017-10-03] MEDS: MELOXICAM 7.5 MG TABLET PO SCH (09:07)
[2017-10-03] MEDS: FERROUS SULFATE (325 MG) 325 MG/TAB TABLET PO SCH (09:07)
[2017-10-03] MEDS: HYDROCODONE/APAP 10/325MG 1 EA TABLET PO PRN ×2 (09:08→09:09)
[2017-10-03] MEDS: LORAZEPAM INJ 2 MG/ML VIAL IV PRN (09:08)
--- NOTE | 2017-10-03 09:08 | NUR ---
PATIENT COMPLAINED OF ANXIETY CAUSING LABORED, SHALLOW RESPIRATIONS. ATIVAN ADMINISTERED ORDERED
--- NOTE | 2017-10-03 09:10 | NUR ---
DOCUMENTED PASSED DUE MEDS FROM PREVIOUS SHIFT NON-ADMINISTERED TO RID OF RED PASSED DUE REMINDER
[2017-10-03 12:00] VITALS: BP 119/76
[2017-10-03] MEDS: AZITHROMYCIN 250 MG TABLET PO SCH (15:49)
[2017-10-03 16:00] VITALS: BP 131/84
[2017-10-03] MEDS: ETHAMBUTOL HCL (400 MG) 400 MG TABLET PO SCH (17:18)
[2017-10-03] MEDS: CEFTRIAXONE 1 G in IV D5W 50 ML IV SCH (17:30)
--- NOTE | 2017-10-03 18:49 | NUR ---
FUEL SYSTEM MAINTENANCE SUPERVISOR CLOSING NOTE RECEIVED BEDSIDE SBAR REPORT ON THE PATIENT. PATIENT IN NEGATIVE PRESSURE ROOM, AIRBORNE PRECAUTIONS IN PLACE. PATIENT IS A/O X4, AWAKE AND RESPONSIVE IN BED. BED IS LOCKED IN LOWEST POSITION, SIDE RAILS UP X3, CALL LIGHT WITHIN REACH. EDUCATED THE PATIENT TO CALL FOR ASSISTANCE USING THE CALL LIGHT. PATIENT VERBALIZED UNDERSTANDING. PATIENT IS AMBULATORY AND ORIENTED TO OWN ABILITIES. DENIES PAIN/DISCOMFORT AT THIS TIME. PATIENT PRESENTS SOON AFTER ALBUTEROL TREATMENT. ALL NEEDS ARE MET. WILL ENDORSE TO THE ROAD MACHINE RUNNER NURSE FOR ERNESTINA.
--- NOTE | 2017-10-03 19:40 | NUR ---
ABSORBER OPERATOR INITIAL NOTES: RECEIVED PATIENT RESTING IN BED, ALERT AND ORIENTED, ABKE TO COMMUNICATE CONCERNS AND NEEDS, BREATHING EVEN AND UNLABORED, NO SOB/ACUTE DISTRESS NOTED AT THIS TIME, RIGHT FOREARM #22G PATENT AND INTACT, NO IVF AT THIS TIME, . NO S/S OF DISTRESS, CALL LIGHT WITHIN REACH, BED KEPT IN LOW, LOCKED POSITION, WILL CONTINUE TO MONITOR CLOSELY.
[2017-10-03 20:00] VITALS: BP 146/82
[2017-10-03] MEDS: PYRAZINAMIDE 500 MG TABLET PO SCH (21:19)
[2017-10-03] MEDS: ISONIAZID (300 MG) 300 MG TABLET PO SCH (21:19)
[2017-10-03] MEDS: RIFAMPIN 300 MG CAPSULE PO SCH (21:20)
[2017-10-03] MEDS: ENOXAPARIN SODIUM 30 MG/0.3 ML DISP.SYRIN SQ SCH (21:27)
[2017-10-03] MEDS: IPRATROPIUM NEB FS 0.5 MG/2.5 ML AMPUL.NEB NEB PRN (23:50)
[2017-10-03] MEDS: ALBUTEROL FS 2.5 MG/0.5 ML VIAL.NEB NEB PRN (23:50)
[2017-10-04] VITALS: BP 137/85
[2017-10-04 04:00] VITALS: BP 140/59
--- NOTE | 2017-10-04 06:23 | NUR ---
MOLDER OPERATOR CLOSING NOTES: PATIENT SLEEPING IN BED AT THIS TIME ABLE TO COMMUNICATE CONCERNS AND NEEDS, BREATHING EVEN AND UNLABORED, NO SOB/ACUTE DISTRESS NOTED AT THIS TIME, RIGHT FOREARM #22G PATENT AND INTACT, NO IVF AT THIS TIME, HE WILL HAVE CT SCAN ABDOMEN/PELVIS WITH CONTRAST, NPO SINCE MIDNIGHT, TEST EXPLAINED TO PATIENT AND VERBALIZED UNDERSTANDING, CALL LIGHT WITHIN REACH, BED LOCKED AND IN LOW POSITION, WILL ENDORSE CONTINUITY OF CARE TO ONCOMING NURSE.
--- NOTE | 2017-10-04 07:30 | NUR ---
PLASTIC DOLLS MOLD FILLER INITIAL NOTES: RECEIVED PATIENT RESTING IN BED, ALERT AND ORIENTED, ABLE TO COMMUNICATE NEEDS CONCERNS, BREATHING EVEN AND UNLABORED, NO SOB/ACUTE DISTRESS NOTED AT THIS TIME, RIGHT FOREARM #22G PATENT AND INTACT, NO IVF AT THIS TIME, NO S/S OF DISTRESS, WILL HAVE DINNER AT THIS TIME, ENCOURAGED TO INTAKE AT LEAS 70% OF MEAL, CALL LIGHT WITHIN REACH, BED KEPT IN LOW, LOCKED POSITION, WILL CONTINUE TO MONITOR CLOSELY.
--- NOTE | 2017-10-04 07:30 | NUR ---
INITIAL NOTES: PATIENT SLEEPING IN BED EASILY AROUSIABLE AND ABLE TO COMMUNICATE CONCERNS AND NEEDS.pT sr ON MONITOR WITH BREATHING EVEN AND UNLABORED, NO SOB/ACUTE DISTRESS NOTED AT THIS TIME, RIGHT FOREARM #22G PATENT AND INTACT, NO IVF AT THIS TIME, PLAN FOR TODAY WILL HAVE CT SCAN OF ABDOMEN/PELVIS WITH CONTRAST CONSENT IN CELI. PT HAS BEEN NPO SINCE MIDNIGHT, TEST EXPLAINED TO PATIENT AND VERBALIZED UNDERSTANDING, CALL LIGHT WITHIN REACH, BED LOCKED AND IN LOW POSITION WILL CONTINUE TO MONITOR.
[2017-10-04] MEDS: ENSURE ENLIVE CHOC 237 ML CAN PO SCH ×2 (07:58→17:06)
[2017-10-04 08:00] VITALS: BP 146/85
[2017-10-04] MEDS: FERROUS SULFATE (325 MG) 325 MG/TAB TABLET PO SCH (08:09)
[2017-10-04] MEDS: MELOXICAM 7.5 MG TABLET PO SCH (08:09)
[2017-10-04] MEDS: MEGESTROL ACETATE SUSP 400 MG/10 ML UDC PO SCH ×2 (08:09→17:06)
[2017-10-04] MEDS: PANTOPRAZOLE 40 MG TABLET.DR PO SCH (08:09)
[2017-10-04] MEDS: ACETYLCYSTEINE 20% ORAL SOLN 6,000 MG/30 ML VIAL PO SCH ×2 (09:00→17:00)
[2017-10-04 12:00] VITALS: BP 141/85
--- NOTE | 2017-10-04 12:57 | NUR ---
SPOKE WITH MD Pearson THIS AM AND SHE WANTS TO HOLD OFF CT SCAN. ALSO TEXT MD GUTIERREZ WITH QUIANA REQUEST.
[2017-10-04 16:00] VITALS: BP 145/84
[2017-10-04] MEDS: AZITHROMYCIN 250 MG TABLET PO SCH (16:06)
--- NOTE | 2017-10-04 16:30 | NUR ---
PT NOT HAVING SCAN WITH CONTRAST NO MUCOMYST GIVEN
[2017-10-04] MEDS: CEFTRIAXONE 1 G in IV D5W 50 ML IV SCH (17:35)
[2017-10-04] MEDS: ETHAMBUTOL HCL (400 MG) 400 MG TABLET PO SCH (17:35)
--- NOTE | 2017-10-04 18:47 | NUR ---
CLOSING BEDSIDE SBAR REPORT ON THE PATIENT GIVEN. PATIENT IN NEGATIVE PRESSURE ROOM, AIRBORNE PRECAUTIONS IN PLACE. PATIENT IS A/O X4, AWAKE AND RESPONSIVE IN BED. BED IS LOCKED IN LOWEST POSITION, SIDE RAILS UP X3, CALL LIGHT WITHIN REACH. EDUCATED THE PATIENT TO CALL FOR ASSISTANCE USING THE CALL LIGHT. PATIENT VERBALIZED UNDERSTANDING. PATIENT IS AMBULATORY AND ORIENTED TO OWN ABILITIES. DENIES PAIN/DISCOMFORT AT THIS TIME. ALL NEEDS ARE MET. WILL ENDORSE TO THE CHECKER STOCKER RN .
[2017-10-04 20:00] VITALS: BP 135/82
[2017-10-04] MEDS: RIFAMPIN 300 MG CAPSULE PO SCH (21:32)
[2017-10-04] MEDS: PYRAZINAMIDE 500 MG TABLET PO SCH (21:33)
[2017-10-04] MEDS: ISONIAZID (300 MG) 300 MG TABLET PO SCH (21:33)
[2017-10-04] MEDS: ENOXAPARIN SODIUM 30 MG/0.3 ML DISP.SYRIN SQ SCH (21:34)
[2017-10-05] VITALS: BP 140/84
[2017-10-05 04:00] VITALS: BP 138/85
--- NOTE | 2017-10-05 06:50 | NUR ---
C D REACTOR OPERATOR CLOSING NOTES, PATIENT SLEEPING IN BED AT THIS TIME ABLE TO COMMUNICATE CONCERNS AND NEEDS, BREATHING EVEN AND UNLABORED, NO SOB/ACUTE DISTRESS NOTED AT THIS TIME, RIGHT FOREARM #22G PATENT AND INTACT, NO IVF AT THIS TIME, NO SIGNIFICANT CHANGE IN CONDITION DURING BLANKET WINDER HELPER, CALL LIGHT WITHIN REACH, BED LOCKED AND IN LOW POSITION, WILL ENDORSE CONTINUITY OF CARE TO ONCOMING NURSE.
[2017-10-05 07:13] LABS: EOSINOPHILS % (AUTO) 0.7 % (0.0-6.0); HEMATOCRIT 30 % (39-51); HEMOGLOBIN 9.8 g/dL (13.5-17.5); LYMPHOCYTES # (AUTO) 0.5 /CMM (0.8-4.8); LYMPHOCYTES % (AUTO) 5.3 % (20.0-44.0); MEAN CORPUSCULAR HEMOGLOBIN 30 PG (26.0-33.0); MEAN CORPUSCULAR HGB CONC 33 g/dl (31.0-36.0); MEAN CORPUSCULAR VOLUME 89 fL (80-96); MONOCYTES # (AUTO) 0.6 /CMM (0.1-1.30); MONOCYTES % (AUTO) 6.8 % (2.0-12.0); NEUTROPHILS # (AUTO) 7.7 /CMM (1.8-8.9); NEUTROPHILS % (AUTO) 87.2 % (43.0-81.0); PLATELET COUNT (AUTO) 373 /CMM (150-450); RDW COEFFICIENT OF VARIATION 20.8 (11.5-15.0); RED BLOOD CELL COUNT(AUTO) 3.34 MIL/uL (4.5-6.0); WHITE BLOOD COUNT (AUTO) 8.8 K/uL (4.3-11.0)
[2017-10-05 07:27] LABS: ALBUMIN 1.5 g/dL (3.4-5.0); BILIRUBIN,TOTAL 0.3 mg/dL (0.2-1.0); CALCIUM, SERUM 7.6 mg/dL (8.5-10.1); CREATININE 0.5 mg/dL (0.6-1.3); MAGNESIUM 1.9 mg/dL (1.8-2.4); PHOSPHORUS 2.6 mg/dL (2.5-4.9); POTASSIUM 3.8 mmol/L (3.5-5.1); TOTAL PROTEIN, SERUM 5.4 g/dL (6.4-8.2)
[2017-10-05 08:00] VITALS: BP 138/80
[2017-10-05] MEDS: ENSURE ENLIVE CHOC 237 ML CAN PO SCH ×2 (08:27→17:00)
[2017-10-05] MEDS: MEGESTROL ACETATE SUSP 400 MG/10 ML UDC PO SCH ×2 (08:27→18:10)
[2017-10-05] MEDS: FERROUS SULFATE (325 MG) 325 MG/TAB TABLET PO SCH (08:27)
[2017-10-05] MEDS: MELOXICAM 7.5 MG TABLET PO SCH (08:27)
[2017-10-05] MEDS: PANTOPRAZOLE 40 MG TABLET.DR PO SCH (08:27)
[2017-10-05] MEDS: ACETYLCYSTEINE 20% ORAL SOLN 6,000 MG/30 ML VIAL PO SCH ×2 (08:27→20:28)
[2017-10-05 12:00] VITALS: BP 132/83
[2017-10-05] MEDS: AZITHROMYCIN 250 MG TABLET PO SCH (15:02)
[2017-10-05 16:00] VITALS: BP 143/87
[2017-10-05] MEDS: ETHAMBUTOL HCL (400 MG) 400 MG TABLET PO SCH (18:10)
[2017-10-05] MEDS: CEFTRIAXONE 1 G in IV D5W 50 ML IV SCH (18:11)
--- NOTE | 2017-10-05 18:55 | NUR ---
NOTED PT WITH INCREASING SOB WITH EXERTION. INCREASED 02 TO 4L NC AND PT FELT MORE COMFORTABLE, NOTIFIED ID CHIP APPLYING MACHINE TENDER. PT ENCOURAGED TO EAT MORE AND STATED THAT HE IS TRYING, PER DR GUTIERREZ, ONC - ENCOURAGE PT TO DRINK MORE ENSURE. ISSUES WITH MTB PCR AND PCR DISCUSSED WITH ID CHIP APPLYING MACHINE TENDER AND STATED SHE WILL LOOK INTO THE RESULTS. NOTIFIED KRYSTAL THURMAN WELL AND DR ARAYA. PT HAS NO C/O PAIN. WILL CONT TO MONITOR.
[2017-10-05 20:00] VITALS: BP_SYST 114; BP_SYST 145; BP_DIAS 60; BP_DIAS 81
--- NOTE | 2017-10-05 20:05 | NUR ---
RN NOTES RECEIVED PATIENT AWAKE, LYING COMFORTABLY IN BED WATCHING TV. NOTED WITH SHORTNESS OF BREATH WHEN TALKING, ALERT AND ORIENTED. ABLE TO VERBALIZE NEEDS. AMBULATORY WITH ASSIST. VITAL SIGNS WNL. NEEDS ATTENDED. KEPT CLEAN AND DRY. WILL CONTINUE TO MONITOR.
[2017-10-05] MEDS: PYRAZINAMIDE 500 MG TABLET PO SCH (21:26)
[2017-10-05] MEDS: ISONIAZID 100 MG TABLET PO SCH (21:27)
[2017-10-05] MEDS: ENOXAPARIN SODIUM 30 MG/0.3 ML DISP.SYRIN SQ SCH (21:29)
[2017-10-05] MEDS ORDERED: RIFAMPIN 300 MG CAPSULE PO SCH (22:00)
[2017-10-06] VITALS: BP_SYST 114; BP_SYST 150; BP_DIAS 60; BP_DIAS 81
[2017-10-06 04:00] VITALS: BP 150/81
--- NOTE | 2017-10-06 06:15 | NUR ---
RN CLOSING NOTES NO SIGNIFICANT CHANGE OF CONDITION. VITAL SIGNS WNL. BREATHING EVEN AND UNLABORED. NO COMPLAINT OF PAIN OR DISCOMFORT. RESULT FOR MAC PCR (+) REPORTED BY LAB. WILL ENDORSE TO AM SHIFT FOR CONTINUITY OF CARE.
--- NOTE | 2017-10-06 07:20 | NUR ---
RN OPENING NOTES RECEIVED PATIENT AWAKE, LYING COMFORTABLY IN BED WATCHING TV. A/OX4, ABLE TO MAKE NEEDS KNOWN. ON 2LPM OXYGEN, TOLERATING WELL AT 98% SATURATION. NO ACUTE DISTRESS. NOTED WITH SHORTNESS OF BREATH WHEN TALKING. IV SITE INTACT AND PATENT. KEPT PATIENT SAFE AND COMFORTABLE. BED IN LOW/LOCKED POSITION, CALL LIGHT IN REACH. WILL CONTINUE TO MONITOR ACCORDINGLY.
[2017-10-06 07:24] LABS: BASOPHILS % (AUTO) 0.1 % (0.0-2.0); EOSINOPHILS % (AUTO) 0.6 % (0.0-6.0); HEMATOCRIT 31 % (39-51); HEMOGLOBIN 10.1 g/dL (13.5-17.5); LYMPHOCYTES # (AUTO) 0.5 /CMM (0.8-4.8); LYMPHOCYTES % (AUTO) 5.1 % (20.0-44.0); MEAN CORPUSCULAR HEMOGLOBIN 29 PG (26.0-33.0); MEAN CORPUSCULAR HGB CONC 33 g/dl (31.0-36.0); MEAN CORPUSCULAR VOLUME 90 fL (80-96); MONOCYTES # (AUTO) 0.5 /CMM (0.1-1.30); MONOCYTES % (AUTO) 5.7 % (2.0-12.0); NEUTROPHILS % (AUTO) 88.5 % (43.0-81.0); PLATELET COUNT (AUTO) 348 /CMM (150-450); RDW COEFFICIENT OF VARIATION 20.7 (11.5-15.0); RED BLOOD CELL COUNT(AUTO) 3.45 MIL/uL (4.5-6.0); WHITE BLOOD COUNT (AUTO) 9.1 K/uL (4.3-11.0)
[2017-10-06 07:29] LABS: CALCIUM, SERUM 7.6 mg/dL (8.5-10.1); CREATININE 0.5 mg/dL (0.6-1.3); MAGNESIUM 1.9 mg/dL (1.8-2.4); PHOSPHORUS 2.4 mg/dL (2.5-4.9); POTASSIUM 4.3 mmol/L (3.5-5.1)
[2017-10-06 08:00] VITALS: BP 138/87
[2017-10-06] MEDS: ENSURE ENLIVE CHOC 237 ML CAN PO SCH ×2 (08:29→16:30)
[2017-10-06] MEDS: MELOXICAM 7.5 MG TABLET PO SCH (08:30)
[2017-10-06] MEDS: MEGESTROL ACETATE SUSP 400 MG/10 ML UDC PO SCH ×2 (08:30→16:27)
[2017-10-06] MEDS: PANTOPRAZOLE 40 MG TABLET.DR PO SCH (08:30)
[2017-10-06] MEDS: FERROUS SULFATE (325 MG) 325 MG/TAB TABLET PO SCH (08:30)
[2017-10-06] MEDS ORDERED: RIFAMPIN 300 MG CAPSULE PO SCH (09:00)
[2017-10-06 12:00] VITALS: BP 138/91
--- NOTE | 2017-10-06 15:29 | NUR ---
RN NOTES PATIENT NEEDS SPUTUM SPECIMEN FOR AF[employer]. PER RT,YOLY PATIENT REFUSED TO BE SUCTIONED.
[2017-10-06] MEDS: AZITHROMYCIN 250 MG TABLET PO SCH (15:36)
--- NOTE | 2017-10-06 15:48 | NUR ---
RN NOTES PATIENT ABLE TO COUGH OUT SPUTUM SPECIMEN FOR AF[employer], COLLECTED AND CALLED LAB FOR MARKETING CLERK. Addendum: 10/06/17 at 1729 by KIERRA DAVENPORT Spoke with Kd from Lab for specimen picking machine operator.
[2017-10-06 16:00] VITALS: BP 133/76
[2017-10-06] MEDS: PYRIDOXINE HCL 50 MG TABLET PO SCH (16:27)
[2017-10-06] MEDS: ETHAMBUTOL HCL (400 MG) 400 MG TABLET PO SCH (17:09)
--- NOTE | 2017-10-06 19:07 | NUR ---
RN CLOSING NOTES PATIENT IN STABLE CONDITION. ALL NEEDS ATTENDED AND PROVIDED. KEPT PATIENT SAFE AND COMFORTABLE. BED IN LOW/LOCKED POSITION, SIDERAILS UPX2, HOB ELEVATED, CALL LIGHT IN REACH. ENDORSED TO NIGHT RN FOR ERNESTINA.
--- NOTE | 2017-10-06 19:41 | NUR ---
RN TEL INITIAL NOTES RECEIVED PATIENT AWAKE IN BED A/OX4, ABLE TO MAKE NEEDS KNOWN. ON 2LPM OXYGEN, TOLERATING WELL AT 98% SATURATION. NO ACUTE DISTRESS, OR C/O PAIN AT THIS TIME. IV SITE INTACT AND PATENT. KEPT PATIENT, LAB CALLED REGARDING AFB SPUTUM COLLECTION NOT ENOUGH, 5ML NEEDED FOR CX. WILL TRY TO COLLECT SOON POSSIBLE. BED IN LOW/LOCKED POSITION, CALL LIGHT IN REACH. WILL CONTINUE TO MONITOR ACCORDINGLY.
[2017-10-06 20:00] VITALS: BP 140/79
[2017-10-06] MEDS: ISONIAZID 100 MG TABLET PO SCH (21:57)
[2017-10-06] MEDS: RIFAMPIN 150 MG CAPSULE PO SCH (21:57)
[2017-10-06] MEDS: PYRAZINAMIDE 500 MG TABLET PO SCH (21:58)
[2017-10-06] MEDS: ENOXAPARIN SODIUM 30 MG/0.3 ML DISP.SYRIN SQ SCH (22:08)
[2017-10-07] VITALS: BP 143/80
[2017-10-07] MEDS: LORAZEPAM INJ 2 MG/ML VIAL IV PRN (00:13)
[2017-10-07 04:00] VITALS: BP 131/74
--- NOTE | 2017-10-07 06:17 | NUR ---
RN CLOSING NOTE ALL PT NEEDS MET, RESUFUSED TO BE ASSISTED WITH AM ADL'S, AFB SPUTUM CX COLLECTED, WILL ENDORSE TO AM SHIFT TO F/U.
[2017-10-07 06:40] LABS: BASOPHILS % (AUTO) 0.3 % (0.0-2.0); EOSINOPHILS % (AUTO) 0.7 % (0.0-6.0); HEMATOCRIT 30 % (39-51); HEMOGLOBIN 9.9 g/dL (13.5-17.5); LYMPHOCYTES # (AUTO) 0.4 /CMM (0.8-4.8); LYMPHOCYTES % (AUTO) 5.4 % (20.0-44.0); MEAN CORPUSCULAR HEMOGLOBIN 29 PG (26.0-33.0); MEAN CORPUSCULAR HGB CONC 33 g/dl (31.0-36.0); MEAN CORPUSCULAR VOLUME 90 fL (80-96); MONOCYTES # (AUTO) 0.6 /CMM (0.1-1.30); MONOCYTES % (AUTO) 7.6 % (2.0-12.0); NEUTROPHILS # (AUTO) 6.6 /CMM (1.8-8.9); PLATELET COUNT (AUTO) 356 /CMM (150-450); RDW COEFFICIENT OF VARIATION 19.8 (11.5-15.0); RED BLOOD CELL COUNT(AUTO) 3.38 MIL/uL (4.5-6.0); WHITE BLOOD COUNT (AUTO) 7.7 K/uL (4.3-11.0)
[2017-10-07 06:44] LABS: CALCIUM, SERUM 7.4 mg/dL (8.5-10.1); CREATININE 0.5 mg/dL (0.6-1.3); MAGNESIUM 1.9 mg/dL (1.8-2.4); PHOSPHORUS 2.3 mg/dL (2.5-4.9); POTASSIUM 3.8 mmol/L (3.5-5.1)
[2017-10-07 08:00] VITALS: BP 151/57
[2017-10-07] MEDS: PYRIDOXINE HCL 50 MG TABLET PO SCH (08:34)
[2017-10-07] MEDS: MEGESTROL ACETATE SUSP 400 MG/10 ML UDC PO SCH ×3 (08:34→16:14)
[2017-10-07] MEDS: MELOXICAM 7.5 MG TABLET PO SCH (08:34)
[2017-10-07] MEDS: FERROUS SULFATE (325 MG) 325 MG/TAB TABLET PO SCH (08:34)
[2017-10-07] MEDS: PANTOPRAZOLE 40 MG TABLET.DR PO SCH (08:34)
[2017-10-07] MEDS: ENSURE ENLIVE CHOC 237 ML CAN PO SCH ×2 (08:35→16:15)
[2017-10-07] MEDS: ALBUTEROL FS 2.5 MG/0.5 ML VIAL.NEB NEB PRN ×2 (09:06→19:09)
[2017-10-07] MEDS: IPRATROPIUM NEB FS 0.5 MG/2.5 ML AMPUL.NEB NEB PRN ×2 (09:06→19:09)
[2017-10-07 12:00] VITALS: BP 135/76
[2017-10-07] MEDS ORDERED: Sodium Phosphate 15 MMOL in IV D5W 250 ML IV ONE (13:00)
[2017-10-07 16:00] VITALS: BP_SYST 132; BP_SYST 138; BP_DIAS 65; BP_DIAS 84
[2017-10-07] MEDS ORDERED: K PHOS NEUTRAL 250 MG TABLET PO ONE (17:00)
[2017-10-07] MEDS: ETHAMBUTOL HCL (400 MG) 400 MG TABLET PO SCH (17:28)
[2017-10-07 20:00] VITALS: BP 154/79
--- NOTE | 2017-10-07 20:11 | NUR ---
RN TEL INITIAL NOTES RECEIVED PATIENT AWAKE IN BED A/OX4, ABLE TO MAKE NEEDS KNOWN. ON 2LPM OXYGEN, TOLERATING WELL AT 98% SATURATION. NO ACUTE DISTRESS, OR C/O PAIN AT THIS TIME. IV SITE INTACT AND PATENT. KEPT PATIENT, AFB SPUTUM COLLECTION X1 MORE, 5ML NEEDED FOR CX. WILL TRY TO COLLECT SOON POSSIBLE. BED IN LOW/LOCKED POSITION, CALL LIGHT IN REACH. WILL CONTINUE TO MONITOR ACCORDINGLY.
[2017-10-07] MEDS: ENOXAPARIN SODIUM 30 MG/0.3 ML DISP.SYRIN SQ SCH (21:00)
[2017-10-07] MEDS: ISONIAZID 100 MG TABLET PO SCH (22:21)
[2017-10-07] MEDS: PYRAZINAMIDE 500 MG TABLET PO SCH (22:21)
[2017-10-07] MEDS: RIFAMPIN 150 MG CAPSULE PO SCH (22:21)
[2017-10-08] VITALS (7 sets, daily range): BP systolic 126–158; BP diastolic 73–82
--- NOTE | 2017-10-08 06:00 | NUR ---
RN CLOSING NOTE PT NOT ABLE TO EXPECTORATE ENOUGH SPUTUM FOR AF[employer] CX AND REFUSES FOR RT TO ASSIST W/SUCTION TO OBTAIN CX, WILL ENDORSE TO AM SHIFT RN TO F/U.
[2017-10-08 07:06] LABS: BASOPHILS % (AUTO) 0.1 % (0.0-2.0); EOSINOPHILS % (AUTO) 0.9 % (0.0-6.0); HEMATOCRIT 28 % (39-51); HEMOGLOBIN 9.2 g/dL (13.5-17.5); LYMPHOCYTES # (AUTO) 0.4 /CMM (0.8-4.8); LYMPHOCYTES % (AUTO) 5.9 % (20.0-44.0); MEAN CORPUSCULAR HEMOGLOBIN 29 PG (26.0-33.0); MEAN CORPUSCULAR HGB CONC 32 g/dl (31.0-36.0); MEAN CORPUSCULAR VOLUME 90 fL (80-96); MONOCYTES # (AUTO) 0.6 /CMM (0.1-1.30); MONOCYTES % (AUTO) 8.1 % (2.0-12.0); NEUTROPHILS # (AUTO) 6.1 /CMM (1.8-8.9); PLATELET COUNT (AUTO) 403 /CMM (150-450); RDW COEFFICIENT OF VARIATION 20.2 (11.5-15.0); RED BLOOD CELL COUNT(AUTO) 3.13 MIL/uL (4.5-6.0); WHITE BLOOD COUNT (AUTO) 7.2 K/uL (4.3-11.0)
[2017-10-08 07:19] LABS: CALCIUM, SERUM 7.2 mg/dL (8.5-10.1); CREATININE 0.5 mg/dL (0.6-1.3); MAGNESIUM 1.8 mg/dL (1.8-2.4); PHOSPHORUS 2.3 mg/dL (2.5-4.9); POTASSIUM 3.4 mmol/L (3.5-5.1)
[2017-10-08] MEDS: ALBUTEROL FS 2.5 MG/0.5 ML VIAL.NEB NEB PRN ×2 (08:10→20:42)
[2017-10-08] MEDS: IPRATROPIUM NEB FS 0.5 MG/2.5 ML AMPUL.NEB NEB PRN ×2 (08:10→20:42)
[2017-10-08] MEDS: MEGESTROL ACETATE SUSP 400 MG/10 ML UDC PO SCH ×2 (09:00→17:09)
[2017-10-08] MEDS: PYRIDOXINE HCL 50 MG TABLET PO SCH (09:01)
[2017-10-08] MEDS: FERROUS SULFATE (325 MG) 325 MG/TAB TABLET PO SCH (09:01)
[2017-10-08] MEDS: ENSURE ENLIVE CHOC 237 ML CAN PO SCH ×2 (09:01→17:00)
[2017-10-08] MEDS: PANTOPRAZOLE 40 MG TABLET.DR PO SCH (09:01)
[2017-10-08] MEDS: MELOXICAM 7.5 MG TABLET PO SCH (09:01)
[2017-10-08] MEDS: POTASSIUM CHLORIDE 20 MEQ POWDER PACKET PO SCH ×2 (11:49→12:30)
[2017-10-08] MEDS ORDERED: K PHOS NEUTRAL 250 MG TABLET PO ONE (15:30)
[2017-10-08] MEDS: GUAIFENESIN/D-METHORPHAN HB 5 ML UDC PO PRN (17:09)
[2017-10-08] MEDS: ETHAMBUTOL HCL (400 MG) 400 MG TABLET PO SCH (17:09)
--- NOTE | 2017-10-08 20:22 | NUR ---
RN TEL INITIAL NOTES RECEIVED PATIENT AWAKE IN BED A/OX4, ABLE TO MAKE NEEDS KNOWN. ON 2LPM OXYGEN, TOLERATING WELL AT 98% SATURATION. NO ACUTE DISTRESS, OR C/O PAIN AT THIS TIME. IV SITE INTACT AND PATENT. KEPT PATIENT. BED IN LOW/LOCKED POSITION, CALL LIGHT IN REACH. WILL CONTINUE TO MONITOR ACCORDINGLY.
[2017-10-08] MEDS: PYRAZINAMIDE 500 MG TABLET PO SCH (21:36)
[2017-10-08] MEDS: ISONIAZID 100 MG TABLET PO SCH (21:36)
[2017-10-08] MEDS: RIFAMPIN 150 MG CAPSULE PO SCH (21:36)
[2017-10-08] MEDS: ENOXAPARIN SODIUM 30 MG/0.3 ML DISP.SYRIN SQ SCH (21:40)
[2017-10-09] VITALS: BP 135/88
[2017-10-09] MEDS: HYDROCODONE BIT/HOMATROPINE 5 ML UDC PO PRN ×2 (00:29→20:36)
[2017-10-09 04:00] VITALS: BP 143/71
--- NOTE | 2017-10-09 06:14 | NUR ---
RN TEL CLOSING NOTES ENDORSED PATIENT AWAKE IN BED A/OX4, ABLE TO MAKE NEEDS KNOWN. ON 2LPM OXYGEN, TOLERATING WELL AT 98% SATURATION. NO ACUTE DISTRESS, OR C/O PAIN AT THIS TIME. IV SITE INTACT AND PATENT. KEPT PATIENT. BED IN LOW/LOCKED POSITION, CALL LIGHT IN REACH. WILL CONTINUE TO MONITOR ACCORDINGLY.
[2017-10-09 08:00] VITALS: BP 134/78
[2017-10-09 08:26] LABS: CALCIUM, SERUM 7.6 mg/dL (8.5-10.1); CREATININE 0.6 mg/dL (0.6-1.3); PHOSPHORUS 2.4 mg/dL (2.5-4.9); POTASSIUM 3.4 mmol/L (3.5-5.1)
[2017-10-09] MEDS: MEGESTROL ACETATE SUSP 400 MG/10 ML UDC PO SCH ×2 (08:43→17:16)
[2017-10-09] MEDS: PYRIDOXINE HCL 50 MG TABLET PO SCH (08:43)
[2017-10-09] MEDS: PANTOPRAZOLE 40 MG TABLET.DR PO SCH (08:44)
[2017-10-09] MEDS: MELOXICAM 7.5 MG TABLET PO SCH (08:44)
[2017-10-09] MEDS: FERROUS SULFATE (325 MG) 325 MG/TAB TABLET PO SCH (08:44)
[2017-10-09] MEDS: ENSURE ENLIVE CHOC 237 ML CAN PO SCH ×2 (08:59→17:24)
--- NOTE | 2017-10-09 09:30 | NUR ---
RN OPENING NOTES RECEIVED PATIENT ON AIRBORNE ISOLATION,AWAKE, LYING COMFORTABLY IN BED WATCHING TV. A/OX4, ABLE TO MAKE NEEDS KNOWN. ON 3Lpm OXYGEN, TOLERATING WELL AT 100% SATURATION, ST ON CONTAINER MAKER WITH HR OF 120. NO ACUTE DISTRESS. NOTED WITH SHORTNESS OF BREATH WHEN TALKING. RIGHT HAND G20 IV SITE INTACT AND PATIENT, BED IN LOW/LOCKED POSITION, CALL LIGHT IN REACH. WILL CONTINUE TO MONITOR ACCORDINGLY.
[2017-10-09] MEDS: POTASSIUM CHLORIDE 20 MEQ POWDER PACKET PO SCH ×2 (11:27→12:24)
[2017-10-09 12:00] VITALS: BP 130/83
[2017-10-09] MEDS ORDERED: K PHOS NEUTRAL 250 MG TABLET PO ONE (13:30)
[2017-10-09 16:00] VITALS: BP 139/82
[2017-10-09] MEDS: ETHAMBUTOL HCL (400 MG) 400 MG TABLET PO SCH (17:17)
[2017-10-09 20:00] VITALS: BP 138/80
[2017-10-09] MEDS: TEMAZEPAM 15 MG CAPSULE PO PRN (20:37)
[2017-10-09] MEDS: PYRAZINAMIDE 500 MG TABLET PO SCH (20:37)
[2017-10-09] MEDS: ISONIAZID 100 MG TABLET PO SCH (20:38)
[2017-10-09] MEDS: RIFAMPIN 150 MG CAPSULE PO SCH (20:38)
[2017-10-09] MEDS: ENOXAPARIN SODIUM 30 MG/0.3 ML DISP.SYRIN SQ SCH (20:45)
[2017-10-10] VITALS (7 sets, daily range): BP systolic 132–150; BP diastolic 79–95
[2017-10-10] MEDS: HYDROCODONE BIT/HOMATROPINE 5 ML UDC PO PRN (03:35)
[2017-10-10] MEDS: GUAIFENESIN/D-METHORPHAN HB 5 ML UDC PO PRN ×3 (05:43→21:47)
--- NOTE | 2017-10-10 06:55 | NUR ---
pt sleeping well overnight, had 3 doses of cough medication, productive white frothy phlegm, still awaiting for another specimen ,container provided to pt for next collection. no bm, voided orange colored, still having sob when coughing oxygen 3 liters at all times.vss,afebrile,kept on airborne isolation ,strictly observed, sinus rhythm on monitor. all needs attended.
[2017-10-10] MEDS: MEGESTROL ACETATE SUSP 400 MG/10 ML UDC PO SCH ×3 (08:09→18:03)
[2017-10-10] MEDS: PANTOPRAZOLE 40 MG TABLET.DR PO SCH (08:09)
[2017-10-10] MEDS: PYRIDOXINE HCL 50 MG TABLET PO SCH (08:09)
[2017-10-10] MEDS: ENSURE ENLIVE CHOC 237 ML CAN PO SCH ×2 (08:09→17:00)
[2017-10-10] MEDS: MELOXICAM 7.5 MG TABLET PO SCH (08:09)
[2017-10-10] MEDS: FERROUS SULFATE (325 MG) 325 MG/TAB TABLET PO SCH (08:09)
[2017-10-10] MEDS ORDERED: K PHOS NEUTRAL 250 MG TABLET PO ONE (11:30)
[2017-10-10] MEDS: ETHAMBUTOL HCL (400 MG) 400 MG TABLET PO SCH (18:03)
--- NOTE | 2017-10-10 19:25 | NUR ---
RN OPENING NOTES RECEIVED PATIENT IN BED, ALERT AND ORIENTED, NOTED WITH NO SOB, BREATHING EVEN AND UNLABORED AND IN NO ACUTE DISTRESS. DENIES PAIN AT THIS TIME. ALL PATIENT'S NEEDS ATTENDED TO, PLACED BED IN LOW POSITION AND LOCKED IN PLACE. CALL LIGHT WITHIN EASY REACH.
[2017-10-10] MEDS: ACETAMINOPHEN 325 MG TABLET PO PRN (20:11)
[2017-10-10] MEDS: ENOXAPARIN SODIUM 30 MG/0.3 ML DISP.SYRIN SQ SCH (20:12)
[2017-10-10] MEDS: ISONIAZID 100 MG TABLET PO SCH (21:47)
[2017-10-10] MEDS: PYRAZINAMIDE 500 MG TABLET PO SCH (21:47)
[2017-10-10] MEDS: RIFAMPIN 150 MG CAPSULE PO SCH (21:47)
[2017-10-10] MEDS: TEMAZEPAM 15 MG CAPSULE PO PRN (23:46)
[2017-10-11] VITALS: BP 130/69
[2017-10-11 04:00] VITALS: BP 146/79
[2017-10-11] MEDS: GUAIFENESIN/D-METHORPHAN HB 5 ML UDC PO PRN (04:34)
[2017-10-11] MEDS: ACETAMINOPHEN 325 MG TABLET PO PRN (04:34)
--- NOTE | 2017-10-11 06:45 | NUR ---
ACCOUNT ANALYST CLOSING NOTES PATIENT IN BED, IN STABLE CONDITION, ALL NEEDS ATTENDED TO THROUGHOUT THE SHIFT, ALL DUE MEDICATION ADMINISTERED. PT INDEPENDENT WITH BED MOBILITY, ABLE TO AMBULATE TO BEDSIDE COMMODE. PT CONTINUES TO RECEIVE O2 VIA NC, TOLERATING WELL WITH O2 SAT WNL. PLACED CALL LIGHT WITHIN EASY REACH, BED IN LOW POSITION AND LOCKED IN PLACE. WILL ENDORSE TO AM SHIFT NURSE FOR CONTINUITY OF CARE. PT ON TELE WITH SR-ST 80-100S
--- NOTE | 2017-10-11 07:30 | NUR ---
BIOFUELS PRODUCTION MANAGER NOTE: RECEIVED PATIENT IN BED, AWAKE, ALERT AND VERBALLY RESPONSIVE. ON O2 3L/MIN VIA NC AND SATURATING 100%. NO SHORTNESS OF BREATH NOTED. HOB ELEVATED ON SEMI-BURNS'S POSITION. ON AIRBORNE PRECAUTION FOR TB. ON SPRAYER HAND SR HR= 98. AFEBRILE. BED IN LOW POSITION AND LOCKED AT ALL TIMES. CALL LIGHT WITHIN REACH. NEEDS ANTICIPATED.
[2017-10-11 08:00] VITALS: BP 125/81
[2017-10-11] MEDS: MEGESTROL ACETATE SUSP 400 MG/10 ML UDC PO SCH ×2 (08:12→17:14)
[2017-10-11] MEDS: MELOXICAM 7.5 MG TABLET PO SCH (08:13)
[2017-10-11] MEDS: PYRIDOXINE HCL 50 MG TABLET PO SCH (08:13)
[2017-10-11] MEDS: FERROUS SULFATE (325 MG) 325 MG/TAB TABLET PO SCH (08:13)
[2017-10-11] MEDS: PANTOPRAZOLE 40 MG TABLET.DR PO SCH (08:13)
[2017-10-11] MEDS: ENSURE ENLIVE CHOC 237 ML CAN PO SCH ×2 (08:14→17:14)
[2017-10-11 12:00] VITALS: BP 124/80
[2017-10-11 16:00] VITALS: BP 142/82
--- NOTE | 2017-10-11 17:00 | NUR ---
SPINE SURGEON NOTE: PATIENT CARE WAS TRANSFERRED TO GERMAN PATTON RN FOR CONTINUITY OF CARE.
[2017-10-11] MEDS: ETHAMBUTOL HCL (400 MG) 400 MG TABLET PO SCH (17:14)
--- NOTE | 2017-10-11 18:12 | NUR ---
ASSUMED CARE OF PT. PT ALERT, AWAKE AND ORIENTED. SITTING UP IN BED, EATING DINNER. NO C/O PAIN. NO S/S OF ACUTE DISTRESS NOTED. WILL CONT TO MONITOR.
[2017-10-11 20:00] VITALS: BP 133/70
[2017-10-11] MEDS: PYRAZINAMIDE 500 MG TABLET PO SCH (21:14)
[2017-10-11] MEDS: RIFAMPIN 150 MG CAPSULE PO SCH (21:14)
[2017-10-11] MEDS: ISONIAZID 100 MG TABLET PO SCH (21:14)
[2017-10-11] MEDS: ENOXAPARIN SODIUM 30 MG/0.3 ML DISP.SYRIN SQ SCH (21:15)
[2017-10-11] MEDS: HYDROCODONE BIT/HOMATROPINE 5 ML UDC PO PRN (21:25)
[2017-10-11] MEDS: TEMAZEPAM 15 MG CAPSULE PO PRN (21:25)
[2017-10-12] VITALS (7 sets, daily range): BP systolic 121–145; BP diastolic 73–80
[2017-10-12] MEDS: PANTOPRAZOLE 40 MG TABLET.DR PO SCH (07:11)
[2017-10-12] MEDS: GUAIFENESIN/D-METHORPHAN HB 5 ML UDC PO PRN (07:22)
--- NOTE | 2017-10-12 07:55 | NUR ---
RN NOTE RECEIVED PATIENT AWAKE IN BED WATCHING T.V. ALERT AND ORIENTED X4, HE IS ABLE TO MAKE NEEDS KNOWN AND VERBALIZE NEEDS. BREATHING EVEN AND UNLABORED WITH NO DISTRESS NOTED. ON CONTINUOUS O2 2L VA NC SATURATING WELL. ON LAYBOY TENDER SINUS TACHY HR OF 118. IV SITE INTACT AND PATENT. ALL SAFETY MEASURES DONE. BED LOW AND LOCKED POSITION. PLACED CALL LIGHT WITHIN REACH. WILL CONTINUE TO MONITOR.
[2017-10-12] MEDS: ALBUTEROL FS 2.5 MG/0.5 ML VIAL.NEB NEB PRN ×2 (08:10→20:08)
[2017-10-12] MEDS: IPRATROPIUM NEB FS 0.5 MG/2.5 ML AMPUL.NEB NEB PRN ×2 (08:10→20:08)
[2017-10-12] MEDS: FERROUS SULFATE (325 MG) 325 MG/TAB TABLET PO SCH (08:16)
[2017-10-12] MEDS: PYRIDOXINE HCL 50 MG TABLET PO SCH (08:16)
[2017-10-12] MEDS: ENSURE ENLIVE CHOC 237 ML CAN PO SCH ×2 (08:16→17:11)
[2017-10-12] MEDS: MEGESTROL ACETATE SUSP 400 MG/10 ML UDC PO SCH ×2 (08:16→17:11)
[2017-10-12] MEDS: MELOXICAM 7.5 MG TABLET PO SCH (08:16)
--- NOTE | 2017-10-12 09:56 | NUR ---
LAB REJECTED AFB SPECIMEN SEND IN AM NOT ENOUGH ,NEED TO RESEND AM SPUTUM,PT. VERY DRY.WILL NOTIFIED
--- NOTE | 2017-10-12 10:40 | NUR ---
RN NOTE REPEAT OF SPUTUM FOR AFB COLLECTED AND SENT TO LAB
--- NOTE | 2017-10-12 13:39 | NUR ---
RN NOTE NICOLE FROM LABORATORY CALLED STATED PATIENT IS POSITIVE FOR AF[employer] OF SPUTUM. CHARGE NURSE AND MD MADE AWARE.
[2017-10-12] MEDS: ETHAMBUTOL HCL (400 MG) 400 MG TABLET PO SCH (17:11)
--- NOTE | 2017-10-12 18:30 | NUR ---
RN NOTE SECOND SPUTUM COLLECTED. CALLED LAB TO MARITIME GUARD SPECIMEN.
--- NOTE | 2017-10-12 19:03 | NUR ---
RN NOTE PATIENT REMAINED STABLE THROUGHOUT SHIFT WITH NO ACUTE CHANGES OR DISTRESS NOTED. WILL ENDORSE TO NEXT SHIFT TO CONTINUE TO MONITOR FOR CONTINUITY OF CARE.
[2017-10-12] MEDS: RIFAMPIN 150 MG CAPSULE PO SCH (21:41)
[2017-10-12] MEDS: ISONIAZID 100 MG TABLET PO SCH (21:41)
[2017-10-12] MEDS: HYDROCODONE BIT/HOMATROPINE 5 ML UDC PO PRN (21:42)
[2017-10-12] MEDS: TEMAZEPAM 15 MG CAPSULE PO PRN (21:42)
[2017-10-12] MEDS: PYRAZINAMIDE 500 MG TABLET PO SCH (21:43)
[2017-10-12] MEDS: ENOXAPARIN SODIUM 30 MG/0.3 ML DISP.SYRIN SQ SCH (21:44)
[2017-10-13] VITALS: BP 134/74
[2017-10-13 04:00] VITALS: BP 131/80
[2017-10-13 07:06] LABS: EOSINOPHILS % (AUTO) 1.9 % (0.0-6.0); HEMATOCRIT 30 % (39-51); HEMOGLOBIN 9.8 g/dL (13.5-17.5); LYMPHOCYTES # (AUTO) 0.7 /CMM (0.8-4.8); LYMPHOCYTES % (AUTO) 6.7 % (20.0-44.0); MEAN CORPUSCULAR HEMOGLOBIN 29 PG (26.0-33.0); MEAN CORPUSCULAR HGB CONC 32 g/dl (31.0-36.0); MEAN CORPUSCULAR VOLUME 91 fL (80-96); MONOCYTES # (AUTO) 0.6 /CMM (0.1-1.30); NEUTROPHILS # (AUTO) 8.8 /CMM (1.8-8.9); NEUTROPHILS % (AUTO) 85.4 % (43.0-81.0); PLATELET COUNT (AUTO) 519 /CMM (150-450); RDW COEFFICIENT OF VARIATION 19.5 (11.5-15.0); RED BLOOD CELL COUNT(AUTO) 3.33 MIL/uL (4.5-6.0); WHITE BLOOD COUNT (AUTO) 10.3 K/uL (4.3-11.0)
[2017-10-13 07:39] LABS: CALCIUM, SERUM 7.4 mg/dL (8.5-10.1); CREATININE 0.5 mg/dL (0.6-1.3); PHOSPHORUS 2.3 mg/dL (2.5-4.9); POTASSIUM 3.6 mmol/L (3.5-5.1)
--- NOTE | 2017-10-13 07:45 | NUR ---
RN NOTE RECEIVED PATIENT AWAKE IN BED WATCHING T.V. ALERT AND ORIENTED X4, HE IS ABLE TO MAKE NEEDS KNOWN AND VERBALIZE NEEDS. BREATHING EVEN AND UNLABORED WITH NO DISTRESS NOTED. ON CONTINUOUS O2 3L VIA NC SATURATING WELL. ON MANAGEMENT TRAINEE PROGRAM STORES SINUS TACHY HR OF 120. IV SITE INTACT AND PATENT. ALL SAFETY MEASURES DONE. BED LOW AND LOCKED POSITION. PLACED CALL LIGHT WITHIN REACH. WILL CONTINUE TO MONITOR.
[2017-10-13] MEDS: PANTOPRAZOLE 40 MG TABLET.DR PO SCH (07:46)
[2017-10-13 08:00] VITALS: BP 130/78
[2017-10-13] MEDS: MEGESTROL ACETATE SUSP 400 MG/10 ML UDC PO SCH ×2 (08:57→16:30)
[2017-10-13] MEDS: FERROUS SULFATE (325 MG) 325 MG/TAB TABLET PO SCH (08:57)
[2017-10-13] MEDS: PYRIDOXINE HCL 50 MG TABLET PO SCH (08:57)
[2017-10-13] MEDS: MELOXICAM 7.5 MG TABLET PO SCH (08:57)
[2017-10-13] MEDS: ENSURE ENLIVE CHOC 237 ML CAN PO SCH ×2 (08:57→16:30)
[2017-10-13] MEDS ORDERED: K PHOS NEUTRAL 250 MG TABLET PO ONE (11:30)
[2017-10-13 12:00] VITALS: BP 126/81
[2017-10-13 16:00] VITALS: BP 144/78
[2017-10-13] MEDS: GUAIFENESIN/D-METHORPHAN HB 5 ML UDC PO PRN (16:38)
[2017-10-13] MEDS: IPRATROPIUM NEB FS 0.5 MG/2.5 ML AMPUL.NEB NEB PRN ×2 (16:45→19:53)
[2017-10-13] MEDS: ALBUTEROL FS 2.5 MG/0.5 ML VIAL.NEB NEB PRN ×2 (16:45→19:53)
[2017-10-13] MEDS: ETHAMBUTOL HCL (400 MG) 400 MG TABLET PO SCH (18:04)
[2017-10-13 20:00] VITALS: BP 157/88
[2017-10-13] MEDS: RIFAMPIN 150 MG CAPSULE PO SCH (21:49)
[2017-10-13] MEDS: HYDROCODONE BIT/HOMATROPINE 5 ML UDC PO PRN (21:49)
[2017-10-13] MEDS: PYRAZINAMIDE 500 MG TABLET PO SCH (21:49)
[2017-10-13] MEDS: TEMAZEPAM 15 MG CAPSULE PO PRN (21:49)
[2017-10-13] MEDS: ISONIAZID 100 MG TABLET PO SCH (21:49)
[2017-10-13] MEDS: ENOXAPARIN SODIUM 30 MG/0.3 ML DISP.SYRIN SQ SCH (21:50)
[2017-10-14] VITALS: BP 114/69
[2017-10-14 04:00] VITALS: BP 126/72
--- NOTE | 2017-10-14 07:20 | NUR ---
SOFTWARE COMPUTER SPECIALIST OPENING NOTE RECEIVED PATIENT AWAKE IN BED WATCHING T.V. ALERT AND ORIENTED X4, HE IS ABLE TO MAKE NEEDS KNOWN AND VERBALIZE NEEDS. BREATHING EVEN AND UNLABORED WITH NO DISTRESS NOTED. ON CONTINUOUS O2 3L VA NC . ON FURNITURE DUSTER SINUS TACHY HR OF 112. IV SITE INTACT AND PATENT. ALL SAFETY MEASURES DONE. BED LOW AND LOCKED POSITION. PLACED CALL LIGHT WITHIN REACH.ASKED TO CALL FOR HELP WHEN READY TO USE BEDSIDE COMMODE. WILL CONTINUE TO MONITOR.
[2017-10-14 08:00] VITALS: BP 134/80
[2017-10-14] MEDS: MELOXICAM 7.5 MG TABLET PO SCH (08:19)
[2017-10-14] MEDS: MEGESTROL ACETATE SUSP 400 MG/10 ML UDC PO SCH ×2 (08:19→17:14)
[2017-10-14] MEDS: PYRIDOXINE HCL 50 MG TABLET PO SCH (08:19)
[2017-10-14] MEDS: PANTOPRAZOLE 40 MG TABLET.DR PO SCH (08:19)
[2017-10-14] MEDS: FERROUS SULFATE (325 MG) 325 MG/TAB TABLET PO SCH (08:19)
[2017-10-14] MEDS: ENSURE ENLIVE CHOC 237 ML CAN PO SCH ×2 (08:33→17:15)
--- NOTE | 2017-10-14 11:30 | NUR ---
SHAKER SCREEN OPERATOR NOTES SEEN BY MADE AWARE ABOUT ALL THE ABNORMAL LABS AND PATIENT CONDITION.PHARMACY WILL FOLLOW UP WITH LOW PHOS..
[2017-10-14] MEDS ORDERED: K PHOS NEUTRAL 250 MG TABLET PO ONE (14:00)
[2017-10-14] MEDS: GUAIFENESIN/D-METHORPHAN HB 5 ML UDC PO PRN ×2 (15:37→21:18)
[2017-10-14] MEDS: ACETAMINOPHEN 325 MG TABLET PO PRN (15:38)
[2017-10-14 16:00] VITALS: BP 152/86
[2017-10-14] MEDS: ETHAMBUTOL HCL (400 MG) 400 MG TABLET PO SCH (17:15)
--- NOTE | 2017-10-14 18:59 | NUR ---
SPECIAL FORCES WEAPONS SERGEANT SHIFT END NOTE PATIENT AWAKE IN BED WATCHING T.V. ALERT AND ORIENTED X4, HE IS ABLE TO MAKE NEEDS KNOWN AND VERBALIZE NEEDS. BREATHING EVEN AND UNLABORED WITH NO DISTRESS NOTED. ON CONTINUOUS O2 3L VA NC . ON RN LONG TERM CARE SINUS TACHY HR OF 108. IV SITE INTACT AND PATENT. ALL SAFETY MEASURES DONE. BED LOW AND LOCKED POSITION. PLACED CALL LIGHT WITHIN REACH.ASKED TO CALL FOR HELP WHEN READY TO USE BEDSIDE COMMODE. WILL ENDORSE TO PM NURSE FOR ERNESTINA. Addendum: 10/15/17 at 0739 by CHIDI CHEATHAM RN PT IS MS
--- NOTE | 2017-10-14 20:59 | NUR ---
KRYSTAL MS INITIAL NOTE RECEIVED PATIENT AWAKE IN BED, ALERT AND ORIENTED X4, HE IS ABLE TO MAKE NEEDS KNOWN AND VERBALIZE NEEDS. BREATHING EVEN AND UNLABORED WITH NO DISTRESS NOTED, REQUESTING FOR COUGH SYRUP. ON CONTINUOUS O2 3L VA NC . ON DRAWING IN MACHINE TENDER . IV SITE INTACT AND PATENT. ALL SAFETY MEASURES DONE. BED LOW AND LOCKED POSITION. PLACED CALL LIGHT WITHIN REACH.ASKED TO CALL FOR HELP WHEN READY TO USE BEDSIDE COMMODE. WILL CONTINUE TO MONITOR. Addendum: 10/15/17 at 0604 by SEAN HEADLEY RN PT MS
[2017-10-14] MEDS: PYRAZINAMIDE 500 MG TABLET PO SCH (21:19)
[2017-10-14] MEDS: RIFAMPIN 150 MG CAPSULE PO SCH (21:19)
[2017-10-14] MEDS: ISONIAZID 100 MG TABLET PO SCH (21:19)
[2017-10-14] MEDS: ENOXAPARIN SODIUM 30 MG/0.3 ML DISP.SYRIN SQ SCH (21:25)
[2017-10-15] VITALS: BP 133/74
[2017-10-15] MEDS: TEMAZEPAM 15 MG CAPSULE PO PRN ×2 (01:59→21:50)
--- NOTE | 2017-10-15 06:04 | NUR ---
RN MS CLOSING NOTE RECEIVED PATIENT AWAKE IN BED, ALERT AND ORIENTED X4, HE IS ABLE TO MAKE NEEDS KNOWN AND VERBALIZE NEEDS. BREATHING EVEN AND UNLABORED WITH NO DISTRESS NOTED. ON CONTINUOUS O2 3L VA NC . IV SITE INTACT AND PATENT. ALL SAFETY MEASURES DONE. BED LOW AND LOCKED POSITION. PLACED CALL LIGHT WITHIN REACH.ASKED TO CALL FOR HELP WHEN READY TO USE BEDSIDE COMMODE. WILL CONTINUE TO MONITOR.
--- NOTE | 2017-10-15 07:10 | NUR ---
MS RN INITIAL NOTE RECEIVED PATIENT AWAKE IN BED, ALERT AND ORIENTED X4, HE IS ABLE TO MAKE NEEDS KNOWN AND VERBALIZE NEEDS. BREATHING EVEN AND UNLABORED WITH NO DISTRESS NOTED, REQUESTING FOR COUGH SYRUP. ON CONTINUOUS O2 3L VA NC . IV SITE INTACT AND PATENT. ALL SAFETY MEASURES DONE. BED LOW AND LOCKED POSITION. PLACED CALL LIGHT WITHIN REACH.ASKED TO CALL FOR HELP WHEN READY TO USE BEDSIDE COMMODE. WILL CONTINUE TO MONITOR.
[2017-10-15 08:00] VITALS: BP 136/84
[2017-10-15] MEDS: MEGESTROL ACETATE SUSP 400 MG/10 ML UDC PO SCH ×2 (08:08→17:57)
[2017-10-15] MEDS: FERROUS SULFATE (325 MG) 325 MG/TAB TABLET PO SCH (08:08)
[2017-10-15] MEDS: PYRIDOXINE HCL 50 MG TABLET PO SCH (08:08)
[2017-10-15] MEDS: MELOXICAM 7.5 MG TABLET PO SCH (08:08)
[2017-10-15] MEDS: ENSURE ENLIVE CHOC 237 ML CAN PO SCH ×2 (08:08→17:57)
[2017-10-15] MEDS: PANTOPRAZOLE 40 MG TABLET.DR PO SCH (08:08)
[2017-10-15 08:25] LABS: CALCIUM, SERUM 7.5 mg/dL (8.5-10.1); CREATININE 0.5 mg/dL (0.6-1.3); PHOSPHORUS 2.6 mg/dL (2.5-4.9); POTASSIUM 3.8 mmol/L (3.5-5.1)
[2017-10-15 16:00] VITALS: BP 144/83
--- NOTE | 2017-10-15 16:00 | NUR ---
RN NOTES SEEN BY AND GOT NEW ORDERS. AWARE ABOUT POSITIVE AF[employer] RESULT.
[2017-10-15] MEDS: ETHAMBUTOL HCL (400 MG) 400 MG TABLET PO SCH (18:00)
--- NOTE | 2017-10-15 19:26 | NUR ---
WINDOW GLASS INSTALLER SHIFT END NOTE PATIENT AWAKE IN BED WATCHING T.V. ALERT AND ORIENTED X4, HE IS ABLE TO MAKE NEEDS KNOWN AND VERBALIZE NEEDS. BREATHING EVEN AND UNLABORED WITH NO DISTRESS NOTED. ON CONTINUOUS O2 3L VA NC . IV SITE INTACT AND PATENT. ALL SAFETY MEASURES DONE. BED LOW AND LOCKED POSITION. PLACED CALL LIGHT WITHIN REACH.ASKED TO CALL FOR HELP WHEN READY TO USE BEDSIDE COMMODE. ENDORSED TO PM NURSE FOR ERNESTINA.
[2017-10-15 20:00] VITALS: BP 137/71
[2017-10-15] MEDS: PYRAZINAMIDE 500 MG TABLET PO SCH (21:49)
[2017-10-15] MEDS: ISONIAZID 100 MG TABLET PO SCH (21:49)
[2017-10-15] MEDS: RIFAMPIN 150 MG CAPSULE PO SCH (21:50)
[2017-10-15] MEDS: ENOXAPARIN SODIUM 30 MG/0.3 ML DISP.SYRIN SQ SCH (21:52)
[2017-10-15] MEDS: GUAIFENESIN/D-METHORPHAN HB 5 ML UDC PO PRN (21:59)
--- NOTE | 2017-10-15 23:24 | NUR ---
RN NOTES RECEIVED PATIENT AWAKE IN BED WITH NO DISTRESS NOTED. ALERT AND ORIENTED. NO COMPLAINT OF PAIN BUT REQUESTED FOR RESTORIL FOR SLEEP. VERBALLY ABLE TO COMMUNICATE NEEDS. VITAL SIGNS WNL. KEPT CLEAN AND DRY. NEEDS ATTENDED. KEPT CLEAN AND DRY
[2017-10-16] VITALS: BP 121/75
[2017-10-16 04:00] VITALS: BP 123/72
[2017-10-16 07:31] LABS: BASOPHILS % (AUTO) 0.4 % (0.0-2.0); EOSINOPHILS % (AUTO) 2.4 % (0.0-6.0); HEMATOCRIT 33 % (39-51); HEMOGLOBIN 10.4 g/dL (13.5-17.5); LYMPHOCYTES # (AUTO) 1.1 /CMM (0.8-4.8); LYMPHOCYTES % (AUTO) 9.1 % (20.0-44.0); MEAN CORPUSCULAR HEMOGLOBIN 29 PG (26.0-33.0); MEAN CORPUSCULAR HGB CONC 32 g/dl (31.0-36.0); MEAN CORPUSCULAR VOLUME 91 fL (80-96); MONOCYTES # (AUTO) 0.2 /CMM (0.1-1.30); MONOCYTES % (AUTO) 1.4 % (2.0-12.0); NEUTROPHILS # (AUTO) 10.9 /CMM (1.8-8.9); NEUTROPHILS % (AUTO) 86.7 % (43.0-81.0); PLATELET COUNT (AUTO) 617 /CMM (150-450); RDW COEFFICIENT OF VARIATION 20.1 (11.5-15.0); RED BLOOD CELL COUNT(AUTO) 3.59 MIL/uL (4.5-6.0); WHITE BLOOD COUNT (AUTO) 12.6 K/uL (4.3-11.0)
[2017-10-16 07:52] LABS: ALBUMIN 1.5 g/dL (3.4-5.0); BILIRUBIN,TOTAL 0.2 mg/dL (0.2-1.0); CALCIUM, SERUM 7.7 mg/dL (8.5-10.1); CREATININE 0.5 mg/dL (0.6-1.3); MAGNESIUM 1.8 mg/dL (1.8-2.4); PHOSPHORUS 2.5 mg/dL (2.5-4.9); TOTAL PROTEIN, SERUM 5.8 g/dL (6.4-8.2)
[2017-10-16] MEDS: PANTOPRAZOLE 40 MG TABLET.DR PO SCH (07:52)
[2017-10-16] MEDS: GUAIFENESIN/D-METHORPHAN HB 5 ML UDC PO PRN ×2 (07:52→17:46)
[2017-10-16] MEDS: ENSURE ENLIVE CHOC 237 ML CAN PO SCH ×2 (07:52→17:06)
[2017-10-16 08:00] VITALS: BP 141/86
[2017-10-16] MEDS: MELOXICAM 7.5 MG TABLET PO SCH (08:36)
[2017-10-16] MEDS: MEGESTROL ACETATE SUSP 400 MG/10 ML UDC PO SCH ×2 (08:36→17:06)
[2017-10-16] MEDS: PYRIDOXINE HCL 50 MG TABLET PO SCH (08:37)
[2017-10-16] MEDS: HYDROCODONE/APAP 10/325MG 1 EA TABLET PO PRN (08:37)
[2017-10-16] MEDS: FERROUS SULFATE (325 MG) 325 MG/TAB TABLET PO SCH (08:37)
[2017-10-16 16:00] VITALS: BP 143/84
[2017-10-16] MEDS: ETHAMBUTOL HCL (400 MG) 400 MG TABLET PO SCH (17:07)
[2017-10-16] MEDS: ALBUTEROL FS 2.5 MG/0.5 ML VIAL.NEB NEB PRN (18:14)
[2017-10-16] MEDS: IPRATROPIUM NEB FS 0.5 MG/2.5 ML AMPUL.NEB NEB PRN (18:14)
--- NOTE | 2017-10-16 19:41 | NUR ---
MS RN NOTE PT IN BED HIGH BURNS POSITION. A/O X 4, NO SOB, NO DISTRESS OR DISCOMFORT NOTED. DENIES PAIN. O2 2L VIA N/C. REMAIN IN ISOLATION FOR TB, ISOLATION PRECAUTIONS TAKEN. S/L ON RT HAND #24G INTACT AND PATENT. SIDE RAILS UP X 3 AND CALL LIGHT WITHIN REACH. VSS. CONTINUE TO MONITOR HIM.
[2017-10-16 20:00] VITALS: BP 155/86
[2017-10-16] MEDS: ENOXAPARIN SODIUM 30 MG/0.3 ML DISP.SYRIN SQ SCH (21:17)
[2017-10-16] MEDS: PYRAZINAMIDE 500 MG TABLET PO SCH (21:18)
[2017-10-16] MEDS: ISONIAZID 100 MG TABLET PO SCH (21:18)
[2017-10-16] MEDS: RIFAMPIN 150 MG CAPSULE PO SCH (22:00)
[2017-10-16] MEDS ORDERED: RIFAMPIN 300 MG CAPSULE ONE (22:30)
--- NOTE | 2017-10-16 22:30 | NUR ---
MS RN NOTE NOTED RIFADIN MED NOT AVAILABLE. INFORMED CHARGE NURSE WHO ALSO LOOKED FOR IT. NURSING CANDY VENDOR INFORMED THAT DOSE WE HAVE IS 300 MG CAP, AND DOSE TO BE GIVEN IS 450 MG. ENGINEER CHIEF PHARMACY INFORMED.
--- NOTE | 2017-10-16 23:20 | NUR ---
MS KRYSTAL NOTE MAURA TAYLOR PAGED FOR THE MEDICATION.
--- NOTE | 2017-10-16 23:55 | NUR ---
MS 1 RN NOTE CHARGE NURSE TALKED WITH MAURA TAYLOR AND RECEIVED NEW ORDER OF RIFADIN 300 MG FOR TONIGHT AND THEN CONTINUE 450 MG IN AM. ORDER NOTED AND CARRIED. OUT.
[2017-10-17] VITALS: BP 146/83
[2017-10-17] MEDS ORDERED: RIFAMPIN 300 MG CAPSULE PO SCH (00:30)
[2017-10-17] MEDS: GUAIFENESIN/D-METHORPHAN HB 5 ML UDC PO PRN (03:22)
--- NOTE | 2017-10-17 03:22 | NUR ---
MS 1 RN NOTE PT WOKE UP AND ASKING FOR COUGH SYRUP. ROBUTUSSIN 5 ML PO GIVEN FOR COUGH.
[2017-10-17 04:00] VITALS: BP 141/85
--- NOTE | 2017-10-17 04:24 | NUR ---
MS 1 RN NOTE COUGHING SUPPRESSED. CONTINUE TO MONITOR HIM.
--- NOTE | 2017-10-17 06:22 | NUR ---
MS 1 RN NOTE PT IN BED ASLEEP, AROUSABLE. NO DISTRESS OR DISCOMFORT NOTED. DENIES PAIN. RT HAND SL #24 G INTACT AND PATENT. SIDE RAILS UP X 3 AND CALL LIGHT WITHIN REACH. WILL ENDORSE TO DAY SHIFT NURSE FOR CONTINUE TO CARE.
[2017-10-17 07:02] LABS: BASOPHILS % (AUTO) 0.4 % (0.0-2.0); EOSINOPHILS % (AUTO) 2.1 % (0.0-6.0); HEMATOCRIT 30 % (39-51); HEMOGLOBIN 9.7 g/dL (13.5-17.5); LYMPHOCYTES # (AUTO) 0.8 /CMM (0.8-4.8); LYMPHOCYTES % (AUTO) 6.9 % (20.0-44.0); MEAN CORPUSCULAR HEMOGLOBIN 30 PG (26.0-33.0); MEAN CORPUSCULAR HGB CONC 33 g/dl (31.0-36.0); MEAN CORPUSCULAR VOLUME 91 fL (80-96); MONOCYTES # (AUTO) 0.6 /CMM (0.1-1.30); MONOCYTES % (AUTO) 5.1 % (2.0-12.0); NEUTROPHILS # (AUTO) 10.4 /CMM (1.8-8.9); NEUTROPHILS % (AUTO) 85.5 % (43.0-81.0); PLATELET COUNT (AUTO) 557 /CMM (150-450); RDW COEFFICIENT OF VARIATION 19.2 (11.5-15.0); RED BLOOD CELL COUNT(AUTO) 3.26 MIL/uL (4.5-6.0); WHITE BLOOD COUNT (AUTO) 12.1 K/uL (4.3-11.0)
[2017-10-17 07:20] LABS: CALCIUM, SERUM 7.6 mg/dL (8.5-10.1); CREATININE 0.5 mg/dL (0.6-1.3); MAGNESIUM 1.9 mg/dL (1.8-2.4); PHOSPHORUS 2.6 mg/dL (2.5-4.9); POTASSIUM 3.9 mmol/L (3.5-5.1)
--- NOTE | 2017-10-17 07:30 | NUR ---
MS RN NOTES: RECEIVED PT ON BED ALERT AND AWAKE. VERBALLY RESPONSIVE. ABLE TO MAKE NEEDS KNOWN. NO ACUTE DISTRESS NOTED. NO COMPLAINTS OF PAIN OR DISCOMFORT. ON O2 3LPM VIA NC, NO SOB NOTED. KEPT CLEAN, DRY AND COMFORTABLE. AIRBORNE PRECAUTIONS OBSERVED AND MAINTAINED. CALL LIGHT PLACED WITHIN REACH. WILL CONTINUE TO MONITOR PT.
[2017-10-17 08:00] VITALS: BP 147/68
[2017-10-17] MEDS: PANTOPRAZOLE 40 MG TABLET.DR PO SCH (08:11)
[2017-10-17] MEDS: MEGESTROL ACETATE SUSP 400 MG/10 ML UDC PO SCH ×2 (08:12→16:54)
[2017-10-17] MEDS: ENSURE ENLIVE CHOC 237 ML CAN PO SCH ×2 (08:12→16:54)
[2017-10-17] MEDS: PYRIDOXINE HCL 50 MG TABLET PO SCH (08:12)
[2017-10-17] MEDS: FERROUS SULFATE (325 MG) 325 MG/TAB TABLET PO SCH (08:12)
[2017-10-17] MEDS: MELOXICAM 7.5 MG TABLET PO SCH (08:12)
--- NOTE | 2017-10-17 13:11 | NUR ---
MS RN NOTES: RECEIVED A CALL FROM CAROLE (LAB) REGARDING PATIENT'S AF[employer] ABNORMAL POSITIVE FROM THE SPUTUM COLLECTED LAST 10/07.
[2017-10-17 16:00] VITALS: BP 157/71
--- NOTE | 2017-10-17 16:00 | NUR ---
MS RN NOTES: DR. WYNN AWARE THAT SPECIMEN FOR AFB CULTURE THAT WAS ORDERED LAST 10/16/2017 HAS NOT BEEN COLLECTED YET.
[2017-10-17] MEDS: ALBUTEROL FS 2.5 MG/0.5 ML VIAL.NEB NEB PRN (16:31)
[2017-10-17] MEDS: IPRATROPIUM NEB FS 0.5 MG/2.5 ML AMPUL.NEB NEB PRN (16:31)
[2017-10-17] MEDS: ETHAMBUTOL HCL (400 MG) 400 MG TABLET PO SCH (17:05)
--- NOTE | 2017-10-17 18:25 | NUR ---
MS RN NOTES: NO CHANGES THROUGHOUT THE SHIFT. DENIES PAIN AND DISCOMFORT AT THIS TIME. ON O2 3LPM VIA NC, SATURATING WELL. SPUTUM COLLECTED ORDERED. ALL DUE MEDS GIVEN ORDERED AND WELL TOLERATED. CALL LIGHT WITHIN REACH. KEPT CLEAN, DRY AND COMFORTABLE. SAFETY AND FALL PRECAUTIONS OBSERVED AND MAINTAINED. WILL ENDORSE TO OLIVER FILTER OPERATOR FOR CONTINUITY OF CARE
--- NOTE | 2017-10-17 20:00 | NUR ---
MS RN NOTE PT IN BED AWAKE. A/O X 4, NO SOB, NO DISTRESS OR DISCOMFORT NOTED. DENIES PAIN. REMAIN IN ISOLATION FOR TB, ISOLATION PRECAUTIONS TAKEN. ON 3L O2 VIA NC O2 SAT 98%. RT HAND S/L INTACT AND PATENT. SIDE RAILS UP UP X 3 AND CALL LIGHT WITHIN REACH. CONTINUE TO MONITOR.
[2017-10-17] MEDS: ISONIAZID 100 MG TABLET PO SCH (21:27)
[2017-10-17] MEDS: RIFAMPIN 150 MG CAPSULE PO SCH (21:27)
[2017-10-17] MEDS: PYRAZINAMIDE 500 MG TABLET PO SCH (21:28)
[2017-10-17] MEDS: ENOXAPARIN SODIUM 30 MG/0.3 ML DISP.SYRIN SQ SCH (21:30)
[2017-10-18] MEDS: GUAIFENESIN/D-METHORPHAN HB 5 ML UDC PO PRN ×2 (02:31→20:37)
--- NOTE | 2017-10-18 02:31 | NUR ---
MS RN NOTE PT C/O COUGHING AND ASKING FOR COUGH SYRUP, ROBITUSSIN 5 ML PO GIVEN. CONTINUE TO MONITOR HIM.
--- NOTE | 2017-10-18 03:31 | NUR ---
MS RN NOTE COUGH SUBSIDED. PT IN NO DISTRESS OR DISCOMFORT.
[2017-10-18 04:00] VITALS: BP 119/75
[2017-10-18 06:25] LABS: BASOPHILS % (AUTO) 0.3 % (0.0-2.0); EOSINOPHILS % (AUTO) 1.8 % (0.0-6.0); HEMATOCRIT 30 % (39-51); HEMOGLOBIN 9.9 g/dL (13.5-17.5); LYMPHOCYTES # (AUTO) 0.9 /CMM (0.8-4.8); LYMPHOCYTES % (AUTO) 7.9 % (20.0-44.0); MEAN CORPUSCULAR HEMOGLOBIN 30 PG (26.0-33.0); MEAN CORPUSCULAR HGB CONC 33 g/dl (31.0-36.0); MEAN CORPUSCULAR VOLUME 91 fL (80-96); MONOCYTES # (AUTO) 0.6 /CMM (0.1-1.30); MONOCYTES % (AUTO) 5.2 % (2.0-12.0); NEUTROPHILS # (AUTO) 9.4 /CMM (1.8-8.9); NEUTROPHILS % (AUTO) 84.8 % (43.0-81.0); PLATELET COUNT (AUTO) 588 /CMM (150-450); RDW COEFFICIENT OF VARIATION 18.9 (11.5-15.0); RED BLOOD CELL COUNT(AUTO) 3.34 MIL/uL (4.5-6.0); WHITE BLOOD COUNT (AUTO) 11.1 K/uL (4.3-11.0)
--- NOTE | 2017-10-18 06:27 | NUR ---
MS RN NOTE PT IN BED ASLEEP, EASILY AROUSABLE. ASKED PT TO COUGH UP SPUTUM BUT PT STATES "NOTHING AT THIS TIME". PROVIDED CUP TO THE PT FOR THE SPECIMEN. NO DISTRESS OR DISCOMFORT NOTED. DENIES PAIN. KEPT HIM DRY AND CLEAN. ALL NEEDS ATTENDED. SIDE RIALS UP X 2 AND CALL LIGHT WITHIN REACH. VSS WILL ENDORSE TO DAY SHIFT NURSE FOR CONTINUE TO CARE.
[2017-10-18 06:51] LABS: CALCIUM, SERUM 7.6 mg/dL (8.5-10.1); CREATININE 0.5 mg/dL (0.6-1.3); MAGNESIUM 1.9 mg/dL (1.8-2.4); PHOSPHORUS 2.9 mg/dL (2.5-4.9); POTASSIUM 3.9 mmol/L (3.5-5.1)
[2017-10-18] MEDS: IPRATROPIUM NEB FS 0.5 MG/2.5 ML AMPUL.NEB NEB PRN ×2 (07:51→19:14)
[2017-10-18] MEDS: ALBUTEROL FS 2.5 MG/0.5 ML VIAL.NEB NEB PRN ×2 (07:51→19:14)
[2017-10-18 08:00] VITALS: BP 141/82
[2017-10-18] MEDS: MELOXICAM 7.5 MG TABLET PO SCH (08:17)
[2017-10-18] MEDS: PYRIDOXINE HCL 50 MG TABLET PO SCH (08:17)
[2017-10-18] MEDS: FERROUS SULFATE (325 MG) 325 MG/TAB TABLET PO SCH (08:17)
[2017-10-18] MEDS: PANTOPRAZOLE 40 MG TABLET.DR PO SCH (08:17)
[2017-10-18] MEDS: MEGESTROL ACETATE SUSP 400 MG/10 ML UDC PO SCH ×4 (08:17→17:41)
[2017-10-18] MEDS: ENSURE ENLIVE CHOC 237 ML CAN PO SCH ×2 (08:19→16:52)
[2017-10-18 16:00] VITALS: BP 147/71
[2017-10-18 16:01] VITALS: BP 147/71
[2017-10-18] MEDS: ETHAMBUTOL HCL (400 MG) 400 MG TABLET PO SCH (17:41)
--- NOTE | 2017-10-18 19:43 | NUR ---
RN OPENING NOTES RECEIVED REPORT FROM VIOLETA RICE. PATIENT A/A/O X4, ABLE TO MAKE NEEDS KNOWN IN BOTH JAPANESE & TAGALOG. BREATHING EVEN & UNLABORED & CURRENTLY ON PRN BREATHING TX. O2 @ 3LPM VIA NC TO BE APPLIED. PULSES PRESENT & BOUNDING. RIGHT FOREARM IV #22 INTACT & PATENT W/ DRESSING CDI, SALINE LOCKED. C/O COUGH & NAUSEA W/ PRN ZOFRAN & ROBITUSSIN TO BE GIVEN. DENIES ANY PAIN OR DISCOMFORT @ THIS TIME. SAFETY MEASURES MAINTAINED W/ BED ALARM ON & CALL LIGHT WITHIN REACH. INSTRUCTED TO CALL FOR ASSISTANCE. WILL CONTINUE TO MONITOR.
[2017-10-18 20:00] VITALS: BP 139/76
[2017-10-18] MEDS: ENOXAPARIN SODIUM 30 MG/0.3 ML DISP.SYRIN SQ SCH (20:44)
[2017-10-18] MEDS: ISONIAZID 100 MG TABLET PO SCH (21:05)
[2017-10-18] MEDS: PYRAZINAMIDE 500 MG TABLET PO SCH (21:05)
[2017-10-18] MEDS: RIFAMPIN 150 MG CAPSULE PO SCH (21:05)
[2017-10-18] MEDS: TEMAZEPAM 15 MG CAPSULE PO PRN (21:06)
[2017-10-19 04:00] VITALS: BP 135/85
[2017-10-19] MEDS: GUAIFENESIN/D-METHORPHAN HB 5 ML UDC PO PRN ×2 (05:18→21:28)
--- NOTE | 2017-10-19 07:10 | NUR ---
MS/RN INITIAL NOTES RECEIVED PT IN BED, A/OX4, ON 3LPM O2 VIA NC, TOLERATING WELL, NO SOB NOTED. NO C/O PAIN AT THIS TIME. WITH PATENT AND INTACT RFA G#22 SL, NO SIGNS OF INFECTION NOTED. HOB ELEVATED. SAFETY MEASURES IN PLACED. AIRBORNE ISOLATION MAINTAINED. CALL LIGHT WITHIN REACH. WILL CONT TO MONITOR
[2017-10-19] MEDS: PANTOPRAZOLE 40 MG TABLET.DR PO SCH (07:45)
[2017-10-19] MEDS: ENSURE ENLIVE CHOC 237 ML CAN PO SCH ×2 (07:45→16:21)
[2017-10-19 08:00] VITALS: BP 127/79
[2017-10-19] MEDS: FERROUS SULFATE (325 MG) 325 MG/TAB TABLET PO SCH (08:00)
[2017-10-19] MEDS: MELOXICAM 7.5 MG TABLET PO SCH (08:00)
[2017-10-19] MEDS: MEGESTROL ACETATE SUSP 400 MG/10 ML UDC PO SCH ×2 (08:00→16:21)
[2017-10-19] MEDS: PYRIDOXINE HCL 50 MG TABLET PO SCH (08:00)
[2017-10-19] MEDS ORDERED: PYRI50TA74 PO (10:17)
[2017-10-19] MEDS ORDERED: PYRA500T13 PO (10:17)
[2017-10-19] MEDS ORDERED: ISON100T3 PO (10:17)
[2017-10-19] MEDS ORDERED: ETHA400T8 PO (10:17)
[2017-10-19] MEDS ORDERED: TEMA15CA5 PO (10:17)
[2017-10-19] MEDS ORDERED: RIFA150C2 PO (10:17)
[2017-10-19] MEDS ORDERED: MEGE400O4 PO (10:17)
[2017-10-19 16:00] VITALS: BP_SYST 127; BP_SYST 144; BP_DIAS 79; BP_DIAS 82
[2017-10-19] MEDS: ETHAMBUTOL HCL (400 MG) 400 MG TABLET PO SCH (17:15)
--- NOTE | 2017-10-19 18:52 | NUR ---
MS/RN CLOSING NOTES PT REMAINED IN STABLE CONDITION. NO ACUTE DISTRESS NOTED THROUGHOUT SHIFT. SAFETY MEASURES OBSERVED AT ALL TIMES. AIRBORNE ISOLATION MAINTAINED. ALL NEEDS ANTICIPATED. ENDORSED TO PM SHIFT NURSE FOR ERNESTINA. STILL AWAITING FOR LA TB/ SERGIO CLEARANCE
[2017-10-19 20:00] VITALS: BP 135/80
[2017-10-19] MEDS: RIFAMPIN 150 MG CAPSULE PO SCH (21:09)
[2017-10-19] MEDS: ISONIAZID 100 MG TABLET PO SCH (21:09)
[2017-10-19] MEDS: PYRAZINAMIDE 500 MG TABLET PO SCH (21:10)
[2017-10-19] MEDS: ENOXAPARIN SODIUM 30 MG/0.3 ML DISP.SYRIN SQ SCH (21:11)
[2017-10-19] MEDS: TEMAZEPAM 15 MG CAPSULE PO PRN (21:26)
[2017-10-20] MEDS: ALBUTEROL FS 2.5 MG/0.5 ML VIAL.NEB NEB PRN ×2 (01:10→11:48)
[2017-10-20] MEDS: IPRATROPIUM NEB FS 0.5 MG/2.5 ML AMPUL.NEB NEB PRN ×2 (01:10→11:48)
[2017-10-20] MEDS: GUAIFENESIN/D-METHORPHAN HB 5 ML UDC PO PRN (01:28)
[2017-10-20 04:00] VITALS: BP 145/94
[2017-10-20] MEDS: PANTOPRAZOLE 40 MG TABLET.DR PO SCH (07:51)
[2017-10-20] MEDS: ENSURE ENLIVE CHOC 237 ML CAN PO SCH ×2 (07:53→17:57)
[2017-10-20 08:00] VITALS: BP 128/79
[2017-10-20] MEDS: FERROUS SULFATE (325 MG) 325 MG/TAB TABLET PO SCH (08:07)
[2017-10-20] MEDS: PYRIDOXINE HCL 50 MG TABLET PO SCH (08:07)
[2017-10-20] MEDS: MELOXICAM 7.5 MG TABLET PO SCH (08:07)
[2017-10-20] MEDS: MEGESTROL ACETATE SUSP 400 MG/10 ML UDC PO SCH ×2 (08:08→17:56)
--- NOTE | 2017-10-20 08:29 | NUR ---
WOUND CONSULT PATIENT SEEN AND SKIN INTEGRITY ASSESSMENT DONE. SEE [facility] WOUND CARE ASSESSMENT FOR TODAY. RIGHT HAND EVALUATED, NO OPEN WOUND, RECOMMEND LEAVE OPEN TO AIR. DISCUSSED WITH NURSE AT BEDSIDE. Addendum: 10/20/17 at 0831 by RAMANDEEP DAVENPORT Amended: Links added.
--- NOTE | 2017-10-20 11:55 | NUR ---
GERMAN RN NOTES RECEIVED PATIENT REPORT FROM KRYSTAL WYATT TRANSFER OF PATIENT'S CARE.
--- NOTE | 2017-10-20 11:55 | NUR ---
RN NOTE REPORT GIVEN TO KRYSTAL BOWLES FOR ERNESTINA DUE TO CHANGE IN ASSIGNMENT.
--- NOTE | 2017-10-20 14:00 | NUR ---
GERMAN RN NOTES PATIENT IS IN BED , A/OX4, ON NC 2L O2 WITH SATURATION OF 99%, NO SOB, NO DISTRESS NOTED AT THIS TIME. NO IV LINE . PATIENT WAS ASKED TO START NEW IV LINE BUT PATIENT REFUSED. PATIENT STATED FERN WE CAN START NEW IV LINE ONLY IF WE NEED TO ADMINISTER IV MEDICATIONS. PATIENT DOESN'T HAVE ANY IV FLUIDS OR IV MEDICATIONS DURING MY SHIFT. PATIENT ATE 75% OF HIS LUNCH.
[2017-10-20 16:00] VITALS: BP 132/76
[2017-10-20] MEDS: ETHAMBUTOL HCL (400 MG) 400 MG TABLET PO SCH (17:56)
--- NOTE | 2017-10-20 18:00 | NUR ---
GERMAN RN NOTES NO ACUTE CHANGES DURING MY SHIFT, NO SOB NOTED AT THIS TIME. PATIENT STILL REFUSING TO START NEW IV LINE AND STATED THAT WE WILL START IT WHEN IV MEDICATIONS WILL BE ADMINISTERED. PATIENT CARE WILL BE ENDORSED TO PM NURSE WORKMAN.
[2017-10-20 20:00] VITALS: BP 144/78
[2017-10-20] MEDS: HYDROCODONE BIT/HOMATROPINE 5 ML UDC PO PRN (20:29)
[2017-10-20] MEDS: ENOXAPARIN SODIUM 30 MG/0.3 ML DISP.SYRIN SQ SCH (20:42)
[2017-10-20] MEDS: ISONIAZID 100 MG TABLET PO SCH (21:01)
[2017-10-20] MEDS: PYRAZINAMIDE 500 MG TABLET PO SCH (21:02)
[2017-10-20] MEDS: RIFAMPIN 150 MG CAPSULE PO SCH (21:02)
[2017-10-21] MEDS: GUAIFENESIN/D-METHORPHAN HB 5 ML UDC PO PRN ×2 (00:54→21:24)
[2017-10-21] MEDS: TEMAZEPAM 15 MG CAPSULE PO PRN ×2 (00:54→21:24)
[2017-10-21] MEDS: IPRATROPIUM NEB FS 0.5 MG/2.5 ML AMPUL.NEB NEB PRN (01:56)
[2017-10-21] MEDS: ALBUTEROL FS 2.5 MG/0.5 ML VIAL.NEB NEB PRN (01:56)
[2017-10-21 04:00] VITALS: BP 133/82
[2017-10-21 06:43] LABS: BILIRUBIN,TOTAL 0.1 mg/dL (0.2-1.0); CALCIUM, SERUM 7.6 mg/dL (8.5-10.1); CREATININE 0.5 mg/dL (0.6-1.3); POTASSIUM 3.7 mmol/L (3.5-5.1); TOTAL PROTEIN, SERUM 5.5 g/dL (6.4-8.2)
[2017-10-21 06:47] LABS: ALBUMIN 1.4 g/dL (3.4-5.0)
--- NOTE | 2017-10-21 07:10 | NUR ---
MS/RN INITIAL NOTES RECEIVED PT IN BED, ALERT AND VERBALLY RESPONSIVE IN [place]. ON 2LPM O2 VIA NC, TOLERATING WELL, NO SOB NOTED. NO C/O PAIN AT THIS TIME. WITH INTACT F/C DRAINING YELLOW COLORED URINE BY GRAVITY. WITH LHAND G24 SL, INTACT, NO SIGNS OF INFECTION NOTED. HOB ELEVATED. SAFETY MEASURES IN PLACED. CALL LIGHT WITHIN REACH. PER PM NURSE ENDORSEMENT, PT IS FOR D/C TODAY. WILL CONT TO MONITOR Addendum: 10/21/17 at 1049 by DINAH LEVIN RN WRONG ENTRY
--- NOTE | 2017-10-21 07:10 | NUR ---
RN CLOSING NOTES PATIENT WITH NO ACUTE CHANGE IN CONDITION OBSERVED OVERNIGHT. DUE MEDS ORDERED. COUGH MEDICATION AND BREATHING TREATMENT GIVEN PRN ORDERED PER PATIENT'S REQUEST, WITH GOOD HELP. PENDING [employer] RESULTS. AIRBORNE PRECAUTIONS STRICTLY OBSERVED. NEEDS ANTICIPATED AND MET. SAFETY AND COMFORT ENSURED. BED IN LOW AND LOCKED POSITION. CALL LIGHT IN REACH. WILL ENDORSE ACCORDINGLY.
[2017-10-21] MEDS: PANTOPRAZOLE 40 MG TABLET.DR PO SCH (07:53)
[2017-10-21 08:00] VITALS: BP 142/87
[2017-10-21] MEDS: ENSURE ENLIVE CHOC 237 ML CAN PO SCH ×2 (08:00→16:24)
[2017-10-21] MEDS: MELOXICAM 7.5 MG TABLET PO SCH (08:00)
[2017-10-21] MEDS: MEGESTROL ACETATE SUSP 400 MG/10 ML UDC PO SCH ×2 (08:00→16:24)
[2017-10-21] MEDS: PYRIDOXINE HCL 50 MG TABLET PO SCH (08:01)
[2017-10-21] MEDS: FERROUS SULFATE (325 MG) 325 MG/TAB TABLET PO SCH (08:01)
[2017-10-21 16:00] VITALS: BP 134/84
[2017-10-21] MEDS: ETHAMBUTOL HCL (400 MG) 400 MG TABLET PO SCH (17:57)
--- NOTE | 2017-10-21 19:15 | NUR ---
MS/RN CLOSING NOTES PT IN STABLE CONDITION. NO ACUTE DISTRESS NOTED THROUGHOUT SHIFT. SAFETY MEASURES OBSERVED AT ALL TIMES. AIRBORNE PRECAUTION MAINTAINED. ALL NEEDS ANTICIPATED. ENDORSED TO PM NURSE FOR ERNESTINA
--- NOTE | 2017-10-21 19:43 | NUR ---
RN OPENING NOTES RECEIVED REPORT FROM DINAH RICE. PATIENT A/A/O X4, ABLE TO MAKE NEEDS KNOWN IN BOTH RUSSIAN & TAGALOG. BREATHING EVEN & UNLABORED & TOLERATING O2 @ 2LPM VIA NC. PULSES PRESENT & BOUNDING. DENIES ANY RESPIRATORY OR CARDIAC DISTRESS. CONTINUES TO REFUSE NEW IV INSERTION. RISKS & BENEFITS EXPLAINED. DENIES ANY PAIN OR DISCOMFORT @ THIS TIME. SAFETY MEASURES MAINTAINED W/ BED ALARM ON & CALL LIGHT WITHIN REACH. INSTRUCTED TO CALL FOR ASSISTANCE. WILL CONTINUE TO MONITOR.
[2017-10-21 20:00] VITALS: BP 124/77
[2017-10-21] MEDS: PYRAZINAMIDE 500 MG TABLET PO SCH (21:24)
[2017-10-21] MEDS: RIFAMPIN 150 MG CAPSULE PO SCH (21:24)
[2017-10-21] MEDS: ISONIAZID 100 MG TABLET PO SCH (21:24)
[2017-10-22 04:00] VITALS: BP 138/81
--- NOTE | 2017-10-22 07:30 | NUR ---
RN OPENING NOTES RECEIVED REPORT FROM PM RN. PATIENT A/O X4, ABLE TO MAKE NEEDS OWN .SPEAKS IN BOTH YAKUT & TAGALOG. BREATHING EVEN & UNLABORED & TOLERATING O2 @ 2LPM VIA NC. DENIES ANY RESPIRATORY OR CARDIAC DISTRESS. DENIES ANY PAIN OR DISCOMFORT @ THIS TIME. SAFETY MEASURES MAINTAINED W/ BED ALARM ON & CALL LIGHT WITHIN REACH. INSTRUCTED TO CALL FOR ASSISTANCE. WILL CONTINUE TO MONITOR.
[2017-10-22 08:00] VITALS: BP 139/70
[2017-10-22] MEDS: PANTOPRAZOLE 40 MG TABLET.DR PO SCH (08:20)
[2017-10-22] MEDS: MELOXICAM 7.5 MG TABLET PO SCH (08:41)
[2017-10-22] MEDS: MEGESTROL ACETATE SUSP 400 MG/10 ML UDC PO SCH ×2 (08:41→17:00)
[2017-10-22] MEDS: ENSURE ENLIVE CHOC 237 ML CAN PO SCH ×2 (08:41→17:30)
[2017-10-22] MEDS: PYRIDOXINE HCL 50 MG TABLET PO SCH (08:41)
[2017-10-22] MEDS: FERROUS SULFATE (325 MG) 325 MG/TAB TABLET PO SCH (08:41)
[2017-10-22] MEDS: ALBUTEROL FS 2.5 MG/0.5 ML VIAL.NEB NEB PRN ×2 (09:06→15:45)
[2017-10-22] MEDS: IPRATROPIUM NEB FS 0.5 MG/2.5 ML AMPUL.NEB NEB PRN ×2 (09:06→15:45)
--- NOTE | 2017-10-22 10:30 | NUR ---
RN NOTES PATIENT AGREED TO INSERT IV LINE,INSERTED PERIPHERAL IV #22,GOOD BLOOD RETURN NOTICED,SITE IS INTACT AND CLEAN.NO SOB NO DISTRESS NOTED AT THIS TIME WILL CONTINUE TO MONITOR.
[2017-10-22] MEDS: GUAIFENESIN/D-METHORPHAN HB 5 ML UDC PO PRN ×2 (11:26→17:30)
--- NOTE | 2017-10-22 13:05 | NUR ---
RN NOTES SEEN BY MADE AWARE HAVE NEW X RAY RESULT,HE SAID HE WILL CHECK THE X RAY RESULT.
--- NOTE | 2017-10-22 15:25 | NUR ---
RN NOTES SEEN BY WITH NEW ORDERS FOR [employer] ON 10/24/17.
[2017-10-22 16:00] VITALS: BP 137/79
[2017-10-22] MEDS: ETHAMBUTOL HCL (400 MG) 400 MG TABLET PO SCH (17:30)
--- NOTE | 2017-10-22 18:55 | NUR ---
RN CLOSING NOTES PATIENT A/O X4, ABLE TO MAKE NEEDS OWN ,AWAKE ,WATCHING TV IN BED.SPEAKS IN BOTH HUNGARIAN & TAGALOG. BREATHING EVEN & UNLABORED & TOLERATING O2 @ 2LPM VIA NC. DENIES ANY RESPIRATORY OR CARDIAC DISTRESS. DENIES ANY PAIN OR DISCOMFORT @ THIS TIME. SAFETY MEASURES MAINTAINED W/ BED ALARM ON & CALL LIGHT WITHIN REACH. INSTRUCTED TO CALL FOR ASSISTANCE. WILL ENDORSE TO PM NURSE FOR ERNESTINA.
--- NOTE | 2017-10-22 19:00 | NUR ---
MS RN OPENING NOTE RECEIVE PATIENT AWAKE IN BED, A/O X3, NO SOB OR DISTRESS NOTED, CALL LIGHT WITHIN REACH. SAFETY MEASURES IMPLEMENTED. WILL CONTINUE TO MONITOR THROUGHOUT SHIFT
[2017-10-22 20:00] VITALS: BP 143/77
[2017-10-22] MEDS: ISONIAZID 100 MG TABLET PO SCH (21:07)
[2017-10-22] MEDS: PYRAZINAMIDE 500 MG TABLET PO SCH (21:07)
[2017-10-22] MEDS: RIFAMPIN 150 MG CAPSULE PO SCH (21:07)
[2017-10-22] MEDS: TEMAZEPAM 15 MG CAPSULE PO PRN (21:08)
[2017-10-23 04:00] VITALS: BP 128/81
--- NOTE | 2017-10-23 06:12 | NUR ---
MS RN CLOSING NOTES PT COMFORTABLY ASLEEP AND EASILY AWAKEN, STABLE, NOT IN DISTRESS. RESPIRATION EVEN AND UNLABORED. KEPT CLEAN AND DRY AND COMFORTABLE, ALL NURSING CARE RENDERED. NEEDS ATTENDED AND ANTICIPATED, MAINTAINS AIRBORNE ISOLATION. NO COMPLAIN OF PAIN. GOOD SKIN CARE PROVIDED. ON LOW BED AT ALL TIMES TO ENSURE SAFETY. SAFE HAZARD FREE ENVIRONMENT PROVIDED. CALL LIGHT WITHIN EASY TO REACH. WILL ENDORSE NEXT SHIFT CONTINUITY OF CARE.
--- NOTE | 2017-10-23 07:35 | NUR ---
RN NOTE RECEIVED PATIENT AWAKE IN BED WATCHING T.V. ALERT AND ORIENTED X4, HE IS ABLE TO MAKE NEEDS KNOWN AND VERBALIZE NEEDS. BREATHING EVEN AND UNLABORED WITH NO DISTRESS NOTED. ON CONTINUOUS O2 2L VIA NASAL CANULA SATURATING WELL. IV SITE INTACT AND PATENT. ALL SAFETY MEASURES DONE. BED LOW AND LOCKED POSITION. PLACED CALL LIGHT WITHIN REACH. WILL CONTINUE TO MONITOR.
[2017-10-23] MEDS: PANTOPRAZOLE 40 MG TABLET.DR PO SCH (07:50)
[2017-10-23 08:00] VITALS: BP 128/76
[2017-10-23] MEDS: PYRIDOXINE HCL 50 MG TABLET PO SCH (08:08)
[2017-10-23] MEDS: MEGESTROL ACETATE SUSP 400 MG/10 ML UDC PO SCH ×2 (08:08→16:37)
[2017-10-23] MEDS: FERROUS SULFATE (325 MG) 325 MG/TAB TABLET PO SCH (08:08)
[2017-10-23] MEDS: MELOXICAM 7.5 MG TABLET PO SCH (08:08)
[2017-10-23] MEDS: ENSURE ENLIVE CHOC 237 ML CAN PO SCH ×2 (08:09→16:37)
[2017-10-23] MEDS: ALBUTEROL FS 2.5 MG/0.5 ML VIAL.NEB NEB PRN (15:35)
[2017-10-23] MEDS: IPRATROPIUM NEB FS 0.5 MG/2.5 ML AMPUL.NEB NEB PRN (15:36)
[2017-10-23 16:00] VITALS: BP 152/89
--- NOTE | 2017-10-23 17:00 | NUR ---
RN NOTE AF[employer] SPUTUM COLLECTED, CALLED LABORATORY TO TV PRODUCTION ASSISTANT SPECIMEN.
[2017-10-23] MEDS: ETHAMBUTOL HCL (400 MG) 400 MG TABLET PO SCH (17:07)
--- NOTE | 2017-10-23 19:19 | NUR ---
RN NOTE PATIENT REMAINED STABLE THROUGHOUT SHIFT. NO ACUTE CHANGES OR DISTRESS NOTED. WILL ENDORSE TO NEXT SHIFT TO CONTINUE CONTINUITY OF CARE.
[2017-10-23 20:00] VITALS: BP_SYST 141; BP_DIAS 80; BP_DIAS 81
--- NOTE | 2017-10-23 20:00 | NUR ---
RN NOTE RECEIVED BEDSIDE REPORT , PATIENT AWAKE IN BED WATCHING T.V. ALERT AND ORIENTED X4, HE IS ABLE TO MAKE NEEDS KNOWN AND VERBALIZE NEEDS. BREATHING EVEN AND UNLABORED WITH NO DISTRESS NOTED. ON CONTINUOUS O2 2L VIA NASAL CANULA SATURATING WELL. IV SITE INTACT AND PATENT. ALL SAFETY MEASURES IMPLEMENTED. BED LOW AND LOCKED POSITION. PLACED CALL LIGHT WITHIN REACH. WILL CONTINUE TO MONITOR.
[2017-10-23] MEDS: PYRAZINAMIDE 500 MG TABLET PO SCH (22:20)
[2017-10-23] MEDS: ISONIAZID 100 MG TABLET PO SCH (22:21)
[2017-10-23] MEDS: RIFAMPIN 150 MG CAPSULE PO SCH (22:21)
[2017-10-23] MEDS: GUAIFENESIN/D-METHORPHAN HB 5 ML UDC PO PRN (22:46)
[2017-10-24] MEDS: TEMAZEPAM 15 MG CAPSULE PO PRN ×2 (00:09→21:25)
[2017-10-24 04:00] VITALS: BP 122/70
--- NOTE | 2017-10-24 06:00 | NUR ---
RN NOTE PATIENT REMAINED STABLE THROUGHOUT MY SHIFT. NO ACUTE CHANGES OR DISTRESS NOTED. WILL ENDORSE TO NEXT SHIFT FOR CONTINUITY OF PATIENT CARE.
[2017-10-24] MEDS: PANTOPRAZOLE 40 MG TABLET.DR PO SCH (07:24)
--- NOTE | 2017-10-24 07:50 | NUR ---
MS RN NOTES: RECEIVED PT ON BED ALERT, AWAKE AND ORIENTED X4. ABLE TO MAKE NEEDS KNOWN. NO ACUTE DISTRESS NOTED. NO COMPLAINTS OF PAIN OR DISCOMFORT AT THIS TIME. NO SOB NOTED. IV ON LEFT HAND #22 INTACT AND PATENT, FLUSHING WELL. KEPT CLEAN, DRY AND COMFORTABLE. CALL LIGHT PLACED WITHIN REACH. AIRBORNE PRECAUTIONS MAINTAINED. ENCOURAGED TO CALL FOR ASSISTANCE IF NEEDED. WILL CONTINUE TO MONITOR PT.
[2017-10-24 08:00] VITALS: BP 122/79
[2017-10-24] MEDS: FERROUS SULFATE (325 MG) 325 MG/TAB TABLET PO SCH (08:15)
[2017-10-24] MEDS: MELOXICAM 7.5 MG TABLET PO SCH (08:15)
[2017-10-24] MEDS: MEGESTROL ACETATE SUSP 400 MG/10 ML UDC PO SCH ×2 (08:15→16:55)
[2017-10-24] MEDS: PYRIDOXINE HCL 50 MG TABLET PO SCH (08:15)
[2017-10-24] MEDS: ENSURE ENLIVE CHOC 237 ML CAN PO SCH ×2 (08:16→17:07)
[2017-10-24 16:00] VITALS: BP 132/78
[2017-10-24] MEDS: ETHAMBUTOL HCL (400 MG) 400 MG TABLET PO SCH (17:10)
[2017-10-24] MEDS: GUAIFENESIN/D-METHORPHAN HB 5 ML UDC PO PRN (17:27)
--- NOTE | 2017-10-24 18:42 | NUR ---
MS RN NOTES: NO CHANGES THROUGHOUT THE SHIFT. NO COMPLAINTS OF PAIN OR DISCOMFORT AT THIS TIME. PT BREATHING AND UNLABORED WITH NORMAL RESPIRATIONS. KEPT CLEAN, DRY AND COMFORTABLE. SAFETY AND FALL PRECAUTIONS OBSERVED AND MAINTAINED. WILL ENDORSE TO SAFETY COUNCIL DIRECTOR FOR CONTINUITY OF CARE.
[2017-10-24 20:00] VITALS: BP 131/78
--- NOTE | 2017-10-24 20:00 | NUR ---
MS RN NOTE PT IN BED AWAKE. NO DISTRESS OR DISCOMFORT NOTED. DENIES PAIN. A/O X 4, REMAIN IN ISOLATION FOR TB. ISOLATION PRECAUTIONS TAKEN. SL LT HAND #24 G INTACT AND PATENT. ALL NEEDS ATTENDED. SIDE RAILS UP X 3 AND CALL LIGHT WITHIN REACH. VSS. CONTINUE TO MONITOR HIM.
[2017-10-24] MEDS: PYRAZINAMIDE 500 MG TABLET PO SCH (21:25)
[2017-10-24] MEDS: ISONIAZID 100 MG TABLET PO SCH (21:25)
[2017-10-24] MEDS: RIFAMPIN 150 MG CAPSULE PO SCH (21:25)
[2017-10-24] MEDS: ALBUTEROL FS 2.5 MG/0.5 ML VIAL.NEB NEB PRN (22:50)
[2017-10-24] MEDS: IPRATROPIUM NEB FS 0.5 MG/2.5 ML AMPUL.NEB NEB PRN (22:50)
[2017-10-25 04:00] VITALS: BP 128/80
--- NOTE | 2017-10-25 04:00 | NUR ---
MS RN NOTE SPUTUM SPECIMEN COLLECTED AND SENT TO LAB ORDERED.
--- NOTE | 2017-10-25 06:40 | NUR ---
MS 1 RN NOTE NO CHANGE IN CONDITION. PT SLEPT WELL. NO DISTRESS OR DISCOMFORT NOTED. DENIES PAIN. SIDE RAILS UP X 3 AND CALL LIGHT WITHIN REACH. WILL ENDORSE TO DAY SHIFT NURSE FOR CONTINUE TO CARE.
--- NOTE | 2017-10-25 07:15 | NUR ---
MS/RN INITIAL NOTES RECEIVED PT IN BED, A/OX4, ON 2LPM O2 VIA NC, TOLERATING WELL NO SOB NOTED. DENIES PAIN AT THIS TIME. WITH INTACT LHAND SL, NO SIGNS OF INFECTION NOTED. AFEBRILE. AIRBORNE PRECAUTION MAINTAINED. SAFETY MEASURES IN PLACED. CALL LIGHT WITHIN REACH. WILL CONT TO MONITOR
[2017-10-25] MEDS: PANTOPRAZOLE 40 MG TABLET.DR PO SCH (07:40)
[2017-10-25] MEDS: ENSURE ENLIVE CHOC 237 ML CAN PO SCH ×2 (07:46→16:48)
[2017-10-25 08:00] VITALS: BP 124/77
[2017-10-25] MEDS: PYRIDOXINE HCL 50 MG TABLET PO SCH (08:08)
[2017-10-25] MEDS: MEGESTROL ACETATE SUSP 400 MG/10 ML UDC PO SCH ×2 (08:08→16:48)
[2017-10-25] MEDS: MELOXICAM 7.5 MG TABLET PO SCH (08:08)
[2017-10-25] MEDS: FERROUS SULFATE (325 MG) 325 MG/TAB TABLET PO SCH (08:08)
[2017-10-25 16:00] VITALS: BP 131/83
[2017-10-25] MEDS: ETHAMBUTOL HCL (400 MG) 400 MG TABLET PO SCH (17:21)
--- NOTE | 2017-10-25 19:06 | NUR ---
MS/RN CLOSING NOTES PT IN STABLE CONDITION. NO ACUTE DISTRESS NOTED THROUGHOUT SHIFT. SAFETY MEASURES OBSERVED AT ALL TIMES. AIRBORNE PRECAUTION MAINTAINED. ALL NEEDS ANTICIPATED. ENDORSED TO PM SHIFT NURSE FOR ERNESTINA
--- NOTE | 2017-10-25 19:35 | NUR ---
MS 1 RN NOTE PT IN BED AWAKE. A/O X 3, NO SOB, NO DISTRESS OR DISCOMFORT NOTED. DENIES PAIN. REMAIN IN ISOLATION FOR TB, ISOLATION PRECAUTIONS TAKEN. KEPT HIM DRY AND CLEAN. ALL NEEDS ATTENDED. SIDE RAILS UP X 3 AND CALL LIGHT WITHIN REACH. VSS. CONTINUE TO MONITOR HIM.
[2017-10-25 20:00] VITALS: BP 146/81
--- NOTE | 2017-10-25 20:00 | NUR ---
MS 1 RN NOTE REMINDED PT NO EATING 0R DRINKING DUE TO CT ABD AND PELVIS PROCEDURE. PT STATES "I CHANGE MY MIND AND I DON'T WANT THIS PROCEDURE, I BETTER LIVE WITHOUT KNOWING ANYTHING AND I DON'T WANT TO GO THROUGH SURGERY". CHARGE NURSE BRODERICK ALSO MADE AWARE OF PATIENT DECISION. CHARGE NURSE ALSO WENT TO TALK TO HIM.
--- NOTE | 2017-10-25 20:31 | NUR ---
2030 TALKED TO PATIENT REGARDING CT ABDOMEN WITH CONTRAST THAT WAS ORDERED BY DR. GUTIERREZ, PATIENT STRONGLY REFUSED IT STATING " I DON'T WANT TO KNOW WHAT'S GOING ON IN THERE". EXPLAINED TO HIM THE RISKS OF HIS REFUSAL BUT HE CONT. TO REFUSE.
--- NOTE | 2017-10-25 20:35 | NUR ---
2034 KRYSTAL ORDOÑEZ CALLED RADIOLOGY AND NOTIFIED THEM OF PT. REFUSED CT SCAN.
--- NOTE | 2017-10-25 20:36 | NUR ---
MS 1 RN NOTE RADIOLOGY ALSO INFORMED TO WAIT TILL AM. DUE TO PT REFUSED THE PROCEDURE AT THIS TIME.
[2017-10-25] MEDS: ALBUTEROL FS 2.5 MG/0.5 ML VIAL.NEB NEB PRN (21:06)
[2017-10-25] MEDS: IPRATROPIUM NEB FS 0.5 MG/2.5 ML AMPUL.NEB NEB PRN (21:06)
--- NOTE | 2017-10-25 21:14 | NUR ---
MS 1 RN NOTE PT IN BED AWAKE. STATES "I FEEL BETTER WITH BREATHING TX". ASKING FOR COUGH MEDICATION. ROBITUSSIN 5ML PO GIVEN.
[2017-10-25] MEDS: GUAIFENESIN/D-METHORPHAN HB 5 ML UDC PO PRN (21:16)
[2017-10-25] MEDS: PYRAZINAMIDE 500 MG TABLET PO SCH (21:16)
[2017-10-25] MEDS: ISONIAZID 100 MG TABLET PO SCH (21:16)
[2017-10-25] MEDS: RIFAMPIN 150 MG CAPSULE PO SCH (21:17)
[2017-10-25] MEDS: TEMAZEPAM 15 MG CAPSULE PO PRN (21:38)
[2017-10-26 04:00] VITALS: BP 118/75
[2017-10-26 05:58] VITALS: BP 118/75
--- NOTE | 2017-10-26 06:42 | NUR ---
MS 1 RN NOTE PT IN BED AWAKE, NO DISTRESS OR DISCOMFORT NOTED. NO CHANGE IN CONDITION. PT SLEPT WELL. DENIES PAIN. SIDE RAILS UP X 3 AND CALL LIGHT WITHIN REACH. WILL ENDORSE TO DAY SHIFT NURSE FOR CONTINUE TO CARE.
[2017-10-26] MEDS: GUAIFENESIN/D-METHORPHAN HB 5 ML UDC PO PRN (06:57)
[2017-10-26] MEDS: PANTOPRAZOLE 40 MG TABLET.DR PO SCH (06:57)
--- NOTE | 2017-10-26 07:10 | NUR ---
MS/RN NOTES RECEIVED PT IN BED IN SITTING POSITION, ALERT AND VERBALLY RESPONSIVE. DENIES ANY PAIN AT THIS TIME. ON 2L O2 VIA NC, TOLERATING WELL, NO SOB NOTED. WITH INTACT LEFT HAND G22 SL. NO SIGNS OF INFECTION NOTED. SAFETY MEASURES IN PLACED. AIRBORNE PRECAUTION OBSERVED. CALL LIGHT WITHIN REACH. WILL CONT TO MONITOR PER MICHAEL ORDOÑEZ NURSE ENDORSEMENT, PT REFUSED TO HAVE CT ABDOMEN. WILL OFFER AGAIN LATER
[2017-10-26] MEDS: ENSURE ENLIVE CHOC 237 ML CAN PO SCH ×2 (07:58→16:29)
[2017-10-26 08:00] VITALS: BP_SYST 130; BP_SYST 131; BP_DIAS 78
[2017-10-26] MEDS: MELOXICAM 7.5 MG TABLET PO SCH (08:20)
[2017-10-26] MEDS: MEGESTROL ACETATE SUSP 400 MG/10 ML UDC PO SCH ×2 (08:20→16:29)
[2017-10-26] MEDS: FERROUS SULFATE (325 MG) 325 MG/TAB TABLET PO SCH (08:20)
[2017-10-26] MEDS: PYRIDOXINE HCL 50 MG TABLET PO SCH (08:20)
--- NOTE | 2017-10-26 08:30 | NUR ---
RN NOTES OFFERED CT, PT STRONGLY REFUSED DESPITE EXPLANATION OF RISKS AND BENEFITS. PT VERBALIZED, "I DON'T WANNA HAVE ANY TEST ANYMORE, I'M NOT GONNA DO ANY OPERATION ANYWAY." DR GUTIERREZ MADE AWARE
--- NOTE | 2017-10-26 08:41 | NUR ---
PT STILL REFUSING CT SCAN.
[2017-10-26 16:00] VITALS: BP 130/79
[2017-10-26] MEDS: ETHAMBUTOL HCL (400 MG) 400 MG TABLET PO SCH (17:11)
--- NOTE | 2017-10-26 19:26 | NUR ---
RN NOTES PT IN STABLE CONDITION. NO ACUTE DISTRESS NOTED THROUGHOUT SHIFT. SAFETY MEASURES OBSERVED AT ALL TIMES. AIRBORNE ISOLATION MAINTAINED. ALL NEEDS ANTICIPATED. ENDORSED TO PM SHIFT NURSE FOR ERNESTINA
[2017-10-26] MEDS: PYRAZINAMIDE 500 MG TABLET PO SCH (22:24)
[2017-10-26] MEDS: RIFAMPIN 150 MG CAPSULE PO SCH (22:24)
[2017-10-26] MEDS: ISONIAZID 100 MG TABLET PO SCH (22:25)
[2017-10-27] MEDS: GUAIFENESIN/D-METHORPHAN HB 5 ML UDC PO PRN (02:38)
[2017-10-27] MEDS: TEMAZEPAM 15 MG CAPSULE PO PRN (02:38)
[2017-10-27 04:00] VITALS: BP 133/79
[2017-10-27 08:00] VITALS: BP 131/84
--- NOTE | 2017-10-27 08:13 | NUR ---
GERMAN RN NOTES CALLED THE [facility], GIVE THE REPORT TO ADMITTING RN. PATIENT IS A/O X4, NO SOB, NO PAIN AT THIS TIME. DISCHARGE PAPERWORK, DISCHARGE TEACHING AND EXIT CARE IS PROVIDED TO THE PATIENT. ALL SAFETY MEASURES ARE IMPLEMENTED, BED IN LOW, LOCKED POSITION, CALL LIGHT IN REACH. PATIENT CARE WILL BE ENDORSED TO AM NURSE MCDANIEL.
--- NOTE | 2017-10-27 08:15 | NUR ---
RN NOTE PT IN STABLE CONDITION, DISCHARGED TO [facility] VIA AMBULANCE, DISCHARGE INSTRUCTIONS GIVEN TO PT, EXIT CARE DONE, BREATHING TREATMENT DONE TO PT PRIOR LEAVE, BELONGINGS LIST SIGNED AND BELONGINGS PROVIDED TO PT, PAPERS GIVEN TO AMBULANCE PERSONNEL, IV IN LEFT HAND [address], INTACT, PATENT. PICTURES OF SKIN TAKEN AND PLACED IN THE CHART.
== END 2017-10-27 08:54 | disposition short-term general hospital (02) | DRG 853 ==
LOC: ER 14:57 → TELE1 17:01 → MEDSG1 10-14 09:58
PROVIDERS: ADMIT Nurse Practitioner Acute Care; ATTEND Nurse Practitioner Acute Care
PROC: 0B9M8ZX Drainage of Bilateral Lungs, Via Natural or Artificial Opening Endoscopic, Diagnostic (ICD-10-PCS; principal; 2017-09-27 14:30)
PROC: 0DB68ZX Excision of Stomach, Via Natural or Artificial Opening Endoscopic, Diagnostic (ICD-10-PCS; 2017-09-29)
PROC: 0DBM8ZX Excision of Descending Colon, Via Natural or Artificial Opening Endoscopic, Diagnostic (ICD-10-PCS; 2017-09-29 07:00)
DX: A19.9 Miliary tuberculosis, unspecified (principal); E43 Unspecified severe protein-calorie malnutrition; J96.01 Acute respiratory failure with hypoxia; N17.0 Acute kidney failure with tubular necrosis; J96.02 Acute respiratory failure with hypercapnia; I50.33 Acute on chronic diastolic (congestive) heart failure; J15.9 Unspecified bacterial pneumonia; J44.1 Chronic obstructive pulmonary disease with (acute) exacerbation; E87.1 Hypo-osmolality and hyponatremia; J44.0 Chronic obstructive pulmonary disease with (acute) lower respiratory infection; C16.9 Malignant neoplasm of stomach, unspecified; R64 Cachexia; Z68.1 Body mass index [BMI] 19.9 or less, adult; K92.2 Gastrointestinal hemorrhage, unspecified; D50.9 Iron deficiency anemia, unspecified; E87.6 Hypokalemia; N43.3 Hydrocele, unspecified; E83.51 Hypocalcemia; F17.200 Nicotine dependence, unspecified, uncomplicated; F41.9 Anxiety disorder, unspecified; F32.9 Major depressive disorder, single episode, unspecified; N45.3 Epididymo-orchitis; E88.09 Other disorders of plasma-protein metabolism, not elsewhere classified; M62.50 Muscle wasting and atrophy, not elsewhere classified, unspecified site; D47.3 Essential (hemorrhagic) thrombocythemia; D50.0 Iron deficiency anemia secondary to blood loss (chronic); K64.0 First degree hemorrhoids; F10.21 Alcohol dependence, in remission; D72.829 Elevated white blood cell count, unspecified; K63.5 Polyp of colon; E86.1 Hypovolemia; Z79.899 Other long term (current) drug therapy; I11.0 Hypertensive heart disease with heart failure
CPT/HCPCS: 36415; 71045-TC; 71260-TC; 74178; 76870-TC; 80048-TC; 80053-TC; 80061-TC; 80076-TC; 81000-TC; 82105; 82272-TC; 82378; 82728-TC; 82746; 82784; 83540-TC; 83615-TC; 83735-TC; 83880; 83935-TC; 84100-TC; 84155; 84165; 84300-TC; 84443-TC; 84484-TC; 84550-TC; 84702-TC; 85025-TC; 86334; 86850-TC; 87070-TC; 87081-TC; 87102-TC; 87116; 87206; 87400; 87491; 87556; 87591; 88305-TC; 88312-TC; 88313-TC; 88342; 93307-TC; 94640-TC; 94799-TC; A4216; A4218; A4606; A6253; A6402; A6403; A9563; J0696; J1100; J1650; J1940; J1956; J2060; J2250; J2920; J3010; J3475; J3490; J7030; J7040; J7042; J7050; J7060; J7070; Q9967; Z7610